=== PATIENT | male | born 1965 | race Caucasian/White ===

== ENCOUNTER → 2017-01-15 | Outpatient (CLI) | payer MEDICARE, OTHER ==
[2017-01-15 13:22] VITALS: BP 134/63; PULSE 65; RESP 16; TEMP 98.2; BMI 39.4
[2017-01-15 14:47] LABS: CH 27.8; CHCM 31.3; HCT 43.5 % (39.0-53.0); HDW 2.38; HGB 13.7 gm/dL (13.0-17.5); Hypochromasia Slight; MCHC 31.4 g/dL (31.0-37.0); MCV 89.2 fL (80.0-100.0); Mean Platelet Volume 8.1; RBC 4.88 m/uL (4.30-5.90); RDW 14.5 % (11.5-15.5); WBC 5.3 k/uL (3.8-10.6)
[2017-01-15 14:54] LABS: INR 1.1 (<1.2); Partial Thromboplastin Time 23.3 sec (22.0-30.0); Prothrombin Time 11.1 sec (9.0-12.0)
[2017-01-15 15:02] LABS: ALT 54 U/L (21-72); AST 47 U/L (17-59); Alkaline Phosphatase 95 U/L (38-126); Anion Gap 8 mmol/L; Blood Urea Nitrogen 29 mg/dL (9-20); Calcium 9.4 mg/dL (8.4-10.2); Carbon Dioxide 28 mmol/L (22-30); Chloride 103 mmol/L (98-107); Cholesterol 137 mg/dL (<200); Glucose 87 mg/dL (74-99); HDL Cholesterol 62 mg/dL (40-60); Iron 46 ug/dL (49-181); Magnesium 1.8 mg/dL (1.6-2.3); Non-African American GFR(MDRD) >60 (>60 ml/min/1.73 sqM); Phosphorous 3.9 mg/dL (2.5-4.5); Potassium 5.2 mmol/L (3.5-5.1); Sodium 139 mmol/L (137-145); Total Bilirubin 0.5 mg/dL (0.2-1.3); Total Protein 7.3 g/dL (6.3-8.2)
[2017-01-15 15:18] LABS: % Iron Saturation 11.8 % (20-50); Prealbumin 25 mg/dL (18-36); Total Iron Binding Capacity 391 ug/dL (261-462)
[2017-01-15 17:45] LABS: Vitamin B12 536 pg/mL (239-931)
[2017-01-15 19:10] LABS: Hemoglobin A1C 5.6 % (4.2-6.1)
[2017-01-17 15:41] LABS: Selenium 127 mcg/L (63-160)
--- NOTE | 2017-01-26 15:21 | P.PN ---
Progress Note - Text DATE OF SERVICE: 01/15/2017 CHIEF COMPLAINT: Followup gastric bypass. HISTORY OF PRESENT ILLNESS: Darion Dickerson is a 51-year-old gentleman who is status post Tj-en-Y gastric bypass from January 2013. He is 4 years out. He reports multiple stressors at home where he is now gained moderate weight. Since his follow-up 1 year ago, he has gained 24 pounds. He now reports new gastroesophageal reflux disease. He is no longer smoking. He is drinking high carbohydrate beverages including Vasiliy-Aid. He also reports developing fatigue. His highest weight for his 5 foot 7 frame was 429 pounds. Today he comes in weighing 251 pounds. He has maintained 178 pound weight loss. Percent excess weight loss is 66 %. His body mass index has been reduced from 67.2 down to 39.5. Total BMI point reduction is 27.9. PAST MEDICAL HISTORY: 1. Morbid obesity. 2. Depression. 3. Osteoarthritis. 4. Hypothyroidism. 5. Gastroesophageal reflux disease, resolved. 6. Cataracts. 7. Carpal tunnel syndrome. 8. Obstructive sleep apnea, resolved. 9. Diabetes type 2, resolved. 10. Anxiety disorder. 11. Dyslipidemia, resolved. PAST SURGICAL HISTORY: 1. Open Tj-en-Y gastric bypass. 2. Bilateral ACL repair. 3. Upper endoscopy. 4. Bilateral carpal tunnel release. 5. Bilateral cataract extraction. 6. Drainage of subcutaneous abdominal abscess. 7. Laparoscopic cholecystectomy. 8. Panniculectomy. MEDICATIONS: 1. Wellbutrin. 2. Vitamin D. 3. Saphris. 4. Vitamin A. 5. Synthroid. 6. Probiotic. 7. Prozac. 8. MiraLax. 9. Multivitamin. ALLERGIES: PENICILLIN. SOCIAL HISTORY: He has discontinued tobacco use. FAMILY HISTORY: Pertinent for morbid obesity including diabetes and obstructive sleep apnea. REVIEW OF SYSTEMS: CONSTITUTIONAL: [place] body weight of 158 pounds. Highest was at 429 pounds. A 178 pound weight loss. A 66% excess weight loss. He is overweight by 93 pounds. ENDOCRINE: Complete resolution of insulin-dependent diabetes. History of hypothyroidism. GASTROINTESTINAL: Resolution of constipation with probiotics. New reports of gastroesophageal reflux disease. HEENT: Wears glasses. No troubles with hearing. PSYCH: History of depression including prior psychosis, now well controlled with medications. CARDIOVASCULAR: No recent heart attack or chest pain. RESPIRATORY: No active sleep apnea. No reports of asthma. MUSCULOSKELETAL: Improvement of osteoarthritis of the joints. NEUROLOGIC: Denies any headache or seizure disorders. HEMATOLOGIC: Denies any easy bruising or bleeding. SKIN: Resolved panniculitis. No skin cancer. PHYSICAL EXAM: VITAL SIGNS: 5 feet 7 inches; 251 pounds. Body mass index 39.5. Vital Signs 01/15/17 13:19 Temperature 98.2 F Pulse Rate 65 Respiratory 16 Rate Blood Pressure 134/63 ABDOMEN: Soft, nontender. Nondistended. GENERAL: Well-developed male in no acute distress. HEENT: No sclera icterus. Extraocular movements grossly intact. Moist buccal mucosa. Head is atraumatic, normocephalic. Hears conversational speech. No nasal drainage. NECK: Supple without lymphadenopathy. No JV distention. CHEST: Non-labored respirations and equal bilateral excursions. CARDIOVASCULAR: Regular rate and rhythm. Palpable 2+ radial pulses. MUSCULOSKELETAL: No clubbing, cyanosis or edema. NEUROLOGIC: No focal or lateralizing signs. Cranial 2 through 12 intact. PSYCH: Appropriate affect. Alert and oriented to person, place and time. SKIN: Well perfused. Good skin turgor. LABS: Laboratory Last Values WBC 5.3 k/uL (3.8-10.6) 01/15/17 14:10 RBC 4.88 m/uL (4.30-5.90) 01/15/17 14:10 Hgb 13.7 gm/dL (13.0-17.5) 01/15/17 14:10 Hct 43.5 % (39.0-53.0) 01/15/17 14:10 MCV 89.2 fL (80.0-100.0) 01/15/17 14:10 MCH 28.0 pg (25.0-35.0) 01/15/17 14:10 MCHC 31.4 g/dL (31.0-37.0) 01/15/17 14:10 RDW 14.5 % (11.5-15.5) 01/15/17 14:10 Plt Count 239 k/uL (150-450) 01/15/17 14:10 Hypochromasia Slight 01/15/17 14:10 PT 11.1 sec (9.0-12.0) 01/15/17 14:10 INR 1.1 (<1.2) 01/15/17 14:10 APTT 23.3 sec (22.0-30.0) 01/15/17 14:10 Sodium 139 mmol/L (137-145) 01/15/17 14:10 Potassium 5.2 mmol/L (3.5-5.1) H 01/15/17 14:10 Chloride 103 mmol/L (98-107) 01/15/17 14:10 Carbon Dioxide 28 mmol/L (22-30) 01/15/17 14:10 Anion Gap 8 mmol/L 01/15/17 14:10 BUN 29 mg/dL (9-20) H 01/15/17 14:10 Creatinine 0.80 mg/dL (0.66-1.25) 01/15/17 14:10 Est GFR (MDRD) Af Amer >60 (>60 ml/min/1.73 sqM) 01/15/17 14:10 Est GFR (MDRD) Non-Af >60 (>60 ml/min/1.73 sqM) 01/15/17 14:10 Glucose 87 mg/dL (74-99) 01/15/17 14:[address] Glu mg/dL 114 mg/dL 01/15/17 14:10 Hemoglobin A1c 5.6 % (4.2-6.1) 01/15/17 14:10 Calcium 9.4 mg/dL (8.4-10.2) 01/15/17 14:10 Phosphorus 3.9 mg/dL (2.5-4.5) 01/15/17 14:10 Magnesium 1.8 mg/dL (1.6-2.3) 01/15/17 14:10 Iron 46 ug/dL (49-181) L 01/15/17 14:10 TIBC 391 ug/dL (261-462) 01/15/17 14:10 % Saturation 11.8 % (20-50) L 01/15/17 14:10 Ferritin 8 ng/mL (18-464) L 01/15/17 14:10 Total Bilirubin 0.5 mg/dL (0.2-1.3) 01/15/17 14:10 AST 47 U/L (17-59) 01/15/17 14:10 ALT 54 U/L (21-72) 01/15/17 14:10 Alkaline Phosphatase 95 U/L (38-126) 01/15/17 14:10 Total Protein 7.3 g/dL (6.3-8.2) 01/15/17 14:10 Albumin 4.4 g/dL (3.5-5.0) 01/15/17 14:10 Prealbumin 25 mg/dL (18-36) 01/15/17 14:10 Triglycerides 90 mg/dL (<150) 01/15/17 14:10 Cholesterol 137 mg/dL (<200) 01/15/17 14:10 LDL Cholesterol, Calc 57 mg/dL (0-99) 01/15/17 14:10 HDL Cholesterol 62 mg/dL (40-60) H 01/15/17 14:10 Vitamin A 52 ug/dL (38-106) 01/15/17 14:10 Vitamin B1 68 ug/L (38-122) 01/15/17 14:10 Vitamin B12 536 pg/mL (239-931) 01/15/17 14:10 Vitamin D 25-Hydroxy 31.8 ng/mL (30.0-100.0) 01/15/17 14:10 Folate 19.70 ng/mL (>2.75) 01/15/17 14:10 TSH 2.100 mIU/L (0.465-4.680) 01/15/17 14:10 PTH Intact 81.1 pg/mL (14.0-72.0) H 01/15/17 14:10 Copper 1058 ug/L (665-1480) 01/15/17 14:10 Selenium 127 mcg/L (63-160) 01/15/17 14:10 Zinc 59 ug/dL (60-130) L 01/15/17 14:10 ASSESSMENT: 1. Morbid obesity due to excess caloric intake 2. Body mass index reduced from 67.2 down to 39.5. 3. Status post massive weight loss, 178 pounds. 4. History of Tj-en-Y gastric bypass. 5. Weight regain following bariatric procedure. 6. Dysphagia to solid foods. 7. Zinc deficiency. 8. Secondary hyperparathyroidism. 9. Iron deficiency anemia. 10. Chronic constipation. PLAN: 1. Recommend upper endoscopy with balloon dilatation. 2. Recommend bariatric metabolic panel. 3. MiraLAX for constipation. 4. Zinc supplement. 5. Iron supplement.
== END | disposition home or self-care (01) ==
LOC: BARWHC3 12:58
PROVIDERS: ATTEND Surgery Plastic and Reconstructive Surgery
DX: Z48.815 Encounter for surgical aftercare following surgery on the digestive system (principal); E60 Dietary zinc deficiency; N25.81 Secondary hyperparathyroidism of renal origin; D50.9 Iron deficiency anemia, unspecified; F32.9 Major depressive disorder, single episode, unspecified; M19.90 Unspecified osteoarthritis, unspecified site; E03.9 Hypothyroidism, unspecified; G56.00 Carpal tunnel syndrome, unspecified upper limb; F41.9 Anxiety disorder, unspecified; E89.1 Postprocedural hypoinsulinemia; D50.8 Other iron deficiency anemias; K90.89 Other intestinal malabsorption; E55.9 Vitamin D deficiency, unspecified; K76.9 Liver disease, unspecified; T56.894A Toxic effect of other metals, undetermined, initial encounter; K50.90 Crohn's disease, unspecified, without complications; E66.01 Morbid (severe) obesity due to excess calories; Z68.39 Body mass index [BMI] 39.0-39.9, adult; Z79.899 Other long term (current) drug therapy; Z88.0 Allergy status to penicillin; Z98.84 Bariatric surgery status
CPT/HCPCS: 84255; 84134; 84425; 80061; 80053; 82607; 82728; 83036; 82525; 82746; 83540; 83550; 83735; 84100; 84443; 84590; 84630; 85027; 85610; 85730; 82306; 83970; G0463; 99211

== ENCOUNTER 2017-01-23 11:11 | Day surgery (SDC) | payer MEDICARE, OTHER ==
[2017-01-22 09:00] VITALS: BMI 39.4
[2017-01-23 11:31] VITALS: RESP 16; TEMP 97.5
[2017-01-23] MEDS: LACTATED RINGERS 1,000 ML IV SCH ×2 (11:40→12:16)
[2017-01-23] MEDS ORDERED: LIDOCAINE 1% 20 ML VIAL (10MG/ML) FOR IV START INTRADERMA ONE (11:41)
[2017-01-23] MEDS ORDERED: LIDOCAINE 1% INJ 10MG/ML (20 ML MDV) ONE (12:19)
[2017-01-23] MEDS ORDERED: PROPOFOL 10 MG/ML 20 ML VIAL IV ONE (12:19)
--- NOTE | 2017-01-23 12:36 | P.GSHP ---
History of Present Illness H&P Date: 01/23/17 CHIEF COMPLAINT: GERD HISTORY OF PRESENT ILLNESS: The patient is a 51-year-old male who presents reports gastroesophageal reflux disease. Upper endoscopy was offered for further evaluation and management. PAST MEDICAL HISTORY: Please see list. PAST SURGICAL HISTORY: Please see list. MEDICATIONS: Please see list. ALLERGIES: Please see list. SOCIAL HISTORY: No illicit drug use FAMILY HISTORY: No reports of Crohn disease or ulcerative colitis. REVIEW OF ORGAN SYSTEMS: CONSTITUTIONAL: No reports of fevers or chills. GI: Denies any blood in stools or constipation. PHYSICAL EXAM: VITAL SIGNS: Stable GENERAL: Well-developed and pleasant in no acute distress. HEENT: No scleral icterus. Extraocular movements grossly intact. Moist buccal mucosa. NECK: Supple without lymphadenopathy. CHEST: Unlabored respirations. Equal bilateral excursions. CARDIOVASCULAR: Regular rate and rhythm. Distal 2+ pulses. ABDOMEN: Soft, nondistended. MUSCULOSKELETAL: No clubbing, cyanosis, or edema. ASSESSMENT: 1. Gastroesophageal reflux disease PLAN: 1. Recommend proceeding with an upper endoscopy Past Medical History Past Medical History: Sleep Apnea/CPAP/BIPAP, Thyroid Disorder Additional Past Medical History / Comment(s): Sinus Problems, Arthritis, Physical limitations, Eating Disorder and fractures. History of Any Multi-Drug Resistant Organisms: None Reported, MRSA Date of last positivie culture/infection: 2012 MDRO Source:: wound Past Surgical History: Bariatric Surgery, Cholecystectomy, Orthopedic Surgery Additional Past Surgical History / Comment(s): Carpal Tunnel,Foot Surgery L Knee ACL,gastric bypass 02/02/2016, elbow surgery bilateral, panniculectomy Past Anesthesia/Blood Transfusion Reactions: Previous Problems w/ Anesthesia, Motion Sickness Additional Past Anesthesia/Blood Transfusion Reaction / Comment(s): Difficult to rouse after administration of anesthesia, motion sickness. Smoking Status: Never smoker - Past Family History Sister(s) Family Medical History: Deep Vein Thrombosis (DVT) Medications and Allergies Home Medications Medication Instructions Recorded Confirmed Type Calcium Citrate/Vitamin D3 3 each PO DAILY 11/10/13 01/23/17 History [Calcium Citrate - Vit D3 Tab] Levothyroxine Sodium [Synthroid] 50 mcg PO DAILY 11/10/13 01/23/17 History FLUoxetine HCL [PROzac] 60 mg PO DAILY 01/19/14 01/23/17 History Asenapine Maleate [Saphris] 15 mg SL HS 10/24/14 01/23/17 History Multivitamin [Men's Multi-Vitamin] 1 each PO DAILY 10/24/14 01/23/17 History Vitamin A 8,000 unit PO DAILY 10/24/14 01/23/17 History Cholecalciferol [Vitamin D3] 1,000 unit PO DAILY 01/12/15 01/23/17 History buPROPion XL [Wellbutrin XL] 450 mg PO DAILY 01/20/15 01/23/17 History L.acidoph,Paracasei, B.lactis 1 each PO DAILY 08/23/15 01/23/17 History [Probiotic] Omeprazole [PriLOSEC] 40 mg PO DAILY 01/15/17 01/23/17 History Allergies Allergy/AdvReac Type Severity Reaction Status Date / Time Penicillins Allergy Rash/Hives Verified 01/23/17 11:19 Surgical - Exam Vital Signs Temp Pulse Resp BP Pulse Ox 97.5 F L 53 L 16 110/67 97 01/23/17 11:30 01/23/17 11:30 01/23/17 11:30 01/23/17 11:30 01/23/17 11:30
--- NOTE | 2017-01-23 12:40 | P.PCN ---
Date of Procedure: 01/23/17 Preoperative Diagnosis: Postoperative Diagnosis: Procedure(s) Performed: Implants: Indications for Procedure: Operative Findings: Description of Procedure: PREOPERATIVE DIAGNOSIS: Dysphagia. s/p Tj-en-y gastric bypass. Gastroesophageal reflux disease. POSTOPERATIVE DIAGNOSIS: Dysphagia. s/p Tj-en-y gastric bypass. Gastric stenosis. Gastroesophageal reflux disease. Gastrointestinal anomaly involving stomach and jejunum. OPERATION: Esophagogastrojejunoscopy with balloon dilatation from 16 to 20 mm. SURGEON: Lisseth Sexton MD ANESTHESIA: MAC. INDICATIONS: The patient is a 51-year-old male who presents with a history of dysphagia, gastric bypass including new-onset nausea and vomiting. Benefits and risks of the procedure were described. Informed consent was obtained. DESCRIPTION: The patient was brought into the endoscopy suite and laid in the left lateral decubitus position. After a timeout was confirmed, the procedure was initiated. An Olympus gastroscope was passed along the posterior oropharynx down to the distal esophagus where the squamocolumnar junction was unremarkable. The gastric pouch was entered. A gastrojejunal stricture of 16 mm was found as the adult gastroscope was 9.5 mm in size. A [employer] balloon dilator was placed through the scope. Final insufflation up to 20 mm was performed with a total of 2 minutes. The scope was advanced up to 50 cm from the incisors into the Tj limb. The mucosa of the gastrojejunal anastomosis was intact. No chronic gastrojejunal marginal ulcer was encountered. No full-thickness injury was encountered. The GI tract was desufflated. The patient tolerated the procedure well. The patient had an unusual gastric anomaly where 3 orifices were identified from his gastric pouch. Each orifice was probed consistent with jejunum. Separately, gastric gastric fistula cannot be excluded. FINDINGS: Stricture of approximately 16 mm encountered. No chronic gastrojejunal ulceration encountered. Successful balloon dilatation to 20 mm. Gastric pouch 3 cm. The patient had an unusual gastric anomaly where 3 orifices were identified from his gastric pouch. Each orifice was probed consistent with jejunum. Separately, gastric gastric fistula cannot be excluded. RECOMMENDATIONS: Recommend upper GI for further assessment Plan - Discharge Summary New Discharge Prescriptions: No Action Calcium Citrate/Vitamin D3 [Calcium Citrate - Vit D3 Tab] 3 each PO DAILY Levothyroxine Sodium [Synthroid] 50 mcg PO DAILY FLUoxetine HCL [PROzac] 60 mg PO DAILY Vitamin A 8,000 unit PO DAILY Asenapine Maleate [Saphris] 15 mg SL HS Multivitamin [Men's Multi-Vitamin] 1 each PO DAILY Cholecalciferol [Vitamin D3] 1,000 unit PO DAILY buPROPion XL [Wellbutrin XL] 450 mg PO DAILY Polyethylene Glycol 3350 [Miralax] 17 gm PO DAILY #765 powder L.acidoph,Paracasei, B.lactis [Probiotic] 1 each PO DAILY Omeprazole [PriLOSEC] 40 mg PO DAILY Discharge Medication List Calcium Citrate/Vitamin D3 [Calcium Citrate - Vit D3 Tab] 3 each PO DAILY [History] Levothyroxine Sodium [Synthroid] 50 mcg PO DAILY 11/10/13 [History] FLUoxetine HCL [PROzac] 60 mg PO DAILY 01/19/14 [History] Asenapine Maleate [Saphris] 15 mg SL HS 10/24/14 [History] Multivitamin [Men's Multi-Vitamin] 1 each PO DAILY 10/24/14 [History] Vitamin A 8,000 unit PO DAILY 10/24/14 [History] Cholecalciferol [Vitamin D3] 1,000 unit PO DAILY 01/12/15 [History] buPROPion XL [Wellbutrin XL] 450 mg PO DAILY 01/20/15 [History] Polyethylene Glycol 3350 [Miralax] 17 gm PO DAILY #765 powder 07/26/15 [Rx] L.acidoph,Paracasei, B.lactis [Probiotic] 1 each PO DAILY 08/23/15 [History] Omeprazole [PriLOSEC] 40 mg PO DAILY 01/15/17 [History]
[2017-01-23 13:02] VITALS: BP 121/70; PULSE 54
--- NOTE | 2017-01-23 14:38 | FL ---
EXAMINATION TYPE: FL esophagus cervic/pharynx DATE OF EXAM: 01/23/2017 HISTORY: History of gastric bypass surgery 3 years ago with significant weight loss. Had EGD today wi dilatation. Abnormal findings during endoscopy today. COMPARISON: CT abdomen and pelvis March 31, 2013 TECHNIQUE: A single contrast esophagram is performed utilizing Gastrografin due to procedure earlier today. A total of 51 seconds of fluoroscopic time was utilized during procedure. FINDINGS: Preprocedure mottler machine feeder image shows cholecystectomy clips. Numerous sutures and clips just below diaphragm are present consistent with patient's surgical history. Patient drank contrast without difficulty. The esophagus shows satisfactory motility and emptying int o the gastric remnant. Along the left lateral margin of remnant There is contained linear outpouching. There is subsequent flow into small bowel anastomosis along ri ght inferior margin into small bowel loops inferior to this. A second area of contained linear extrav asation along the level of anastomosis left lateral margin is also identified. This is slightly more irregular and longer in appearance and slightly more prominent in size. No free extravasation is wisam dent. No communication with the gastric remnant is definitively identified. IMPRESSION: Correlating with EGD note there is primary anastomosis and 2 abnormal tracts or diverticu lum from the remnant stomach as detailed above.
== END 2017-01-23 13:03 | disposition home or self-care (01) ==
LOC: ORWHC2ENDO 11:11
PROVIDERS: ATTEND Surgery Plastic and Reconstructive Surgery
DX: K31.89 Other diseases of stomach and duodenum (principal); Q45.8 Other specified congenital malformations of digestive system; K21.9 Gastro-esophageal reflux disease without esophagitis; Z98.84 Bariatric surgery status; E07.89 Other specified disorders of thyroid; G47.33 Obstructive sleep apnea (adult) (pediatric); Z99.89 Dependence on other enabling machines and devices; Z79.899 Other long term (current) drug therapy; Z88.0 Allergy status to penicillin
CPT/HCPCS: 74210; 43245; Q9967; J2001; J2704; C1726; 43220

== ENCOUNTER → 2017-02-05 | Outpatient (CLI) | payer MEDICARE, OTHER ==
--- NOTE | 2017-03-15 04:57 | P.PN ---
Progress Note - Text DATE OF SERVICE: 02/05/2017 CHIEF COMPLAINT: Followup gastric bypass. HISTORY OF PRESENT ILLNESS: Darion Dickerson is a 51-year-old gentleman who is status post Tj-en-Y gastric bypass from January 2013. He is 4 years out. His highest weight for his 5 foot 7 frame was 429 pounds. Today he comes in weighing 248 pounds. He has maintained 181 pound weight loss. Percent excess weight loss is 67 %. His body mass index has been reduced from 67.2 down to 38.9. He complained of recent increasing abdominal pain of the epigastrium. He had an upper endoscopy with findings of anatomical abnormality of his gastrojejunal bypass. Separately, he complains of malodorous flatulence. With his increased epigastric abdominal pain and findings of anatomical abnormality of his procedure, he presents for surgical evaluation. PAST MEDICAL HISTORY: 1. Morbid obesity. 2. Depression. 3. Osteoarthritis. 4. Hypothyroidism. 5. Gastroesophageal reflux disease, resolved. 6. Cataracts. 7. Carpal tunnel syndrome. 8. Obstructive sleep apnea, resolved. 9. Diabetes type 2, resolved. 10. Anxiety disorder. 11. Dyslipidemia, resolved. PAST SURGICAL HISTORY: 1. Open Tj-en-Y gastric bypass. 2. Bilateral ACL repair. 3. Upper endoscopy. 4. Bilateral carpal tunnel release. 5. Bilateral cataract extraction. 6. Drainage of subcutaneous abdominal abscess. 7. Laparoscopic cholecystectomy. 8. Panniculectomy. MEDICATIONS: 1. Wellbutrin. 2. Vitamin D. 3. Saphris. 4. Vitamin A. 5. Synthroid. 6. Probiotic. 7. Prozac. 8. MiraLax. 9. Multivitamin. ALLERGIES: PENICILLIN. SOCIAL HISTORY: He has discontinued tobacco use. FAMILY HISTORY: Pertinent for morbid obesity including diabetes and obstructive sleep apnea. REVIEW OF SYSTEMS: CONSTITUTIONAL: [place] body weight of 158 pounds. Highest was at 429 pounds. A 181 pound weight loss. A 67% excess weight loss. He is overweight by 90 pounds. ENDOCRINE: Complete resolution of insulin-dependent diabetes. History of hypothyroidism. GASTROINTESTINAL: Resolution of constipation with probiotics. New reports of gastroesophageal reflux disease. HEENT: Wears glasses. No troubles with hearing. PSYCH: History of depression including prior psychosis, now well controlled with medications. CARDIOVASCULAR: No recent heart attack or chest pain. RESPIRATORY: No active sleep apnea. No reports of asthma. MUSCULOSKELETAL: Improvement of osteoarthritis of the joints. NEUROLOGIC: Denies any headache or seizure disorders. HEMATOLOGIC: Denies any easy bruising or bleeding. SKIN: Resolved panniculitis. No skin cancer. PHYSICAL EXAM: VITAL SIGNS: 5 feet 7 inches; 248 pounds. Body mass index 38.9. Vital Signs Temp 98.4 F 02/05/17 14:31 Pulse 64 02/05/17 14:31 Resp 16 02/05/17 14:31 BP 134/67 02/05/17 14:31 Pulse Ox ABDOMEN: Soft. Nondistended. Mild tenderness of the epigastrium. GENERAL: Well-developed male in no acute distress. HEENT: No sclera icterus. Extraocular movements grossly intact. Moist buccal mucosa. Head is atraumatic, normocephalic. Hears conversational speech. No nasal drainage. NECK: Supple without lymphadenopathy. No JV distention. CHEST: Non-labored respirations and equal bilateral excursions. CARDIOVASCULAR: Regular rate and rhythm. Palpable 2+ radial pulses. MUSCULOSKELETAL: No clubbing, cyanosis or edema. NEUROLOGIC: No focal or lateralizing signs. Cranial 2 through 12 intact. PSYCH: Appropriate affect. Alert and oriented to person, place and time. SKIN: Well perfused. Good skin turgor. STUDIES: Upper endoscopy findings and images reviewed with him demonstrating 3 different orifices along his gastrojejunostomy. Upper GI study also reviewed in detail with imaging confirming abnormality of his gastrojejunostomy bypass. LABS: Laboratory Last Values WBC 5.3 k/uL (3.8-10.6) 01/15/17 14:10 RBC 4.88 m/uL (4.30-5.90) 01/15/17 14:10 Hgb 13.7 gm/dL (13.0-17.5) 01/15/17 14:10 Hct 43.5 % (39.0-53.0) 01/15/17 14:10 MCV 89.2 fL (80.0-100.0) 01/15/17 14:10 MCH 28.0 pg (25.0-35.0) 01/15/17 14:10 MCHC 31.4 g/dL (31.0-37.0) 01/15/17 14:10 RDW 14.5 % (11.5-15.5) 01/15/17 14:10 Plt Count 239 k/uL (150-450) 01/15/17 14:10 Hypochromasia Slight 01/15/17 14:10 PT 11.1 sec (9.0-12.0) 01/15/17 14:10 INR 1.1 (<1.2) 01/15/17 14:10 APTT 23.3 sec (22.0-30.0) 01/15/17 14:10 Sodium 139 mmol/L (137-145) 01/15/17 14:10 Potassium 5.2 mmol/L (3.5-5.1) H 01/15/17 14:10 Chloride 103 mmol/L (98-107) 01/15/17 14:10 Carbon Dioxide 28 mmol/L (22-30) 01/15/17 14:10 Anion Gap 8 mmol/L 01/15/17 14:10 BUN 29 mg/dL (9-20) H 01/15/17 14:10 Creatinine 0.80 mg/dL (0.66-1.25) 01/15/17 14:10 Est GFR (MDRD) Af Amer >60 (>60 ml/min/1.73 sqM) 01/15/17 14:10 Est GFR (MDRD) Non-Af >60 (>60 ml/min/1.73 sqM) 01/15/17 14:10 Glucose 87 mg/dL (74-99) 01/15/17 14:[address] Glu mg/dL 114 mg/dL 01/15/17 14:10 Hemoglobin A1c 5.6 % (4.2-6.1) 01/15/17 14:10 Calcium 9.4 mg/dL (8.4-10.2) 01/15/17 14:10 Phosphorus 3.9 mg/dL (2.5-4.5) 01/15/17 14:10 Magnesium 1.8 mg/dL (1.6-2.3) 01/15/17 14:10 Iron 46 ug/dL (49-181) L 01/15/17 14:10 TIBC 391 ug/dL (261-462) 01/15/17 14:10 % Saturation 11.8 % (20-50) L 01/15/17 14:10 Ferritin 8 ng/mL (18-464) L 01/15/17 14:10 Total Bilirubin 0.5 mg/dL (0.2-1.3) 01/15/17 14:10 AST 47 U/L (17-59) 01/15/17 14:10 ALT 54 U/L (21-72) 01/15/17 14:10 Alkaline Phosphatase 95 U/L (38-126) 01/15/17 14:10 Total Protein 7.3 g/dL (6.3-8.2) 01/15/17 14:10 Albumin 4.4 g/dL (3.5-5.0) 01/15/17 14:10 Prealbumin 25 mg/dL (18-36) 01/15/17 14:10 Triglycerides 90 mg/dL (<150) 01/15/17 14:10 Cholesterol 137 mg/dL (<200) 01/15/17 14:10 LDL Cholesterol, Calc 57 mg/dL (0-99) 01/15/17 14:10 HDL Cholesterol 62 mg/dL (40-60) H 01/15/17 14:10 Vitamin A 52 ug/dL (38-106) 01/15/17 14:10 Vitamin B1 68 ug/L (38-122) 01/15/17 14:10 Vitamin B12 536 pg/mL (239-931) 01/15/17 14:10 Vitamin D 25-Hydroxy 31.8 ng/mL (30.0-100.0) 01/15/17 14:10 Folate 19.70 ng/mL (>2.75) 01/15/17 14:10 TSH 2.100 mIU/L (0.465-4.680) 01/15/17 14:10 PTH Intact 81.1 pg/mL (14.0-72.0) H 01/15/17 14:10 Copper 1058 ug/L (665-1480) 01/15/17 14:10 Selenium 127 mcg/L (63-160) 01/15/17 14:10 Zinc 59 ug/dL (60-130) L 01/15/17 14:10 ASSESSMENT: 1. Morbid obesity due to excess caloric intake 2. Body mass index reduced from 67.2 down to 38.9 3. Status post massive weight loss, 181 pounds. 4. History of Tj-en-Y gastric bypass. 5. Weight regain following bariatric procedure. 6. Dysphagia to solid foods. 7. Zinc deficiency. 8. Secondary hyperparathyroidism. 9. Iron deficiency anemia. 10. Chronic constipation. 11. 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 12. Epigastric abdominal pain. 13. Zinc deficiency. PLAN: 1. Recommend iron supplement for iron deficiency anemia symptomatic. He has intolerance to oral supplement hence iron infusion advised. 2. He has a symptomatic abnormality of his gastrojejunal bypass with which will require correction with revision of his gastrojejunostomy. Lysis of adhesions is anticipated including bowel resection. Benefits and risks were described to him in detail including bleeding, infection, leaks, nutritional deficiencies, potential weight loss. 3. Will need inpatient hospitalization at this bit over 2 nights. 4. DVT prophylaxis. 5. Antibiotic prophylaxis recommended. The patient has penicillin ALLERGY and is high risk of infection. Recommend vancomycin preop to decrease risk of surgical site infection. 6. Recommend Zinc supplement 50 mg daily. 7. Recommend 2 week high-protein low caloric diet to address underlying hepatomegaly. 8. Additional prescription of MiraLAX written on his behalf.
== END | disposition home or self-care (01) ==
CPT/HCPCS: 99211

== ENCOUNTER → 2017-05-01 | Outpatient (CLI) | payer MEDICARE, OTHER ==
[2017-05-01 11:40] VITALS: BP 130/80; PULSE 65; RESP 16; TEMP 100; BMI 38.7
[2017-05-01 12:18] LABS: HCT 45.9 % (39.0-53.0); HGB 14.3 gm/dL (13.0-17.5); MCH 28.9 pg (25.0-35.0); MCHC 31.2 g/dL (31.0-37.0); MCV 92.8 fL (80.0-100.0); Mean Platelet Volume 6.8; Platelet Count 246 k/uL (150-450); RBC 4.95 m/uL (4.30-5.90); RDW 15.4 % (11.5-15.5); WBC 5.1 k/uL (3.8-10.6)
[2017-05-01 12:29] LABS: ALT 61 U/L (21-72); AST 37 U/L (17-59); Albumin 4.2 g/dL (3.5-5.0); Alkaline Phosphatase 94 U/L (38-126); Anion Gap 8 mmol/L; Blood Urea Nitrogen 18 mg/dL (9-20); Calcium 9.8 mg/dL (8.4-10.2); Carbon Dioxide 31 mmol/L (22-30); Chloride 104 mmol/L (98-107); Glucose 89 mg/dL (74-99); Potassium 4.4 mmol/L (3.5-5.1); Sodium 143 mmol/L (137-145); Total Bilirubin 0.3 mg/dL (0.2-1.3); Total Protein 7.2 g/dL (6.3-8.2)
--- NOTE | 2017-06-29 14:45 | P.PN ---
Progress Note - Text Progress Note Date: 05/01/17 DATE OF SERVICE: 05/01/2017 CHIEF COMPLAINT: Followup gastric bypass. HISTORY OF PRESENT ILLNESS: Darion Dickerson is a 51-year-old gentleman who is status post Tj-en-Y gastric bypass from January 2013. He is 4 years out. His highest weight for his 5 foot 7 frame was 429 pounds. Today he comes in weighing 247 pounds. He has maintained 182 pound weight loss. Percent excess weight loss is 67 %. His body mass index has been reduced from 67.3 down to 38.7. 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 He had severe intra-abdominal adhesions. Now her presents for follow- up for lysis of adhesions. Reports his abdominal pain has improved. PHYSICAL EXAM: VITAL SIGNS: 5 feet 7 inches; 247 pounds. Body mass index 38.7. Vital Signs Temp 100 F H 05/01/17 11:35 Pulse 65 05/01/17 11:35 Resp 16 05/01/17 11:35 BP 130/80 05/01/17 11:35 Pulse Ox ABDOMEN: Soft. Nondistended. All incisions are clean dry and intact. Mild abdominal bruising. GENERAL: Well-developed male in no acute distress. HEENT: No sclera icterus. Extraocular movements grossly intact. Moist buccal mucosa. Head is atraumatic, normocephalic. Hears conversational speech. No nasal drainage. NECK: Supple without lymphadenopathy. No JV distention. CHEST: Non-labored respirations and equal bilateral excursions. CARDIOVASCULAR: Regular rate and rhythm. Palpable 2+ radial pulses. MUSCULOSKELETAL: No clubbing, cyanosis or edema. NEUROLOGIC: No focal or lateralizing signs. Cranial 2 through 12 intact. PSYCH: Appropriate affect. Alert and oriented to person, place and time. SKIN: Well perfused. Good skin turgor. ASSESSMENT: 1. Morbid obesity due to excess caloric intake 2. Body mass index reduced from 67.2 down to 38.7 3. Status post massive weight loss, 182 pounds. 4. 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 5. Epigastric abdominal pain. 6. Severe intra-abdominal adhesions. PLAN: 1. He has severe intra-abdominal adhesions which curtailed his initial surgery. 2. With his history of gastrojejunal stricture, recommend revision of his gastric bypass. 3. Recommend follow-up in the future.
== END | disposition home or self-care (01) ==
LOC: BARWHC3 10:49
PROVIDERS: ATTEND Surgery Plastic and Reconstructive Surgery
DX: Z09 Encounter for follow-up examination after completed treatment for conditions other than malignant neoplasm (principal); E66.01 Morbid (severe) obesity due to excess calories; K66.0 Peritoneal adhesions (postprocedural) (postinfection); Z68.38 Body mass index [BMI] 38.0-38.9, adult; Z98.84 Bariatric surgery status
CPT/HCPCS: 80053; 85027; G0463; 99211

== ENCOUNTER → 2017-05-07 | Outpatient (CLI) | payer MEDICARE, OTHER ==
[2017-05-07 13:35] VITALS: BP 130/68; PULSE 56; RESP 16; TEMP 98; BMI 39.2
--- NOTE | 2017-05-07 14:15 | P.PN ---
Progress Note - Text Progress Note Date: 05/07/17 To whom it may concern: Darion Dickerson is under my surgical care. He may return to work on May 14, 2017. Regards, Lisseth Sexton MD, FACS
--- NOTE | 2017-06-29 19:05 | P.PN ---
Subjective Progress Note Date: 05/07/17 DATE OF SERVICE: 05/07/2017 CHIEF COMPLAINT: Followup gastric bypass. HISTORY OF PRESENT ILLNESS: Darion Dickerson is a 51-year-old gentleman who is status post Tj-en-Y gastric bypass from January 2013. He is 4 years out. His highest weight for his 5 foot 7 frame was 429 pounds. Today he comes in weighing 250 pounds. He has maintained 179 pound weight loss. Percent excess weight loss is 66%. His body mass index has been reduced from 67.3 down to 39.2. She is feeling tired. No further reports of constipation. Abdominal pain has improved. PHYSICAL EXAM: VITAL SIGNS: 5 feet 7 inches; 250 pounds. Body mass index 39.2. Vital Signs Temp 98.0 F 05/07/17 13:32 Pulse 56 L 05/07/17 13:32 Resp 16 05/07/17 13:32 BP 130/68 05/07/17 13:32 Pulse Ox ABDOMEN: Soft. Nondistended. All incisions granulated. GENERAL: Well-developed male in no acute distress. HEENT: No sclera icterus. Extraocular movements grossly intact. Moist buccal mucosa. Head is atraumatic, normocephalic. Hears conversational speech. No nasal drainage. NECK: Supple without lymphadenopathy. No JV distention. CHEST: Non-labored respirations and equal bilateral excursions. CARDIOVASCULAR: Regular rate and rhythm. Palpable 2+ radial pulses. MUSCULOSKELETAL: No clubbing, cyanosis or edema. NEUROLOGIC: No focal or lateralizing signs. Cranial 2 through 12 intact. PSYCH: Appropriate affect. Alert and oriented to person, place and time. SKIN: Well perfused. Good skin turgor. ASSESSMENT: 1. Morbid obesity due to excess caloric intake 2. Body mass index reduced from 67.2 down to 39.2. 3. Status post massive weight loss, 179 pounds. 4. 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 5. Epigastric abdominal pain. 6. Severe intra-abdominal adhesions. PLAN: 1. He is doing well and may return to work. 2. Recommend follow-up next year. Objective - Vital Signs Vital signs: Vital Signs Temp 98.0 F 05/07/17 13:32 Pulse 56 L 05/07/17 13:32 Resp 16 05/07/17 13:32 BP 130/68 05/07/17 13:32 Pulse Ox Intake & Output 05/06/17 05/07/17 05/07/17 18:59 06:59 18:59 Weight 113.455 kg
== END | disposition home or self-care (01) ==
LOC: BARWHC3 12:44
PROVIDERS: ATTEND Surgery Plastic and Reconstructive Surgery
DX: Z48.815 Encounter for surgical aftercare following surgery on the digestive system (principal); K66.0 Peritoneal adhesions (postprocedural) (postinfection); K95.89 Other complications of other bariatric procedure; E66.01 Morbid (severe) obesity due to excess calories; R10.13 Epigastric pain; Z98.84 Bariatric surgery status; Z68.39 Body mass index [BMI] 39.0-39.9, adult
CPT/HCPCS: 99211

== ENCOUNTER → 2017-08-27 | Outpatient (CLI) | payer MEDICARE, OTHER ==
[2017-08-27 16:38] VITALS: BP 119/83; PULSE 60; TEMP 98.3; BMI 40.4
--- NOTE | 2017-10-10 10:58 | P.PN ---
Subjective Progress Note Date: 08/27/17 DATE OF SERVICE: 08/27/2017 CHIEF COMPLAINT: Followup gastric bypass. HISTORY OF PRESENT ILLNESS: Darion Dickerson is a 51-year-old gentleman who is status post Tj-en-Y gastric bypass from January 2013. He is over 4 years out. His highest weight for his 5 foot 7 frame was 429 pounds. Today he comes in weighing 257 pounds. He has gained 7 pounds in 4 months. He has maintained 172 pound weight loss. Percent excess weight loss is 63%. His body mass index has been reduced from 67.3 down to 40.4. 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 This reports epigastric abdominal pain as a result. From his lowest weight, he has gained 31 pounds in 3 years. He reports eating more carbs. He has history of severe intra-abdominal adhesions requiring lysis from his last operation over 3 months. PAST MEDICAL HISTORY: 1. Morbid obesity, BMI 67.3, initial 2. Depression. 3. Osteoarthritis. 4. Hypothyroidism. 5. Gastroesophageal reflux disease, resolved. 6. Cataracts. 7. Carpal tunnel syndrome. 8. Obstructive sleep apnea, resolved. 9. Diabetes type 2, resolved. 10. Anxiety disorder. 11. Dyslipidemia, resolved. PAST SURGICAL HISTORY: 1. Open Tj-en-Y gastric bypass. 2. Bilateral ACL repair. 3. Upper endoscopy. 4. Bilateral carpal tunnel release. 5. Bilateral cataract extraction. 6. Drainage of subcutaneous abdominal abscess. 7. Laparoscopic cholecystectomy. 8. Panniculectomy. 9. Lysis of adhesions MEDICATIONS: 1. Wellbutrin. 2. Vitamin D. 3. Saphris. 4. Vitamin A. 5. Synthroid. 6. Probiotic. 7. Prozac. 8. MiraLax. 9. Multivitamin. 10. Vitamin E 11. Prilosec 12. Calcium ALLERGIES: PENICILLIN. SOCIAL HISTORY: He has discontinued tobacco use. FAMILY HISTORY: Pertinent for morbid obesity including diabetes and obstructive sleep apnea. REVIEW OF SYSTEMS: CONSTITUTIONAL: His highest weight for his 5 foot 7 frame was 429 pounds. Today he comes in weighing 257 pounds. He has gained 7 pounds in 4 months. He has maintained 172 pound weight loss. Percent excess weight loss is 63%. His body mass index has been reduced from 67.3 down to 40.4. ENDOCRINE: Complete resolution of insulin-dependent diabetes. History of hypothyroidism. GASTROINTESTINAL: Resolution of constipation with probiotics. New reports of gastroesophageal reflux disease. HEENT: Wears glasses. No troubles with hearing. PSYCH: History of depression including prior psychosis, now well controlled with medications. CARDIOVASCULAR: No recent heart attack or chest pain. RESPIRATORY: No active sleep apnea. No reports of asthma. MUSCULOSKELETAL: Improvement of osteoarthritis of the joints. NEUROLOGIC: Denies any headache or seizure disorders. HEMATOLOGIC: Denies any easy bruising or bleeding. SKIN: Resolved panniculitis. No skin cancer. PHYSICAL EXAM: VITAL SIGNS: 5 feet 7 inches; 257 pounds. Body mass index 40.4. Vital Signs Temp 98.3 F 08/27/17 16:36 Pulse 60 08/27/17 16:36 Resp BP 119/83 08/27/17 16:36 Pulse Ox ABDOMEN: Soft. Nondistended. Nontender. GENERAL: Well-developed male in no acute distress. HEENT: No sclera icterus. Extraocular movements grossly intact. Moist buccal mucosa. Head is atraumatic, normocephalic. Hears conversational speech. No nasal drainage. NECK: Supple without lymphadenopathy. No JV distention. CHEST: Non-labored respirations and equal bilateral excursions. CARDIOVASCULAR: Regular rate and rhythm. Palpable 2+ radial pulses. MUSCULOSKELETAL: No clubbing, cyanosis or edema. NEUROLOGIC: No focal or lateralizing signs. Cranial 2 through 12 intact. PSYCH: Appropriate affect. Alert and oriented to person, place and time. SKIN: Well perfused. Good skin turgor. ASSESSMENT: 1. Morbid obesity due to excess caloric intake 2. Body mass index reduced from 67.2 down to 40.4 3. Status post massive weight loss, 172 pounds. 4. Epigastric abdominal pain 5. Complications from bariatric procedure 6. Peritoneal adhesions 7. Bipolar disorder. 8. Dietary surveillance and counseling. PLAN: 1. 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 2. Surgical intervention with robotic-assisted takedown of gastrojejunal anastomosis was described. With his history of adhesions, procedure may need at least 4 hours. 3. Recommend correction of nutritional deficiencies prior to operation. 4. Ketogenic diet 2 weeks prior to procedure. 5. Patient wishes to evaluate for procedure in November or December of this year. 6. DVT prophylaxis. 7. Antibiotic prophylaxis. Objective - Vital Signs Vital signs: Vital Signs Temp 98.3 F 08/27/17 16:36 Pulse 60 08/27/17 16:36 Resp BP 119/83 08/27/17 16:36 Pulse Ox Intake & Output 08/26/17 08/27/17 08/27/17 18:59 06:59 18:59 Weight 116.891 kg
== END | disposition home or self-care (01) ==
LOC: BARWHC3 15:07
PROVIDERS: ATTEND Surgery Plastic and Reconstructive Surgery
DX: Z09 Encounter for follow-up examination after completed treatment for conditions other than malignant neoplasm (principal); E66.01 Morbid (severe) obesity due to excess calories; R10.13 Epigastric pain; K95.89 Other complications of other bariatric procedure; K66.0 Peritoneal adhesions (postprocedural) (postinfection); F31.9 Bipolar disorder, unspecified; Z71.3 Dietary counseling and surveillance; Z68.41 Body mass index [BMI] 40.0-44.9, adult; Z88.0 Allergy status to penicillin; Z79.899 Other long term (current) drug therapy
CPT/HCPCS: 99211

== ENCOUNTER → 2017-12-03 | Outpatient (CLI) | payer MEDICARE, OTHER ==
[2017-12-03 15:22] VITALS: BP 135/61; PULSE 69; RESP 15; TEMP 99.1; BMI 40.4
--- NOTE | 2017-12-03 15:49 | P.PN ---
Subjective Progress Note Date: 12/03/17 DATE OF SERVICE: 12/03/2017 CHIEF COMPLAINT: Followup gastric bypass. HISTORY OF PRESENT ILLNESS: Darion Dickerson is a 52-year-old gentleman who is status post Tj-en-Y gastric bypass from January 2013. He is over 4.5 years out. His highest weight for his 5 foot 7 frame was 429 pounds. Today he comes in weighing 258 pounds from 257 pounds, 3 months ago. He has gained 1 pounds in 3 months. He has maintained 171 pound weight loss. Percent excess weight loss is 63%. His body mass index has been reduced from 67.3 down to 40.5. He reports spasms of the right lower quadrant. He has history of severe intra- abdominal scar tissue. 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 He now presents for further evaluation and management. PAST MEDICAL HISTORY: 1. Morbid obesity, BMI 67.3, initial 2. Depression. 3. Osteoarthritis. 4. Hypothyroidism. 5. Gastroesophageal reflux disease, resolved. 6. Cataracts. 7. Carpal tunnel syndrome. 8. Obstructive sleep apnea, resolved. 9. Diabetes type 2, resolved. 10. Anxiety disorder. 11. Dyslipidemia, resolved. PAST SURGICAL HISTORY: 1. Open Tj-en-Y gastric bypass. 2. Bilateral ACL repair. 3. Upper endoscopy. 4. Bilateral carpal tunnel release. 5. Bilateral cataract extraction. 6. Drainage of subcutaneous abdominal abscess. 7. Laparoscopic cholecystectomy. 8. Panniculectomy. 9. Lysis of adhesions MEDICATIONS: 1. Wellbutrin. 2. Vitamin D. 3. Saphris. 4. Vitamin A. 5. Synthroid. 6. Probiotic. 7. Prozac. 8. MiraLax. 9. Multivitamin. 10. Vitamin E 11. Prilosec 12. Calcium ALLERGIES: PENICILLIN. SOCIAL HISTORY: He has discontinued tobacco use. FAMILY HISTORY: Pertinent for morbid obesity including diabetes and obstructive sleep apnea. REVIEW OF SYSTEMS: CONSTITUTIONAL: His highest weight for his 5 foot 7 frame was 429 pounds. Today he comes in weighing 258 pounds from 257 pounds, 3 months ago. He has gained 1 pounds in 3 months. He has maintained 171 pound weight loss. Percent excess weight loss is 63%. His body mass index has been reduced from 67.3 down to 40.5. ENDOCRINE: Complete resolution of insulin-dependent diabetes. History of hypothyroidism. GASTROINTESTINAL: No blood in stools. Has gastroesophageal reflux disease. HEENT: Wears glasses. No troubles with hearing. PSYCH: History of depression including prior psychosis, now well controlled with medications. CARDIOVASCULAR: No recent heart attack or chest pain. RESPIRATORY: No active sleep apnea. No reports of asthma. MUSCULOSKELETAL: Improvement of osteoarthritis of the joints. NEUROLOGIC: Denies any headache or seizure disorders. HEMATOLOGIC: Denies any easy bruising or bleeding. SKIN: Resolved panniculitis. No skin cancer. PHYSICAL EXAM: VITAL SIGNS: 5 feet 7 inches; 258 pounds. Body mass index 40.5. Vital Signs Temp 99.1 F 12/03/17 15:04 Pulse 69 12/03/17 15:04 Resp 15 12/03/17 15:04 BP 135/61 12/03/17 15:04 Pulse Ox ABDOMEN: Soft. Nondistended. Nontender. GENERAL: Well-developed male in no acute distress. HEENT: No sclera icterus. Extraocular movements grossly intact. Moist buccal mucosa. Head is atraumatic, normocephalic. Hears conversational speech. No nasal drainage. NECK: Supple without lymphadenopathy. No JV distention. CHEST: Non-labored respirations and equal bilateral excursions. CARDIOVASCULAR: Regular rate and rhythm. Palpable 2+ radial pulses. MUSCULOSKELETAL: No clubbing, cyanosis or edema. NEUROLOGIC: No focal or lateralizing signs. Cranial 2 through 12 intact. PSYCH: Appropriate affect. Alert and oriented to person, place and time. SKIN: Well perfused. Good skin turgor. ASSESSMENT: 1. Morbid obesity due to excess caloric intake 2. Body mass index reduced from 67.2 down to 40.5 3. Status post massive weight loss, 171 pounds. 4. Epigastric abdominal pain 5. Complications from bariatric procedure 6. Peritoneal adhesions 7. Bipolar disorder. 8. Dietary surveillance and counseling. PLAN: 1. Will proceed with revision of gastro-jejunostomy. 2. Scar tissue removal of 3-hrs anticipated.. 3. He has known prostatic uropathy post-op 4. Inpatient hospitalization of 2 nights or more described. 5. Two week protein diet advised. 6. Adjustment of thyroid medication to 75 mcg. Will repeat TSH in 1 month. Objective - Vital Signs Vital signs: Vital Signs Temp 99.1 F 12/03/17 15:04 Pulse 69 12/03/17 15:04 Resp 15 12/03/17 15:04 BP 135/61 12/03/17 15:04 Pulse Ox Intake & Output 12/02/17 12/03/17 12/03/17 18:59 06:59 18:59 Weight 117.163 kg
== END | disposition home or self-care (01) ==
LOC: BARWHC3 14:50
PROVIDERS: ATTEND Surgery Plastic and Reconstructive Surgery
DX: E66.01 Morbid (severe) obesity due to excess calories (principal); R10.13 Epigastric pain; F41.9 Anxiety disorder, unspecified; K95.89 Other complications of other bariatric procedure; K66.0 Peritoneal adhesions (postprocedural) (postinfection); R63.4 Abnormal weight loss; Z68.41 Body mass index [BMI] 40.0-44.9, adult; Z71.3 Dietary counseling and surveillance; Z72.0 Tobacco use; Z88.0 Allergy status to penicillin; Z79.899 Other long term (current) drug therapy; F32.9 Major depressive disorder, single episode, unspecified; Z98.84 Bariatric surgery status
CPT/HCPCS: 99211

== ENCOUNTER → 2018-01-21 | Outpatient (CLI) | payer MEDICARE, OTHER ==
[2018-01-21 16:26] LABS: Basophils % (A) 0 %; Eosinophils # (A) 0.1 k/uL (0-0.7); Eosinophils % (A) 1 %; HCT 46.8 % (39.0-53.0); HGB 15.1 gm/dL (13.0-17.5); Lymphocytes # (A) 1.9 k/uL (1.0-4.8); Lymphocytes % (A) 28 %; MCH 29.2 pg (25.0-35.0); MCHC 32.3 g/dL (31.0-37.0); MCV 90.3 fL (80.0-100.0); Monocytes # (A) 0.5 k/uL (0-1.0); Monocytes % (A) 7 %; Neutrophils % (A) 61 %; Platelet Count 209 k/uL (150-450); RBC 5.18 m/uL (4.30-5.90); RDW 14.2 % (11.5-15.5); WBC 6.6 k/uL (3.8-10.6)
[2018-01-21 16:35] LABS: ALT 56 U/L (21-72); AST 58 U/L (17-59); Albumin 4.5 g/dL (3.5-5.0); Alkaline Phosphatase 97 U/L (38-126); Anion Gap 10 mmol/L; Blood Urea Nitrogen 34 mg/dL (9-20); Calcium 9.6 mg/dL (8.4-10.2); Carbon Dioxide 28 mmol/L (22-30); Chloride 101 mmol/L (98-107); Glucose 98 mg/dL (74-99); Potassium 4.2 mmol/L (3.5-5.1); Sodium 139 mmol/L (137-145); Total Bilirubin 0.9 mg/dL (0.2-1.3); Total Protein 7.2 g/dL (6.3-8.2)
== END | disposition home or self-care (01) ==
LOC: LABPAT 15:49
PROVIDERS: ATTEND Surgery Plastic and Reconstructive Surgery
DX: Z01.812 Encounter for preprocedural laboratory examination (principal); K63.89 Other specified diseases of intestine
CPT/HCPCS: 36415; 80053; 85025

== ENCOUNTER → 2018-01-21 | Outpatient (CLI) | payer MEDICARE, OTHER ==
--- NOTE | 2018-01-21 15:05 | P.PN ---
Subjective Progress Note Date: 01/21/18 HPI: He reports occassional upper epigastric pain. He has personal history of gastrojejunal anomaly. ABDOMEN: Has midline hernia PLAN: 1. Revision of gastrojejunal anastomosis. 2. Risks described. 3. Get CT scan of the abdomen and pelvis for pre-surgical planning and concern for abdominal hernia.
[2018-01-21 15:53] VITALS: BP 113/68; PULSE 73; RESP 16; TEMP 98.5; BMI 40.8
--- NOTE | 2018-01-21 15:58 | CT ---
EXAMINATION TYPE: CT abdomen pelvis wo con DATE OF EXAM: 01/21/2018 HISTORY: kidney stones/preop revising stomach pouch CT DLP: 1365.3 mGycm. Automated Exposure Control for Dose Reduction was Utilized. TECHNIQUE: CT scan of the abdomen and pelvis is performed without oral or IV contrast. COMPARISON: CT abdomen and pelvis March 26, 2013 and March 31, 2013. FINDINGS: Within the limitations of a non-contrast study, the following observations are made. LUNG BASES: Bilateral gynecomastia is noted on current study. LIVER/GB: Interval cholecystectomy with new surgical clips gallbladder fossa. PANCREAS: Moderate to severe generalized fat replaced atrophy of pancreas is redemonstrated. SPLEEN: No significant abnormality is seen. ADRENALS: No significant abnormality is seen. KIDNEYS: On current exam there is new 5 mm calculus left kidney upper to mid pole level axial image 5 6. On current exam there is new 6 mm calculus anteriorly lower pole level right kidney axial image 70 . No hydronephrosis or obstructing ureter calculi are seen bilaterally. No intraluminal calculi in th e bladder are seen. Scattered pelvic phleboliths are present. BOWEL: Evaluation bowel is suboptimal secondary to lack of enteric contrast. Surgical changes from ga stric bypass procedure epigastric region are redemonstrated. There is prominent bowel loop near surgi alee sutures in the left midabdomen axial image 70 on current study. Remainder of small and large eduard l shows no suspicious dilatation. Few scattered colonic diverticula are felt present. No acute divert iculitis is seen. GENITAL ORGANS: No gross abnormality seen. LYMPH NODES: No greater than 1cm abdominal or pelvic lymph nodes are appreciated. OSSEOUS STRUCTURES: There is mild to moderate multilevel spurring and disc space narrowing. Multileve l facet arthropathy lower lumbar spine is seen. OTHER: Vertical midline scar over anterior abdominal wall is redemonstrated. IMPRESSION: New bilateral single nonobstructing renal calculi. No hydronephrosis or obstructing urete r calculi identified.
== END | disposition home or self-care (01) ==
LOC: BARWHC3 14:12
PROVIDERS: ATTEND Surgery Plastic and Reconstructive Surgery
DX: N20.0 Calculus of kidney (principal); R10.2 Pelvic and perineal pain; Z87.19 Personal history of other diseases of the digestive system
CPT/HCPCS: 74176; G0463; 99211

== ENCOUNTER 2018-02-02 07:15 | Inpatient (IN) | payer MEDICARE, OTHER ==
[2018-01-20 14:25] VITALS: BMI 41.9
--- NOTE | 2018-02-01 17:13 | P.GSHP ---
History of Present Illness H&P Date: 02/02/18 DATE OF SERVICE: 02/02/2018 CHIEF COMPLAINT: Tongue locations of gastric bypass HISTORY OF PRESENT ILLNESS: Darion Dickerson is a 52-year-old gentleman who is status post Tj-en-Y gastric bypass from January 2013. He is over 5 years out. His highest weight for his 5 foot 7 frame was 429 pounds. Today he comes in weighing 264 pounds. He has gained 6 pounds in 5 months. He has maintained 165 pound weight loss. Percent excess weight loss is 61%. His body mass index has been reduced from 67.3 down to 41.4. 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 He reports epigastric abdominal pain as a result. From his lowest weight, he has gained 37 pounds in 3 years. He reports eating more carbs. He has history of severe intra-abdominal adhesions. PAST MEDICAL HISTORY: 1. Morbid obesity, BMI 67.3, initial 2. Depression. 3. Osteoarthritis. 4. Hypothyroidism. 5. Gastroesophageal reflux disease, resolved. 6. Cataracts. 7. Carpal tunnel syndrome. 8. Obstructive sleep apnea, resolved. 9. Diabetes type 2, resolved. 10. Anxiety disorder. 11. Dyslipidemia, resolved. PAST SURGICAL HISTORY: 1. Open Tj-en-Y gastric bypass. 2. Bilateral ACL repair. 3. Upper endoscopy. 4. Bilateral carpal tunnel release. 5. Bilateral cataract extraction. 6. Drainage of subcutaneous abdominal abscess. 7. Laparoscopic cholecystectomy. 8. Panniculectomy. 9. Lysis of adhesions MEDICATIONS: 1. Wellbutrin. 2. Vitamin D. 3. Saphris. 4. Vitamin A. 5. Synthroid. 6. Probiotic. 7. Prozac. 8. MiraLax. 9. Multivitamin. 10. Vitamin E 11. Prilosec 12. Calcium ALLERGIES: PENICILLIN. SOCIAL HISTORY: He has discontinued tobacco use. FAMILY HISTORY: Pertinent for morbid obesity including diabetes and obstructive sleep apnea. REVIEW OF SYSTEMS: CONSTITUTIONAL: His highest weight for his 5 foot 7 frame was 429 pounds. Today he comes in weighing 263 pounds. He has gained 6 pounds in 5 months. He has maintained 165 pound weight loss. Percent excess weight loss is 61%. His body mass index has been reduced from 67.3 down to 41.4. ENDOCRINE: Complete resolution of insulin-dependent diabetes. History of hypothyroidism. GASTROINTESTINAL: Resolution of constipation with probiotics. New reports of gastroesophageal reflux disease. HEENT: Wears glasses. No troubles with hearing. PSYCH: History of depression including prior psychosis, now well controlled with medications. CARDIOVASCULAR: No recent heart attack or chest pain. RESPIRATORY: No active sleep apnea. No reports of asthma. MUSCULOSKELETAL: Improvement of osteoarthritis of the joints. NEUROLOGIC: Denies any headache or seizure disorders. HEMATOLOGIC: Denies any easy bruising or bleeding. SKIN: Resolved panniculitis. No skin cancer. PHYSICAL EXAM: VITAL SIGNS: 5 feet 7 inches; 263 pounds. Body mass index 41.4 ABDOMEN: Soft. Nondistended. Nontender. GENERAL: Well-developed male in no acute distress. HEENT: No sclera icterus. Extraocular movements grossly intact. Moist buccal mucosa. Head is atraumatic, normocephalic. Hears conversational speech. No nasal drainage. NECK: Supple without lymphadenopathy. No JV distention. CHEST: Non-labored respirations and equal bilateral excursions. CARDIOVASCULAR: Regular rate and rhythm. Palpable 2+ radial pulses. MUSCULOSKELETAL: No clubbing, cyanosis or edema. NEUROLOGIC: No focal or lateralizing signs. Cranial 2 through 12 intact. PSYCH: Appropriate affect. Alert and oriented to person, place and time. SKIN: Well perfused. Good skin turgor. ASSESSMENT: 1. Morbid obesity due to excess caloric intake 2. Body mass index reduced from 67.2 down to 41.4 3. Status post massive weight loss, 165 pounds. 4. Epigastric abdominal pain 5. Complications from bariatric procedure 6. Peritoneal adhesions 7. Bipolar disorder. 8. Dietary surveillance and counseling. PLAN: 1. 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 2. Surgical intervention with robotic-assisted takedown of gastrojejunal anastomosis was described. With his history of adhesions, procedure may need at least 4 hours. 3. DVT prophylaxis. 4. Antibiotic prophylaxis. 5. Inpatient hospitalization anticipated more than 2 nights. Past Medical History Past Medical History: GERD/Reflux, Osteoarthritis (OA), Thyroid Disorder Additional Past Medical History / Comment(s): Sinus Problems. Hx of an Eating Disorder, no current issues. "mild heart attack 3 yrs ago, no problems since." History of Any Multi-Drug Resistant Organisms: MRSA Date of last positivie culture/infection: 2012 MDRO Source:: wound on stomach Past Surgical History: Bariatric Surgery, Cholecystectomy, Orthopedic Surgery Additional Past Surgical History / Comment(s): Bilateral Carpal Tunnel, Left Foot Surgery, Left Knee ACL, gastric bypass 02/02/2016, elbow surgery bilateral, panniculectomy. Past Anesthesia/Blood Transfusion Reactions: Previous Problems w/ Anesthesia, Motion Sickness Additional Past Anesthesia/Blood Transfusion Reaction / Comment(s): Difficult to rouse after administration of anesthesia, difficulty w/urination after having catheter Past Psychological History: Anxiety, Depression, Schizoaffective Disorder Smoking Status: Former smoker Past Alcohol Use History: None Reported Additional Past Alcohol Use History / Comment(s): quit smoking 4 1/2 yrs ago, <1 /2 ppd Past Drug Use History: None Reported - Past Family History Sister(s) Family Medical History: Deep Vein Thrombosis (DVT) Medications and Allergies Home Medications Medication Instructions Recorded Confirmed Type Calcium Citrate/Vitamin D3 3 tab PO DAILY 11/10/13 01/21/18 History [Calcium Citrate - Vit D3 Tab] FLUoxetine HCL [PROzac] 60 mg PO QAM 01/19/14 01/21/18 History Asenapine Maleate [Saphris] 15 mg SL HS 10/24/14 01/21/18 History Multivitamin [Men's Multi-Vitamin] 1 tab PO DAILY 10/24/14 01/21/18 History Vitamin A 8,000 unit PO DAILY 10/24/14 01/21/18 History Cholecalciferol [Vitamin D3] 1,000 unit PO DAILY 01/12/15 01/21/18 History buPROPion XL [Wellbutrin XL] 450 mg PO QAM 01/20/15 01/21/18 History Polyethylene Glycol 3350 [Miralax] 17 gm PO DAILY #548 gm 02/26/17 01/21/18 Rx Vitamin E (Dl,Tocopheryl Acet) 400 unit PO DAILY 04/17/17 01/21/18 History [Vitamin E] Levothyroxine Sodium [Synthroid] 50 mcg PO DAILY 01/20/18 01/21/18 History Allergies Allergy/AdvReac Type Severity Reaction Status Date / Time Penicillins Allergy Rash/Hives Verified 01/21/18 15:56
[~2018-02-02 07:15] MED LIST: CHLORHEXIDINE GLUCONATE 15 ML CUP MUCOUS MEM ONE; DEXAMETHASONE SOD PHOSPHATE 10 MG/ML 1 ML VIAL IV ONE; ENOXAPARIN 40 MG/0.4 ML SYRINGE SQ STA; HYDROmorphone 0.5 MG/0.5 ML SYRINGE IVP PRN; LACTATED RINGERS 1,000 ML IV SCH; ONDANSETRON 4 MG/2 ML VIAL IVP ONE; PANTOPRAZOLE 40 MG/10 ML VIAL IV STA; ceFAZolin IN SWFI 2 GM/20 ML SYRINGE IVP ONE
[2018-02-02] MEDS ORDERED: LIDOCAINE 1% 20 ML VIAL (10MG/ML) FOR IV START INTRADERMA ONE (08:18)
[2018-02-02] MEDS ORDERED: fentaNYL (PF) 50 MCG/ML 2 ML AMP ONE (10:50)
[2018-02-02] MEDS ORDERED: GLYCOPYRROLATE 0.2 MG/ML 2 ML VIAL ONE (10:50)
[2018-02-02] MEDS ORDERED: ROCURONIUM BROMIDE 10 MG/ML 10 ML VIAL IV ONE (10:50)
[2018-02-02] MEDS ORDERED: LIDOCAINE 1% INJ 10MG/ML (20 ML MDV) ONE (10:50)
[2018-02-02] MEDS ORDERED: NEOSTIGMINE 1 MG/ML 10 ML VIAL ONE (10:50)
[2018-02-02] MEDS ORDERED: MIDAZOLAM 2 MG/2 ML VIAL ONE (10:50)
[2018-02-02] MEDS ORDERED: PROPOFOL 10 MG/ML 20 ML VIAL IV ONE (10:50)
[2018-02-02] MEDS ORDERED: SUCCINYLCHOLINE CHLORIDE VIAL 200 MG/10 ML VIAL IV ONE (10:50)
[2018-02-02] MEDS ORDERED: BUPIVACAIN-EPI 0.5%-1:200,000 30 ML VIAL SQ ONE (11:10)
[2018-02-02] MEDS ORDERED: LACTATED RINGERS 1,000 ML IV ONE ×2 (11:49→13:01)
[2018-02-02] MEDS: LACTATED RINGERS 1,000 ML IV ONE ×2 (11:49→16:52)
[2018-02-02 14:21] VITALS: TEMP 97.8
[2018-02-02] MEDS ORDERED: TAMSULOSIN 0.4 MG CAP.ER.24H PO STA (14:36)
--- NOTE | 2018-02-02 15:05 | P.OP ---
Date of Procedure: 02/02/18 Description of Procedure: SURGEON: PHYLICIA BECK MD PREOPERATIVE DIAGNOSES: 1. Morbid obesity due to excess caloric intake 2. Body mass index reduced from 67.2 down to 39.3 3. Status post massive weight loss, 182 pounds. 4. Epigastric abdominal pain 5. Complications from bariatric procedure 6. Peritoneal adhesions 7. Bipolar disorder. 8. Dietary surveillance and counseling. 9. History of gastric gastric fistula POSTOPERATIVE DIAGNOSES: 1. Morbid obesity due to excess calories. 1. Morbid obesity due to excess caloric intake 2. Body mass index reduced from 67.2 down to 39.3 3. Status post massive weight loss, 182 pounds. 4. Epigastric abdominal pain 5. Complications from bariatric procedure 6. Peritoneal adhesions 7. Bipolar disorder. 8. Dietary surveillance and counseling. 9. Severe intra-abdominal and interloop adhesions, greater omentum to the anterior abdominal wall 10. History of gastric gastric fistula OPERATION: 1. Attempted Robotic-assisted da Sandra Xi laparoscopic repair of gastric gastric fistula resolved to extensive lysis of adhesions over 1.5 hrs COMPLICATIONS: None. Anesthesia: GETA, local Estimated Blood Loss (ml): 20 Pathology: none sent Condition: stable Disposition: same day OPERATIVE FINDINGS: 1. Severe peritoneal adhesions including along the epigastrium, midline and left upper quadrant small bowel adhesion to the anterior abdominal wall without enterotomies. INDICATIONS: Darion Dickerson is a 52-year-old gentleman who is status post Tj-en -Y gastric bypass from January 2013. He is over 5 years out. His highest weight for his 5 foot 7 frame was 429 pounds. Today he comes in weighing 246 pounds from 264 pounds, 1 month ago. He has gained lost 20 pounds in 1 month. He has maintained 183 pound weight loss. Percent excess weight loss is over 63%. His body mass index has been reduced from 67.3 down to 39.3. 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 He reports epigastric abdominal pain as a result. Surgical intervention with repair of gastric gastric fistula was described. Informed consent was obtained. Robotic assisted laparoscopic approach was described. Benefits and risks of the procedure including but not limited to bleeding, infection, injury to the small bowel was described. Informed consent was obtained. DESCRIPTION OF PROCEDURE: Patient was brought to the operating room, placed in supine position. After general induction, the abdomen had been prepped and draped in standard sterile fashion. The robotic da Sandra XI system was primed. After a timeout protocol was performed, the patient had been prepped and draped in standard sterile fashion. The robot was docked along the right lateral abdomen. A 5 mm 0 degrees laparoscopic trocar entry was performed along the left upper quadrant. However due to severe adhesions, laparoscopic trocar entry was performed along the right upper abdomen. The abdomen was insufflated to 15 mmHg pressure which he tolerated well. Diagnostic laparoscopy demonstrated severe intra-abdominal adhesions limiting view along the epigastrium, left, and mid- abdomen. The small bowel was entirely adhesed to the midline obstructing view of the liver and stomach. Severe adhesions involved the greater omentum to the anterior abdominal wall to the midline, epigastrium and left upper quadrant was confirmed. No small bowel dilation was found or suggestion of obstruction. No injury to the bowel, viscera or mesentery was identified. Next, three 8 mm robotic ports were placed along the right lateral abdomen. The camera 8-mm port was initially docked along the right upper quadrant where the least amount of adhesions were found. Please note that the ports were placed at least 8 cm away from the target anatomy. Instruments were interchanged using only 3 ports for a grasper, vessel sealer, and scissors with cautery. Instruments were interchanged by the refinery operator assistant including Bovie cautery scissors. I had sat at the console. The camera was initially positioned along the right upper quadrant with one trocar at the right lower abdomen to address adhesions followed by placement of vessel sealer after changing the camera port. Extensive lysis of adhesions of 109 minutes was performed to free the small bowel from the abdominal wall including to address interloop adhesions. Carefully the adhesions were taken down without injury to the small bowel. Given the severity of adhesions for entry alone, moderate adhesions were also identified at the upper abdomen which itself would require over 4-6 hours of surgery. As result of the unexpected finding of the severe adhesions for entry of the abdomen, the rest of the gastric gastric fistula portion of the case was aborted. The robot was undocked. All pneumoperitoneum and instruments were evacuated from the abdominal cavity. The incisions were reapproximated using 4-0 Monocryl in an interrupted subcuticular fashion. Please note along the trocar sites, local anesthetic was placed as a field block prior to insertion of all instruments. Liquid glue was applied to the skin. At the end of the procedure needle, sponge, and instrument count had been verified correct by the surgical supply assistant. The patient was transferred to postanesthesia care unit in stable condition. Intraoperative images including findings were described to the patients family. Console time 109 minutes Plan - Discharge Summary Discharge Rx Participant: Yes New Discharge Prescriptions: No Action Calcium Citrate/Vitamin D3 [Calcium Citrate - Vit D3 Tab] 3 tab PO DAILY FLUoxetine HCL [PROzac] 60 mg PO QAM Vitamin A 8,000 unit PO DAILY Asenapine Maleate [Saphris] 15 mg SL HS Multivitamin [Men's Multi-Vitamin] 1 tab PO DAILY Cholecalciferol [Vitamin D3] 1,000 unit PO DAILY buPROPion XL [Wellbutrin XL] 450 mg PO QAM Polyethylene Glycol 3350 [Miralax] 17 gm PO DAILY #548 gm Vitamin E (Dl,Tocopheryl Acet) [Vitamin E] 400 unit PO DAILY Levothyroxine Sodium [Synthroid] 50 mcg PO DAILY Discharge Medication List Calcium Citrate/Vitamin D3 [Calcium Citrate - Vit D3 Tab] 3 tab PO DAILY [History] FLUoxetine HCL [PROzac] 60 mg PO QAM 01/19/14 [History] Asenapine Maleate [Saphris] 15 mg SL HS 10/24/14 [History] Multivitamin [Men's Multi-Vitamin] 1 tab PO DAILY 10/24/14 [History] Vitamin A 8,000 unit PO DAILY 10/24/14 [History] Cholecalciferol [Vitamin D3] 1,000 unit PO DAILY 01/12/15 [History] buPROPion XL [Wellbutrin XL] 450 mg PO QAM 01/20/15 [History] Polyethylene Glycol 3350 [Miralax] 17 gm PO DAILY #548 gm 02/26/17 [Rx] Vitamin E (Dl,Tocopheryl Acet) [Vitamin E] 400 unit PO DAILY 04/17/17 [History] Levothyroxine Sodium [Synthroid] 50 mcg PO DAILY 01/20/18 [History] Follow up Appointment(s)/Referral(s): [facility],. [NON-STAFF] - 02/04/18 2:00 pm Patient Instructions/Handouts: *[facility] - (Anesthesia) Discharge Instructions Outpatient Surgery, Lysis of Abdominal Adhesions (DC) Activity/Diet/Wound Care/Special Instructions: May shower. No bath soaks. No lifting over 4 pounds in 1 week Discharge Disposition: HOME SELF-CARE
[2018-02-02 15:08] VITALS: RESP 18
[2018-02-02 16:25] VITALS: BP 130/70; PULSE 78
--- NOTE | 2018-02-02 18:11 | P.DS ---
Providers Date of admission: 02/02/18 07:15 Expected date of discharge: 02/02/18 Attending physician: Lisseth Sexton Primary care physician: Yusef Ventura - Discharge Diagnosis(es) (1) Morbid obesity due to excess calories Status: Acute (2) BMI 39.0-39.9,adult Status: Acute (3) Peritoneal adhesions Status: Acute (4) Gastrogastric fistula Status: Acute Hospital Course: POSTOPERATIVE DIAGNOSES: 1. Morbid obesity due to excess calories. 1. Morbid obesity due to excess caloric intake 2. Body mass index reduced from 67.2 down to 39.3 3. Status post massive weight loss, 182 pounds. 4. Epigastric abdominal pain 5. Complications from bariatric procedure 6. Peritoneal adhesions 7. Bipolar disorder. 8. Dietary surveillance and counseling. 9. Severe intra-abdominal and interloop adhesions, greater omentum to the anterior abdominal wall 10. History of gastric gastric fistula The patient is a 52-year-old gentleman who had an attempted gastric fistula repair. Secondary to the severity of peritoneal adhesions, his surgery was curtailed to extensive lysis of adhesions. Prior to discharge, the patient's pain was well-controlled. He was stable for discharge. Procedures: OPERATION: 1. Attempted Robotic-assisted da Sandra Xi laparoscopic repair of gastric gastric fistula resolved to extensive lysis of adhesions over 1.5 hrs COMPLICATIONS: None. Anesthesia: GETA local Estimated Blood Loss (ml): 20 Pathology: none sent Condition: stable Disposition: same day OPERATIVE FINDINGS: 1. Severe peritoneal adhesions including along the epigastrium, Patient Condition at Discharge: Stable Plan - Discharge Summary Discharge Rx Participant: Yes New Discharge Prescriptions: New HYDROcodone/APAP 5-325MG [[place] 5-325] 1 tab PO Q4HR PRN 3 Days #18 tab PRN Reason: Pain No Action Calcium Citrate/Vitamin D3 [Calcium Citrate - Vit D3 Tab] 3 tab PO DAILY FLUoxetine HCL [PROzac] 60 mg PO QAM Vitamin A 8,000 unit PO DAILY Asenapine Maleate [Saphris] 15 mg SL HS Multivitamin [Men's Multi-Vitamin] 1 tab PO DAILY Cholecalciferol [Vitamin D3] 1,000 unit PO DAILY buPROPion XL [Wellbutrin XL] 450 mg PO QAM Polyethylene Glycol 3350 [Miralax] 17 gm PO DAILY #548 gm Vitamin E (Dl,Tocopheryl Acet) [Vitamin E] 400 unit PO DAILY Levothyroxine Sodium [Synthroid] 50 mcg PO DAILY Discharge Medication List Calcium Citrate/Vitamin D3 [Calcium Citrate - Vit D3 Tab] 3 tab PO DAILY [History] FLUoxetine HCL [PROzac] 60 mg PO QAM 01/19/14 [History] Asenapine Maleate [Saphris] 15 mg SL HS 10/24/14 [History] Multivitamin [Men's Multi-Vitamin] 1 tab PO DAILY 10/24/14 [History] Vitamin A 8,000 unit PO DAILY 10/24/14 [History] Cholecalciferol [Vitamin D3] 1,000 unit PO DAILY 01/12/15 [History] buPROPion XL [Wellbutrin XL] 450 mg PO QAM 01/20/15 [History] Polyethylene Glycol 3350 [Miralax] 17 gm PO DAILY #548 gm 02/26/17 [Rx] Vitamin E (Dl,Tocopheryl Acet) [Vitamin E] 400 unit PO DAILY 04/17/17 [History] Levothyroxine Sodium [Synthroid] 50 mcg PO DAILY 01/20/18 [History] HYDROcodone/APAP 5-325MG [[place] 5-325] 1 tab PO Q4HR PRN 3 Days #18 tab [Rx] Follow up Appointment(s)/Referral(s): [facility],. [NON-STAFF] - 02/04/18 2:00 pm Patient Instructions/Handouts: *[facility] - (Anesthesia) Discharge Instructions Outpatient Surgery, Lysis of Abdominal Adhesions (DC) Activity/Diet/Wound Care/Special Instructions: May shower. No bath soaks. No lifting over 4 pounds in 1 week Discharge Disposition: HOME SELF-CARE
== END 2018-02-02 17:02 | disposition home or self-care (01) | DRG 336 ==
LOC: 2ORMAIN 07:15 → 3SUR 13:46 → 2ORMAIN 13:46
PROVIDERS: ADMIT Surgery Plastic and Reconstructive Surgery; ATTEND Surgery Plastic and Reconstructive Surgery
PROC: 8E0W0CZ Robotic Assisted Procedure of Trunk Region, Open Approach (ICD-10-PCS; principal; 2018-02-02 09:25)
PROC: 0DN80ZZ Release Small Intestine, Open Approach (ICD-10-PCS; principal; 2018-02-02 09:25)
PROC: 0DNU0ZZ Release Omentum, Open Approach (ICD-10-PCS; principal; 2018-02-02 09:25)
DX: K95.89 Other complications of other bariatric procedure (principal); K31.6 Fistula of stomach and duodenum; Y83.8 Other surgical procedures as the cause of abnormal reaction of the patient, or of later complication, without mention of misadventure at the time of the procedure; E03.9 Hypothyroidism, unspecified; E66.01 Morbid (severe) obesity due to excess calories; F25.9 Schizoaffective disorder, unspecified; F31.9 Bipolar disorder, unspecified; F41.9 Anxiety disorder, unspecified; I25.2 Old myocardial infarction; K21.9 Gastro-esophageal reflux disease without esophagitis; K66.0 Peritoneal adhesions (postprocedural) (postinfection); Z68.39 Body mass index [BMI] 39.0-39.9, adult; Z79.899 Other long term (current) drug therapy; Z83.3 Family history of diabetes mellitus; Z98.41 Cataract extraction status, right eye; Z98.42 Cataract extraction status, left eye; Z98.84 Bariatric surgery status; Z79.890 Hormone replacement therapy; Z88.0 Allergy status to penicillin; Z71.3 Dietary counseling and surveillance; Z53.09 Procedure and treatment not carried out because of other contraindication
CPT/HCPCS: 86850; 86900; 86901

== ENCOUNTER → 2018-02-04 | Outpatient (CLI) | payer MEDICARE, OTHER ==
[2018-02-04 15:27] VITALS: BP 129/74; PULSE 69; RESP 16; TEMP 98.2; BMI 40.4
--- NOTE | 2018-02-04 15:44 | P.PN ---
Subjective Progress Note Date: 02/04/18 HPI: He is doing well. Details of surgery was decribed. He is urinating well. ABDOMEN: Incisions intact PLAN: 1. Will need 6 hrs+ operation 2. May benefit from Omeprazole Objective - Vital Signs Vital signs: Vital Signs Temp 98.2 F 02/04/18 15:25 Pulse 69 02/04/18 15:25 Resp 16 02/04/18 15:25 BP 129/74 02/04/18 15:25 Pulse Ox Intake & Output 02/03/18 02/04/18 02/04/18 18:59 06:59 18:59 Weight 117.027 kg
[2018-02-04 16:38] LABS: HCT 43.3 % (39.0-53.0); HGB 13.9 gm/dL (13.0-17.5); MCH 29.5 pg (25.0-35.0); MCV 92.3 fL (80.0-100.0); Mean Platelet Volume 8.3; Platelet Count 179 k/uL (150-450); RBC 4.69 m/uL (4.30-5.90); RDW 14.3 % (11.5-15.5); WBC 5.4 k/uL (3.8-10.6)
[2018-02-04 16:45] LABS: INR 1.1 (<1.2)
[2018-02-04 16:46] LABS: Partial Thromboplastin Time 23.5 sec (22.0-30.0); Prothrombin Time 10.7 sec (9.0-12.0)
[2018-02-04 16:51] LABS: ALT 51 U/L (21-72); AST 41 U/L (17-59); Alkaline Phosphatase 92 U/L (38-126); Anion Gap 8 mmol/L; Blood Urea Nitrogen 14 mg/dL (9-20); Calcium 9.2 mg/dL (8.4-10.2); Carbon Dioxide 28 mmol/L (22-30); Chloride 106 mmol/L (98-107); Cholesterol 123 mg/dL (<200); Glucose 92 mg/dL (74-99); HDL Cholesterol 52 mg/dL (40-60); LDL Cholesterol,Calculated 55 mg/dL (0-99); Magnesium 1.8 mg/dL (1.6-2.3); Phosphorus 3.6 mg/dL (2.5-4.5); Potassium 4.3 mmol/L (3.5-5.1); Sodium 142 mmol/L (137-145); Total Bilirubin 0.3 mg/dL (0.2-1.3); Total Protein 6.6 g/dL (6.3-8.2); Triglycerides 78 mg/dL (<150)
[2018-02-05 00:41] LABS: Iron Saturation 17.76 (15.00-50.00)
[2018-02-05 00:47] LABS: Vitamin D 25 Hydroxy 38.2 ng/mL (30.0-100.0)
[2018-02-05 01:05] LABS: Folate, Serum 12.3 ng/mL
[2018-02-05 01:07] LABS: Hemoglobin A1C 5.2 % (4.0-6.0)
[2018-02-05 01:15] LABS: Parathyroid Hormone Intact 110.1 pg/mL (14.0-72.0)
[2018-02-05 13:17] LABS: Zinc, Serum 76 ug/dL (60-130)
[2018-02-06 06:04] LABS: Vitamin B1 75 ug/L (38-122)
[2018-02-06 07:40] LABS: Vitamin A 27 ug/dL (38-106)
[2018-02-06 19:05] LABS: Selenium 108 mcg/L (63-160)
== END | disposition home or self-care (01) ==
LOC: BARWHC3 13:45
PROVIDERS: ATTEND Surgery Plastic and Reconstructive Surgery
DX: E66.01 Morbid (severe) obesity due to excess calories (principal); E22.1 Hyperprolactinemia; D50.8 Other iron deficiency anemias; K90.89 Other intestinal malabsorption; E55.9 Vitamin D deficiency, unspecified; K76.9 Liver disease, unspecified; N19 Unspecified kidney failure; K50.90 Crohn's disease, unspecified, without complications; E89.1 Postprocedural hypoinsulinemia; Z68.41 Body mass index [BMI] 40.0-44.9, adult
CPT/HCPCS: 84255; 84134; 84425; 80061; 80053; 82607; 82728; 82525; 82746; 83540; 83550; 83735; 84100; 84443; 84590; 84630; 85027; 85610; 85730; 82306; 83970; 83036; 36415; G0463; 99211

== ENCOUNTER → 2018-03-25 | Outpatient (CLI) | payer MEDICARE, OTHER ==
--- NOTE | 2018-03-25 15:30 | P.PN ---
Subjective Progress Note Date: 03/25/18 HPI: He had occassional gas pain along the epigastrium that responded to gas-x ABDOMEN: No incision pain PLAN: 1. He wants to defer surgery for the Spring 2018. 2. Monitor thyroid medications.
[2018-03-25 15:32] VITALS: BP 117/78; PULSE 60; RESP 16; TEMP 98.2; BMI 39.9
== END ==
LOC: BARWHC3 14:03
PROVIDERS: ATTEND Surgery Plastic and Reconstructive Surgery
DX: R14.1 Gas pain (principal)
CPT/HCPCS: 99211

== ENCOUNTER → 2018-07-29 | Outpatient (CLI) | payer MEDICARE, OTHER ==
[2018-07-29 17:35] LABS: Basophils % (A) 1 %; Eosinophils # (A) 0.1 k/uL (0-0.7); Eosinophils % (A) 2 %; HCT 46.5 % (39.0-53.0); Lymphocytes # (A) 1.8 k/uL (1.0-4.8); Lymphocytes % (A) 35 %; MCH 30.6 pg (25.0-35.0); MCHC 32.4 g/dL (31.0-37.0); MCV 94.5 fL (80.0-100.0); Mean Platelet Volume 7.3; Monocytes # (A) 0.4 k/uL (0-1.0); Monocytes % (A) 7 %; Neutrophils # (A) 2.7 k/uL (1.3-7.7); Neutrophils % (A) 53 %; Platelet Count 190 k/uL (150-450); RBC 4.92 m/uL (4.30-5.90); RDW 13.9 % (11.5-15.5); WBC 5.1 k/uL (3.8-10.6)
[2018-07-29 17:46] LABS: ALT 40 U/L (21-72); AST 38 U/L (17-59); Albumin 4.2 g/dL (3.5-5.0); Alkaline Phosphatase 95 U/L (38-126); Anion Gap 7 mmol/L; Blood Urea Nitrogen 22 mg/dL (9-20); Calcium 9.5 mg/dL (8.4-10.2); Carbon Dioxide 31 mmol/L (22-30); Chloride 104 mmol/L (98-107); Glucose 95 mg/dL (74-99); Potassium 4.6 mmol/L (3.5-5.1); Sodium 142 mmol/L (137-145); Total Bilirubin 0.5 mg/dL (0.2-1.3); Total Protein 6.8 g/dL (6.3-8.2)
== END ==
LOC: LABPAT 16:36
PROVIDERS: ATTEND Surgery Plastic and Reconstructive Surgery
DX: Z01.818 Encounter for other preprocedural examination (principal); Z01.812 Encounter for preprocedural laboratory examination
CPT/HCPCS: 36415; 80053; 85025; 93005

== ENCOUNTER → 2018-07-29 | Outpatient (CLI) | payer MEDICARE, OTHER ==
[2018-07-29 15:24] VITALS: BP 127/74; PULSE 73; RESP 16; TEMP 97.6; BMI 40.7
--- NOTE | 2018-07-29 16:07 | P.PN ---
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 ABDOMEN: Tender at the epigastrium PLAN: 1. Revision of gastrojejunal anastomosis 2. Inpatient hospitalization described Objective - Vital Signs Vital signs: Vital Signs Temp 97.6 F 07/29/18 15:21 Pulse 73 07/29/18 15:21 Resp 16 07/29/18 15:21 BP 127/74 07/29/18 15:21 Pulse Ox Intake & Output 07/28/18 07/29/18 07/29/18 18:59 06:59 18:59 Weight 117.934 kg
== END ==
LOC: BARWHC3 14:14
PROVIDERS: ATTEND Surgery Plastic and Reconstructive Surgery
DX: R10.13 Epigastric pain (principal); Q45.8 Other specified congenital malformations of digestive system
CPT/HCPCS: 99211

== ENCOUNTER 2018-08-17 11:32 | Inpatient (IN) | payer MEDICARE, OTHER ==
--- NOTE | 2018-08-17 07:59 | P.GSHP ---
History of Present Illness H&P Date: 08/17/18 DATE OF SERVICE: 08/17/2018 CHIEF COMPLAINT: Gastric gastric fistula HISTORY OF PRESENT ILLNESS: Darion Dickerson is a 52-year-old gentleman who is status post Tj-en-Y gastric bypass from January 2013. He is 6 years out. His highest weight for his 5 foot 7 frame was 429 pounds. Today he comes in weighing 259 pounds. He has maintained over 165 pound weight loss. Percent excess weight loss is over 61%. His body mass index has been reduced from 67.3 down to 40.7. 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 He reports epigastric abdominal pain as a result. He has history of severe intra-abdominal adhesions. PAST MEDICAL HISTORY: 1. Morbid obesity, BMI 67.3, initial 2. Depression. 3. Osteoarthritis. 4. Hypothyroidism. 5. Gastroesophageal reflux disease, resolved. 6. Cataracts. 7. Carpal tunnel syndrome. 8. Obstructive sleep apnea, resolved. 9. Diabetes type 2, resolved. 10. Anxiety disorder. 11. Dyslipidemia, resolved. PAST SURGICAL HISTORY: 1. Open Tj-en-Y gastric bypass. 2. Bilateral ACL repair. 3. Upper endoscopy. 4. Bilateral carpal tunnel release. 5. Bilateral cataract extraction. 6. Drainage of subcutaneous abdominal abscess. 7. Laparoscopic cholecystectomy. 8. Panniculectomy. 9. Lysis of adhesions MEDICATIONS: 1. Wellbutrin. 2. Vitamin D. 3. Saphris. 4. Vitamin A. 5. Synthroid. 6. Probiotic. 7. Prozac. 8. MiraLax. 9. Multivitamin. 10. Vitamin E 11. Prilosec 12. Calcium ALLERGIES: PENICILLIN. SOCIAL HISTORY: He has discontinued tobacco use. FAMILY HISTORY: Pertinent for morbid obesity including diabetes and obstructive sleep apnea. REVIEW OF SYSTEMS: CONSTITUTIONAL: His highest weight for his 5 foot 7 frame was 429 pounds. His body mass index was 67.3. ENDOCRINE: Complete resolution of insulin-dependent diabetes. History of hypothyroidism. GASTROINTESTINAL: Resolution of constipation with probiotics. New reports of gastroesophageal reflux disease. HEENT: Wears glasses. No troubles with hearing. PSYCH: History of depression including prior psychosis, now well controlled with medications. CARDIOVASCULAR: No recent heart attack or chest pain. RESPIRATORY: No active sleep apnea. No reports of asthma. MUSCULOSKELETAL: Improvement of osteoarthritis of the joints. NEUROLOGIC: Denies any headache or seizure disorders. HEMATOLOGIC: Denies any easy bruising or bleeding. SKIN: Resolved panniculitis. No skin cancer. PHYSICAL EXAM: VITAL SIGNS: 5 feet 7 inches; 259 pounds. Body mass index 40.7 ABDOMEN: Soft. Nondistended. Nontender. GENERAL: Well-developed male in no acute distress. HEENT: No sclera icterus. Extraocular movements grossly intact. Moist buccal mucosa. Head is atraumatic, normocephalic. Hears conversational speech. No nasal drainage. NECK: Supple without lymphadenopathy. No JV distention. CHEST: Non-labored respirations and equal bilateral excursions. CARDIOVASCULAR: Regular rate and rhythm. Palpable 2+ radial pulses. MUSCULOSKELETAL: No clubbing, cyanosis or edema. NEUROLOGIC: No focal or lateralizing signs. Cranial 2 through 12 intact. PSYCH: Appropriate affect. Alert and oriented to person, place and time. SKIN: Well perfused. Good skin turgor. ASSESSMENT: 1. Morbid obesity due to excess caloric intake 2. Body mass index reduced from 67.2 down to 40.7 3. Status post massive weight loss, 165 pounds. 4. Epigastric abdominal pain 5. Complications from bariatric procedure 6. Peritoneal adhesions 7. Bipolar disorder. 8. Gastric gastric fistula PLAN: 1. He has an anomaly of his gastric bypass with gastric gastric fistula which requires revision of his gastrojejunal anastomosis. 2. Surgical intervention with robotic-assisted takedown of gastrojejunal anastomosis was described. With his history of adhesions, procedure may need at least 4 hours. 3. DVT prophylaxis. 4. Antibiotic prophylaxis. 5. Inpatient hospitalization anticipated more than 2 nights. Past Medical History Past Medical History: GERD/Reflux, Myocardial Infarction ([place]), Osteoarthritis ( OA), Thyroid Disorder Additional Past Medical History / Comment(s): Sinus Problems. Hx of an Eating Disorder, no current issues. "mild heart attack 3 yrs ago, no problems since." Last Myocardial Infarction Date:: 2011 History of Any Multi-Drug Resistant Organisms: MRSA Date of last positivie culture/infection: 2012 MDRO Source:: wound on stomach Past Surgical History: Bariatric Surgery, Cholecystectomy, Orthopedic Surgery Additional Past Surgical History / Comment(s): Bilateral Carpal Tunnel, Left Foot Surgery, Left Knee ACL, gastric bypass 02/02/2016, elbow surgery bilateral, panniculectomy, lysis of abdominal adhesions 01/2018 Past Anesthesia/Blood Transfusion Reactions: Previous Problems w/ Anesthesia, Motion Sickness Additional Past Anesthesia/Blood Transfusion Reaction / Comment(s): Difficult to rouse after administration of anesthesia, difficulty w/urination after having catheter Smoking Status: Former smoker - Past Family History Sister(s) Family Medical History: Deep Vein Thrombosis (DVT) Medications and Allergies Home Medications Medication Instructions Recorded Confirmed Type Calcium Citrate/Vitamin D3 3 tab PO DAILY 11/10/13 08/07/18 History [Calcium Citrate - Vit D3 Tab] FLUoxetine HCL [PROzac] 80 mg PO QAM 01/19/14 08/07/18 History Asenapine Maleate [Saphris] 15 mg SL HS 10/24/14 08/07/18 History Multivitamin [Men's Multi-Vitamin] 1 tab PO DAILY 10/24/14 08/07/18 History Vitamin A 8,000 unit PO DAILY 10/24/14 08/07/18 History Cholecalciferol [Vitamin D3] 1,000 unit PO DAILY 01/12/15 08/07/18 History buPROPion XL [Wellbutrin XL] 450 mg PO QAM 01/20/15 08/07/18 History Vitamin E (Dl,Tocopheryl Acet) 400 unit PO DAILY 04/17/17 08/07/18 History [Vitamin E] Levothyroxine Sodium [Synthroid] 100 mcg PO DAILY #30 tab 02/04/18 08/07/18 Rx Omeprazole 40 mg PO DAILY #90 capsule. 03/25/18 08/07/18 Rx Polyethylene Glycol 3350 [Miralax] 17 gm PO DAILY #765 packet 07/29/18 08/07/18 Rx Ferrous Sulfate [Feosol] 325 mg PO DAILY 08/07/18 08/07/18 History Fluticasone Propionate [Flovent 50 mcg INHALATION BID PRN 08/07/18 08/07/18 History Diskus] Gabapentin [Neurontin] 300 mg PO AC-LUNCH 08/07/18 08/07/18 History Gabapentin [Neurontin] 600 mg PO HS 08/07/18 08/07/18 History Gabapentin [Neurontin] 600 mg PO QAM 08/07/18 08/07/18 History Allergies Allergy/AdvReac Type Severity Reaction Status Date / Time Penicillins Allergy Rash/Hives Verified 08/07/18 12:05
[~2018-08-17 11:32] MED LIST changes: -HYDROmorphone 0.5 MG/0.5 ML SYRINGE IVP PRN; -LACTATED RINGERS 1,000 ML IV SCH; +LIDOCAINE 1% 20 ML VIAL (10MG/ML) FOR IV START INTRADERMA PRN; +MIDAZOLAM (PF) 2 MG/2 ML VIAL IV PRN; -ONDANSETRON 4 MG/2 ML VIAL IVP ONE; +fentaNYL (PF) 50 MCG/ML 2 ML AMP IV PRN
[2018-08-17] MEDS: LACTATED RINGERS 1,000 ML IV SCH (12:08)
[2018-08-17] MEDS ORDERED: SUCCINYLCHOLINE CHLORIDE VIAL 200 MG/10 ML VIAL IV ONE (14:30)
[2018-08-17] MEDS ORDERED: LIDOCAINE 1% INJ 10MG/ML (20 ML MDV) ONE (14:30)
[2018-08-17] MEDS ORDERED: PROPOFOL 10 MG/ML 20 ML VIAL IV ONE (14:30)
[2018-08-17] MEDS ORDERED: NEOSTIGMINE 1 MG/ML 10 ML VIAL ONE (14:30)
[2018-08-17] MEDS ORDERED: GLYCOPYRROLATE 0.2 MG/ML 2 ML VIAL ONE (14:30)
[2018-08-17] MEDS ORDERED: MIDAZOLAM 2 MG/2 ML VIAL ONE (14:30)
[2018-08-17] MEDS ORDERED: ROCURONIUM BROMIDE 10 MG/ML 10 ML VIAL IV ONE (14:30)
[2018-08-17] MEDS ORDERED: fentaNYL (PF) 50 MCG/ML 2 ML AMP ONE (14:30)
[2018-08-17] MEDS ORDERED: BUPIVACAIN-EPI 0.25%-1:200,000 30 ML VIAL SQ ONE (15:11)
[2018-08-17] MEDS ORDERED: LACTATED RINGERS 1,000 ML IV ONE ×2 (16:09)
[2018-08-17] MEDS ORDERED: ACETAMINOPHEN IV (For NPO) 1,000 MG in EMPTY BAG 1 BAG IVPB ONE (16:27)
[2018-08-17] MEDS ORDERED: diphenhydrAMINE 50 MG/ML 1 ML VIAL IVP PRN (16:27)
[2018-08-17] MEDS ORDERED: ONDANSETRON 4 MG/2 ML VIAL IVP PRN (16:27)
[2018-08-17] MEDS ORDERED: NALOXONE 0.4 MG/ML 1 ML VIAL IV PRN (16:27)
[2018-08-17] MEDS ORDERED: HYDROcodone/APAP 15 ML SOLUTION PO PRN (16:27)
[2018-08-17] MEDS ORDERED: HYDROmorphone 1 MG/ML 1 ML SYRINGE IVP PRN (16:27)
[2018-08-17] MEDS ORDERED: FLUTICASONE 44 MCG INHALER INHALATION PRN (16:33)
[2018-08-17] MEDS ORDERED: TAMSULOSIN 0.4 MG CAP.ER.24H PO STA (17:13)
--- NOTE | 2018-08-17 17:13 | P.OP ---
Date of Procedure: 08/17/18 Description of Procedure: SURGEON: PHYLICIA BECK MD PREOPERATIVE DIAGNOSES: 1. Gastrojejunal anomaly 2. Body mass index reduced from 67.2 down to 40.7 3. Status post massive weight loss, 170 pounds. 4. Epigastric abdominal pain 5. Complications from bariatric procedure 6. Peritoneal adhesions 7. Morbid obesity due to excess caloric intake 8. Bipolar disorder. 9. History of gastric bypass POSTOPERATIVE DIAGNOSES: 1. Gastrojejunal anomaly 2. Body mass index reduced from 67.2 down to 40.7 3. Status post massive weight loss, 170 pounds. 4. Epigastric abdominal pain 5. Complications from bariatric procedure 6. Severe malignant peritoneal adhesions 7. Morbid obesity due to excess caloric intake 8. Bipolar disorder. 9. History of gastric bypass OPERATION: 1. Robotic-assisted da Sandra Xi laparoscopic revision of gastrojejunal anastomosis abandoned due to malignant and severe peritoneal adhesions 2. Robotic-assisted da Sandra Xi diagnostic laparoscopy ESTIMATED BLOOD LOSS: 2 mL. SPECIMENS REMOVED: None COMPLICATIONS: None. OPERATIVE FINDINGS: 1. Recurrent severe malignant peritoneal adhesions involving transverse colon and small bowel to abdominal wall prohibiting entry and view of epigastrium and midline INDICATIONS: The patient is a 52-year-old male who presents with epigastric abdominal pain and anomaly of his gastrojejunal anastomosis following 7 years from his gastric bypass. Surgical intervention with robotic assisted laparoscopic approach was described for revision of his gastrojejunal anastomosis. Benefits and risks of the procedure including but not limited to bleeding, infection, incomplete surgery, and injury to the bowel was described. Informed consent was obtained. DESCRIPTION OF PROCEDURE: Patient was brought to the operating room, placed in supine position. After general induction, the abdomen was prepped and draped in standard sterile fashion. Ioban draping was placed along the abdomen. The robotic da Sandra Xi system was prepped and primed. The umbilicus was absent due to previous abdominoplasty. The thoracic cage was tight and short with xiphoid to hips of less than 15 cm, only 13-cm. Incisions were proposed at 13 cm from the xiphoid. Proposed port sites were marked with indelible marker along the anterior axillary line bilaterally, mid clavicular line bilaterally with each port marked 9 cm from each other. The robotic stapler port was marked for the right midclavicular line including along the left midclavicular line. A 5 mm 0 degrees laparoscopic trocar entry was performed along the left upper quadrant. The abdomen was insufflated to 15 mmHg pressure, which he tolerated well. Diagnostic laparoscopy demonstrated no injury to bowel, viscera, or mesentery. The view of the midline and epigastrium was completely obscured by abdominal wall adhesions involving transverse colon including small bowel plastered to the abdominal wall. The lower pelvis was relatively clear from previous adhesional lysis. Next, the camera was carefully navigated from the left abdominal wall to the right abdominal wall for anticipated placement of 8 mm trochars. An 8 mm trochar was placed under direct visualization along the right upper quadrant after placing a separate 8 mm port was placed along the left lateral abdominal wall also under direct visualization. The entire midline and epigastrium was scarred with intestine prohibiting any further placement of trochars or adjustment of camera or instruments into the upper abdomen. With these findings, he is at high risk for bowel perforation including proceeding any further with this case. As a result, I abandoned revision of his gastrojejunal anastomosis due to severe malignant and recurrent peritoneal adhesions which completely obscured the operative field. Additionally, full pneumoperitoneum could not be obtained from his previous abdominoplasty also inhibiting and limiting view of his abdomen. The robot was undocked. All pneumoperitoneum instruments were evacuated from the abdominal cavity. The incisions were reapproximated using 4-0 Monocryl in a subcuticular fashion. Please note along the trocar sites, local anesthetic was placed as a field block prior to insertion of all instruments. Exofin was applied to the skin. At the end of the procedure needle, sponge, and instrument count had been verified correct by the surgical sales representative. The patient was transferred to postanesthesia care unit in stable condition. I discussed the operative findings with the patient's family including the patient. He is at high-risk for any future abdominal surgery secondary to severe and malignant peritoneal adhesions. Any future surgery will have to be done on an emergency basis given his high risks.
[2018-08-17 17:32] VITALS: BMI 38.2
--- NOTE | 2018-08-17 18:06 | P.PN ---
Progress Note - Text Progress Note Date: 08/17/18 Patient seen and evaluated. Patient has pre-existing history of obstructive uropathy following surgery. Flomax started with removal of rosas in the morning. Pain is controlled. Home medications including Saphris for bipolar disorder also started. Intraoperative findings thoroughly discussed and reviewed with patient and family.
[2018-08-17] MEDS: SIMETHICONE 40 MG/0.6 ML DROPS 2,000 MG/30 ML BOTTLE PO SCH ×2 (19:54→23:50)
[2018-08-17] MEDS: GABAPENTIN 300 MG CAP PO SCH (20:17)
[2018-08-17] MEDS ORDERED: ASENAPINE 5 MG TAB SUBLINGUAL SCH (21:00)
[2018-08-17] MEDS: 0.9% NACL WITH KCL 20 MEQ/L 1,000 ML IV SCH (23:50)
[2018-08-18] MEDS: ceFAZolin IN SWFI 2 GM/20 ML SYRINGE IVP SCH ×2 (00:06→08:27)
[2018-08-18] MEDS: 0.9% NACL WITH KCL 20 MEQ/L 1,000 ML IV SCH ×4 (01:42→12:03)
[2018-08-18] MEDS: SIMETHICONE 40 MG/0.6 ML DROPS 2,000 MG/30 ML BOTTLE PO SCH ×3 (05:26→14:40)
[2018-08-18] MEDS ORDERED: LEVOTHYROXINE 100 MCG TAB PO SCH (06:30)
[2018-08-18 08:18] VITALS: RESP 17
[2018-08-18] MEDS: GABAPENTIN 300 MG CAP PO SCH (08:27)
[2018-08-18] MEDS ORDERED: TAMSULOSIN 0.4 MG CAP.ER.24H PO SCH (08:30)
[2018-08-18] MEDS ORDERED: ENOXAPARIN 40 MG/0.4 ML SYRINGE SQ SCH (09:00)
[2018-08-18] MEDS ORDERED: FLUoxetine HCL 20 MG CAP PO SCH (09:00)
[2018-08-18] MEDS ORDERED: buPROPion XL 150 MG TAB.ER.24H PO SCH (09:00)
[2018-08-18] MEDS ORDERED: PANTOPRAZOLE 40 MG/10 ML VIAL IV SCH (09:00)
[2018-08-18] MEDS ORDERED: GABAPENTIN 300 MG CAP PO SCH (12:30)
[2018-08-18] MEDS ORDERED: TAMSULOSIN 0.4 MG CAP.ER.24H PO STA (14:29)
--- NOTE | 2018-08-18 14:37 | P.PN ---
Subjective Progress Note Date: 08/18/18 CHIEF COMPLAINT: abdominal pain HISTORY OF PRESENT ILLNESS: 52-year-old male with history of Tj-en-Y gastric bypass in January 2013. 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 Patient has been experiencing epigastric abdominal pain as a result. Patient presented to the hospital for revision of gastrojejunal anastomosis. He was found to have severe peritoneal adhesions and revision was aborted. Patient has a history of pre-existing obstructive uropathy. Patients rosas was discontinued this morning. Patient was able to void this morning. However PVR has been near 500. He was str aight cath x 1 today. He has been started on Flomax. Patient denies pain at this time. Tolerating diet. Vital signs are stable. PHYSICAL EXAM: VITAL SIGNS: Currently stable. GENERAL: Well-developed in no acute distress. HEENT: No sclera icterus. Extraocular movements grossly intact. Moist buccal mucosa. Head is atraumatic, normocephalic. Hears conversational speech. No nasal pete inage. NECK: Supple without lymphadenopathy. CHEST: Non-labored respirations and equal bilateral excursions. CARDIOVASCULAR: Regular rate with regular rhythm. Palpable 2+ radial pulses. ABDOMEN: Soft. Nondistended. Surgical incision sites are clean dry and without drainage. MUSCULOSKELETAL: No clubbing, cyanosis or edema. NEUROLOGIC: No focal or lateralizing signs. Cranial nerves II through XII grossly intact. PSYCH: Appropriate affect. Alert and oriented to person, place and time. SKIN: Well perfused. Good skin turgor. ASSESSMENT: 1. Gastrojejunal anomaly 2. Body mass index reduced from 67.2 down to 40.7 3. Status post massive weight loss, 170 pounds. 4. Epigastric abdominal pain 5. Complications from bariatric procedure 6. Severe malignant peritoneal adhesions 7. Morbid obesity due to excess caloric intake 8. Bipolar disorder. 9. History of gastric bypass 10. Pre-existing obstructive uropathy PLAN: 1. Give additional dose of Flomax x 1 2. Consult urology for evaluation 3. Patient will require rosas catheter to be re-inserted. Place after urology evaluation. 4. If patient is evaluated this evening by urology and cleared from their standpoint, patient may be discharged home 5. Patient is to follow up with Dr. Sexton on and will have rosas removed at that time. Nurse practitioner note has been reviewed by physician. Signing provider agrees with the documented findings, assessment, and plan of care. Objective - Vital Signs Vital signs: Vital Signs Temp 97.7 F 08/18/18 08:17 Pulse 58 L 08/18/18 08:17 Resp 17 08/18/18 08:17 BP 115/69 08/18/18 08:17 Pulse Ox 99 08/18/18 08:51 Intake & Output 08/17/18 08/18/18 08/18/18 18:59 06:59 18:59 Intake Total 1675 240 Output Total 202 2150 950 Balance 1473 -1910 -950 Intake: IV 1675 Oral 240 Output: Urine 200 2150 950 Straight 550 Estimated Blood Loss 2 Other: Voiding Method Indwelling Catheter Indwelling Catheter Assessment and Plan (1) Gastrojejunal ulcer Current Visit: Yes Status: Acute Code(s): K28.9 - GASTROJEJUNAL ULCER, UNSP ACUTE OR CHR, W/O HEMOR OR PERF SNOMED Code(s): 95277214 (2) BMI 39.0-39.9,adult Current Visit: No Status: Acute Code(s): Z68.39 - BODY MASS INDEX (BMI) 39.0-39.9, ADULT SNOMED Code(s): 483985415 (3) Gastrogastric fistula Current Visit: No Status: Acute Code(s): K31.6 - FISTULA OF STOMACH AND DUODENUM SNOMED Code(s): 928588691 (4) Morbid obesity due to excess calories Current Visit: No Status: Acute Code(s): E66.01 - MORBID (SEVERE) OBESITY DUE TO EXCESS CALORIES SNOMED Code(s): 428158204 (5) Peritoneal adhesions Current Visit: No Status: Acute Code(s): K66.0 - PERITONEAL ADHESIONS (POSTPROCEDURAL) (POSTINFECTION) SNOMED Code(s): 43306923 (6) Status post panniculectomy Current Visit: No Status: Acute Code(s): Z98.89 - OTHER SPECIFIED POSTPROCEDURAL STATES * DO NOT USE * SNOMED Code(s): 858631927 (7) Excessive weight loss Current Visit: No Status: Chronic Code(s): R63.4 - ABNORMAL WEIGHT LOSS SNOMED Code(s): 156021616
[2018-08-18 14:52] VITALS: BP 109/71; PULSE 62; TEMP 98.2
--- NOTE | 2018-08-18 15:42 | P.GSCN ---
History of Present Illness Consult date: 08/18/18 History of present illness: I was asked to see this 52-year-old gentleman for postoperative urinary retention. This patient underwent abdominal exploration with lysis of adhesions. He underwent a Tj-en-Y gastric bypass several years ago and was to have a revision. He has had straight catheterizations postoperatively. He has voided very little. He was just placed on Flomax. He states that he has had problems urinating prior to hospitalization. He is cared for in [facility] his primary care limited is over their up. The doctor has not placed him on any alpha blockers. He had problems with urine retention after his previous surgery several years ago. He has not had a recurrent infections incontinence hematuria. He does not have major bowel problems. Review of Systems All systems: negative Past Medical History Past Medical History: GERD/Reflux, Myocardial Infarction ([place]), Osteoarthritis ( OA), Thyroid Disorder Additional Past Medical History / Comment(s): Sinus Problems. Hx of an Eating Disorder, no current issues. "mild heart attack 3 yrs ago, no problems since." Last Myocardial Infarction Date:: 2011 History of Any Multi-Drug Resistant Organisms: MRSA Year Discovered:: 2013 MDRO Source:: wound on stomach Past Surgical History: Bariatric Surgery, Cholecystectomy, Orthopedic Surgery Additional Past Surgical History / Comment(s): Bilateral Carpal Tunnel, Left Foot Surgery, Left Knee ACL, gastric bypass 02/02/2016, elbow surgery bilateral, panniculectomy, lysis of abdominal adhesions 01/2018 Past Anesthesia/Blood Transfusion Reactions: Previous Problems w/ Anesthesia, Motion Sickness Additional Past Anesthesia/Blood Transfusion Reaction / Comm: Difficult to rouse after administration of anesthesia, difficulty w/urination after having catheter Past Psychological History: Anxiety, Depression, Schizoaffective Disorder Smoking Status: Former smoker Past Alcohol Use History: None Reported Additional Past Alcohol Use History / Comment(s): quit smoking 4 1/2 yrs ago, <1 /2 ppd Past Drug Use History: None Reported - Past Family History Sister(s) Family Medical History: Deep Vein Thrombosis (DVT) Medications and Allergies Home Medications Medication Instructions Recorded Confirmed Type Calcium Citrate/Vitamin D3 3 tab PO DAILY 11/10/13 08/17/18 History [Calcium Citrate - Vit D3 Tab] FLUoxetine HCL [PROzac] 80 mg PO QAM 01/19/14 08/17/18 History Asenapine Maleate [Saphris] 15 mg SL HS 10/24/14 08/17/18 History Multivitamin [Men's Multi-Vitamin] 1 tab PO DAILY 10/24/14 08/17/18 History Vitamin A 8,000 unit PO DAILY 10/24/14 08/17/18 History Cholecalciferol [Vitamin D3] 1,000 unit PO DAILY 01/12/15 08/17/18 History buPROPion XL [Wellbutrin XL] 450 mg PO QAM 01/20/15 08/17/18 History Vitamin E (Dl,Tocopheryl Acet) 400 unit PO DAILY 04/17/17 08/17/18 History [Vitamin E] Levothyroxine Sodium [Synthroid] 100 mcg PO DAILY #30 tab 02/04/18 08/17/18 Rx Omeprazole 40 mg PO DAILY #90 capsule. 03/25/18 08/17/18 Rx Polyethylene Glycol 3350 [Miralax] 17 gm PO DAILY #765 packet 07/29/18 08/17/18 Rx Ferrous Sulfate [Iron (65 MG 325 mg PO DAILY 08/07/18 08/17/18 History Elemental)] Fluticasone Propionate [Flovent 1 puff INHALATION RT-BID PRN 08/07/18 08/17/18 History Diskus] Gabapentin [Neurontin] 300 mg PO AC-LUNCH 08/07/18 08/17/18 History Gabapentin [Neurontin] 600 mg PO BID 08/07/18 08/17/18 History HYDROcodone/APAP [[place] Elixir 15 ml PO Q6HR PRN 3 Days #180 ml 08/18/18 Rx 7.5-325Mg/15Ml] Tamsulosin [Flomax] 0.4 mg PO DAILY #7 cap 08/18/18 Rx Allergies Allergy/AdvReac Type Severity Reaction Status Date / Time Penicillins Allergy Rash/Hives Verified 08/17/18 16:22 Surgical - Exam Vital Signs Temp Pulse Resp BP Pulse Ox 97.7 F 82 16 121/74 95 08/17/18 11:54 08/17/18 11:54 08/17/18 11:54 08/17/18 11:54 08/17/18 11:54 - General well developed, well nourished, no distress - Eyes PERRL - ENT no hearing loss - Neck trachea midline - Respiratory normal expansion, normal respiratory effort - Cardiovascular Rhythm: regular - Abdomen Abdomen: soft, non tender - Genitourinary prostate is 30 g soft and benign normal penis with no external lesions, testicles present - Rectum Rectum: normal sphincter tone - Integumentary no rash, no growths - Neurologic normal coordination, normal sensation - Musculoskeletal normal gait, normal posture - Psychiatric oriented to time, oriented to person, oriented to place, speech is normal, memory intact Assessment and Plan Assessment: impression: Postoperative urinary retention. Preoperative BPH with obstruction. GI problems and other medical problems as outlined in history and physical Recommendations: The patient can go home to [facility] with an indwelling catheter. Apparently is going to return later this week at which time Dr. Irizarry may remove the catheter. He should remain on the Flomax at least until then and my recommendation will be to continue on the Flomax after that. If he continues to have problems he probably should have urologic consultation and [facility].
[2018-08-19] MEDS ORDERED: BISACODYL 5 MG TABLET.DR PO PRN (08:00)
--- NOTE | 2018-08-19 14:46 | P.DS ---
Providers Date of admission: 08/17/18 11:32 Expected date of discharge: 08/18/18 Attending physician: Lisseth Sexton Primary care physician: Stated None Hospital Course: 52-year-old male with history of Tj-en-Y gastric bypass in January 2013. 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 Patient has been experiencing epigastric abdominal pain as a result. Patient presented to the hospital for revision of gastrojejunal anastomosis. He was found to have severe peritoneal adhesions and revision was aborted. Patient has been doing well postoperatively. Tolerating PO intake without nausea or vomiting. Patient has a history of pre- existing obstructive uropathy. He was started on Flomax. His urinary catheter was discontinued POD #1. He was able to void but had continued urinary retention with bladder scans over 500cc. Indwelling urinary catheter was reinserted. Urology was consulted and evaluated the patient. He was deemed stable for discharge home. Patient to follow up with urologist near his home in [place]. He will see Dr. Sexton on 08/20/2018 for removal of his rosas catheter. He is stable for discharge home today. Please see EMR for further hospital course details. Discharge Diagnosis: 1. Gastrojejunal anomaly 2. Body mass index reduced from 67.2 down to 40.7 3. Status post massive weight loss, 170 pounds. 4. Epigastric abdominal pain 5. Complications from bariatric procedure 6. Severe malignant peritoneal adhesions 7. Morbid obesity due to excess caloric intake 8. Bipolar disorder. 9. History of gastric bypass 10. Pre-existing obstructive uropathy Nurse practitioner note has been reviewed by physician. Signing provider agrees with the documented findings, assessment, and plan of care. Plan - Discharge Summary Discharge Rx Participant: No New Discharge Prescriptions: New Tamsulosin [Flomax] 0.4 mg PO DAILY #7 cap HYDROcodone/APAP [[place] Elixir 7.5-325Mg/15Ml] 15 ml PO Q6HR PRN 3 Days #180 ml PRN Reason: Pain Continue Calcium Citrate/Vitamin D3 [Calcium Citrate - Vit D3 Tab] 3 tab PO DAILY FLUoxetine HCL [PROzac] 80 mg PO QAM Vitamin A 8,000 unit PO DAILY Asenapine Maleate [Saphris] 15 mg SL HS Multivitamin [Men's Multi-Vitamin] 1 tab PO DAILY Cholecalciferol [Vitamin D3] 1,000 unit PO DAILY buPROPion XL [Wellbutrin XL] 450 mg PO QAM Vitamin E (Dl,Tocopheryl Acet) [Vitamin E] 400 unit PO DAILY Levothyroxine Sodium [Synthroid] 100 mcg PO DAILY #30 tab Omeprazole 40 mg PO DAILY #90 capsule. Polyethylene Glycol 3350 [Miralax] 17 gm PO DAILY #765 packet Gabapentin [Neurontin] 300 mg PO AC-LUNCH Gabapentin [Neurontin] 600 mg PO BID Ferrous Sulfate [Iron (65 MG Elemental)] 325 mg PO DAILY Fluticasone Propionate [Flovent Diskus] 1 puff INHALATION RT-BID PRN PRN Reason: Dyspnea Discharge Medication List Calcium Citrate/Vitamin D3 [Calcium Citrate - Vit D3 Tab] 3 tab PO DAILY 11/10/13 [History] FLUoxetine HCL [PROzac] 80 mg PO QAM 01/19/14 [History] Asenapine Maleate [Saphris] 15 mg SL HS 10/24/14 [History] Multivitamin [Men's Multi-Vitamin] 1 tab PO DAILY 10/24/14 [History] Vitamin A 8,000 unit PO DAILY 10/24/14 [History] Cholecalciferol [Vitamin D3] 1,000 unit PO DAILY 01/12/15 [History] buPROPion XL [Wellbutrin XL] 450 mg PO QAM 01/20/15 [History] Vitamin E (Dl,Tocopheryl Acet) [Vitamin E] 400 unit PO DAILY 04/17/17 [History] Levothyroxine Sodium [Synthroid] 100 mcg PO DAILY #30 tab 02/04/18 [Rx] Omeprazole 40 mg PO DAILY #90 capsule. 03/25/18 [Rx] Polyethylene Glycol 3350 [Miralax] 17 gm PO DAILY #765 packet 07/29/18 [Rx] Ferrous Sulfate [Iron (65 MG Elemental)] 325 mg PO DAILY 08/07/18 [History] Fluticasone Propionate [Flovent Diskus] 1 puff INHALATION RT-BID PRN 08/07/18 [History] Gabapentin [Neurontin] 300 mg PO AC-LUNCH 08/07/18 [History] Gabapentin [Neurontin] 600 mg PO BID 08/07/18 [History] HYDROcodone/APAP [[place] Elixir 7.5-325Mg/15Ml] 15 ml PO Q6HR PRN 3 Days #180 ml 08/18/18 [Rx] Tamsulosin [Flomax] 0.4 mg PO DAILY #7 cap 08/18/18 [Rx] Follow up Appointment(s)/Referral(s): Lisseth Sexton MD [STAFF PHYSICIAN] - 08/20/18 (At bariatric center at 10am) Patient Instructions/Handouts: Rosas Catheter Placement and Care (DC), Urinary Leg Bag (GEN) Activity/Diet/Wound Care/Special Instructions: No driving while taking [place] No lifting over 10 pounds You may shower. No soaking or tub baths Very light activity until you are reevaluated at your follow up appointment with your surgeon Discharge Disposition: HOME SELF-CARE
== END 2018-08-18 17:48 | disposition home or self-care (01) | DRG 357 ==
LOC: 2ORMAIN 11:32 → 4SSUR 16:05
PROVIDERS: ADMIT Surgery Plastic and Reconstructive Surgery; ATTEND Surgery Plastic and Reconstructive Surgery
PROC: 8E0W4CZ Robotic Assisted Procedure of Trunk Region, Percutaneous Endoscopic Approach (ICD-10-PCS; 2018-08-17)
PROC: 0WJG4ZZ Inspection of Peritoneal Cavity, Percutaneous Endoscopic Approach (ICD-10-PCS; principal; 2018-08-17 14:05)
DX: K95.89 Other complications of other bariatric procedure (principal); K31.6 Fistula of stomach and duodenum; N13.8 Other obstructive and reflux uropathy; Z68.41 Body mass index [BMI] 40.0-44.9, adult; E66.01 Morbid (severe) obesity due to excess calories; F25.9 Schizoaffective disorder, unspecified; E03.9 Hypothyroidism, unspecified; E78.5 Hyperlipidemia, unspecified; I25.2 Old myocardial infarction; K28.9 Gastrojejunal ulcer, unspecified as acute or chronic, without hemorrhage or perforation; K66.0 Peritoneal adhesions (postprocedural) (postinfection); N40.1 Benign prostatic hyperplasia with lower urinary tract symptoms; F32.9 Major depressive disorder, single episode, unspecified; F41.9 Anxiety disorder, unspecified; G56.03 Carpal tunnel syndrome, bilateral upper limbs; M19.90 Unspecified osteoarthritis, unspecified site; Z98.42 Cataract extraction status, left eye; Z98.41 Cataract extraction status, right eye; Z96.1 Presence of intraocular lens; Z79.51 Long term (current) use of inhaled steroids; Z79.890 Hormone replacement therapy; Z79.899 Other long term (current) drug therapy; Z87.891 Personal history of nicotine dependence; Z86.14 Personal history of Methicillin resistant Staphylococcus aureus infection; Z88.0 Allergy status to penicillin; Z83.3 Family history of diabetes mellitus; Z82.49 Family history of ischemic heart disease and other diseases of the circulatory system; Z83.49 Family history of other endocrine, nutritional and metabolic diseases; Z83.6 Family history of other diseases of the respiratory system; Z90.49 Acquired absence of other specified parts of digestive tract; Y83.8 Other surgical procedures as the cause of abnormal reaction of the patient, or of later complication, without mention of misadventure at the time of the procedure
CPT/HCPCS: 86850; 86900; 86901; 94760; 94762

== ENCOUNTER → 2018-08-20 | Outpatient (CLI) | payer MEDICARE, OTHER ==
[2018-08-20 12:34] VITALS: BP 125/72; PULSE 64; TEMP 97.7; BMI 39.1
--- NOTE | 2018-08-21 11:48 | P.PN ---
Subjective Progress Note Date: 08/20/18 DATE OF SERVICE: 08/20/2018 CHIEF COMPLAINT: Epigastric abdominal pain. HISTORY OF PRESENT ILLNESS: Darion Dickerson is a 52-year-old gentleman who is status post lysis of adhesions, POD 3. His highest weight for his 5 foot 7 frame was 429 pounds. He is status post lysis of adhesions. Patient presents with history of postoperative uropathy. No fevers or chills. He is tolerating diet. Today he comes in weighing 249 pounds from 259 pounds, 3 weeks ago. He has lost 10 pounds. He has maintained 180 pound weight loss. Percent excess weight loss is 66%. His body mass index has been reduced from 67.3 down to 39.2. PHYSICAL EXAM: VITAL SIGNS: 5 feet 7 inches; 249 pounds. Body mass index 39.2 Vital Signs Temp 97.7 F 08/20/18 12:30 Pulse 64 08/20/18 12:30 Resp BP 125/72 08/20/18 12:30 Pulse Ox ABDOMEN: Soft. Nondistended. Nontender. Incisions are clean, dry and intact. No signs of infection. GENERAL: Well-developed male in no acute distress. HEENT: No sclera icterus. Extraocular movements grossly intact. Moist buccal mucosa. Head is atraumatic, normocephalic. Hears conversational speech. No nasal drainage. NECK: Supple without lymphadenopathy. No JV distention. CHEST: Non-labored respirations and equal bilateral excursions. CARDIOVASCULAR: Regular rate and rhythm. Palpable 2+ radial pulses. MUSCULOSKELETAL: No clubbing, cyanosis or edema. NEUROLOGIC: No focal or lateralizing signs. Cranial 2 through 12 intact. PSYCH: Appropriate affect. Alert and oriented to person, place and time. SKIN: Well perfused. Good skin turgor. : Pearson catheter discontinued. Urine was clear yellow. ASSESSMENT: 1. Morbid obesity due to excess caloric intake 2. Body mass index reduced from 67.2 down to 39.2 3. Status post massive weight loss, 180 pounds. 4. Peritoneal adhesions 5. Pre-existing obstructive uropathy PLAN: 1. Patient will follow-up locally in [place] with local urologist. 2. Otherwise follow-up in the bariatric center in 2 weeks. 3. Return to work forms also completed. Objective - Vital Signs Vital signs: Vital Signs Temp 97.7 F 08/20/18 12:30 Pulse 64 08/20/18 12:30 Resp BP 125/72 08/20/18 12:30 Pulse Ox Intake & Output 08/20/18 08/21/18 08/21/18 18:59 06:59 18:59 Weight 113.398 kg
== END | disposition home or self-care (01) ==
LOC: BARWHC3 09:41
PROVIDERS: ATTEND Surgery Plastic and Reconstructive Surgery
DX: Z09 Encounter for follow-up examination after completed treatment for conditions other than malignant neoplasm (principal); E66.01 Morbid (severe) obesity due to excess calories; K66.0 Peritoneal adhesions (postprocedural) (postinfection); N13.9 Obstructive and reflux uropathy, unspecified; Z68.39 Body mass index [BMI] 39.0-39.9, adult; Z98.890 Other specified postprocedural states
CPT/HCPCS: 99211

== ENCOUNTER → 2018-09-02 | Outpatient (CLI) | payer MEDICARE, OTHER ==
[2018-09-02 15:20] VITALS: BP 128/76; PULSE 70; RESP 16; TEMP 97.9; BMI 39.7
--- NOTE | 2018-09-02 16:33 | P.PN ---
Subjective Progress Note Date: 09/02/18 HPI: He reports GERD. He reports trouble with his thyroid. No abdominal pain. ABDOMEN: Incisions are granulated. ASSESSMENT: 1. GERD PLAN: 1. Re-check TSH and bariatric labs 2. Refill of GERD Objective - Vital Signs Vital signs: Vital Signs Temp 97.9 F 09/02/18 15:17 Pulse 70 09/02/18 15:17 Resp 16 09/02/18 15:17 BP 128/76 09/02/18 15:17 Pulse Ox Intake & Output 09/01/18 09/02/18 09/02/18 18:59 06:59 18:59 Weight 115.212 kg
[2018-09-02 17:28] LABS: HCT 45.8 % (39.0-53.0); HGB 14.2 gm/dL (13.0-17.5); MCH 29.3 pg (25.0-35.0); MCHC 31.1 g/dL (31.0-37.0); MCV 94.3 fL (80.0-100.0); Mean Platelet Volume 7.2; Platelet Count 213 k/uL (150-450); RBC 4.86 m/uL (4.30-5.90); RDW 13.6 % (11.5-15.5); WBC 5.2 k/uL (3.8-10.6)
[2018-09-02 17:35] LABS: Partial Thromboplastin Time 23.6 sec (22.0-30.0); Prothrombin Time 10.7 sec (9.0-12.0)
[2018-09-03 01:22] LABS: Iron Saturation 20.63 (15.00-50.00)
[2018-09-03 01:30] LABS: Vitamin D 25 Hydroxy 29.4 ng/mL (30.0-100.0)
[2018-09-03 01:42] LABS: Folate, Serum 10.6 ng/mL
[2018-09-03 01:47] LABS: Albumin 4.4 g/dL (3.80-4.90); Albumin/Globulin Ratio 2.1 (1.60-3.17); Anion Gap 6.6 mmol/L (4.00-12.00); Calcium 9.4 mg/dL (8.7-10.3); Carbon Dioxide 28.4 mmol/L (21.6-31.8); Globulin 2.1 g/dL (1.6-3.3); LDL Cholesterol,Calculated 75.2 mg/dL (0.0-131.0); Magnesium 1.9 mg/dL (1.5-2.4); Phosphorus 3.8 mg/dL (2.4-5.1); Potassium 4.3 mmol/L (3.5-5.5); Total Bilirubin 0.3 mg/dL (0.3-1.2); Total Protein 6.5 g/dL (6.2-8.2); VLDL Calculation 15.8 mg/dL (5.00-40.00)
[2018-09-03 02:03] LABS: Parathyroid Hormone Intact 119.2 pg/mL (14.0-72.0)
[2018-09-03 02:38] LABS: Hemoglobin A1C 5.4 % (4.0-6.0)
[2018-09-03 14:55] LABS: Zinc, Serum 58 ug/dL (60-130)
[2018-09-04 06:13] LABS: Vitamin A 45 ug/dL (38-106)
[2018-09-04 10:09] LABS: Vit B1(Thiamine) 92 ug/L (38-122)
[2018-09-05 13:22] LABS: Selenium 102 mcg/L (63-160)
== END | disposition home or self-care (01) ==
LOC: BARWHC3 15:14
PROVIDERS: ATTEND Surgery Plastic and Reconstructive Surgery
DX: K21.9 Gastro-esophageal reflux disease without esophagitis (principal); E66.01 Morbid (severe) obesity due to excess calories; E21.1 Secondary hyperparathyroidism, not elsewhere classified; D50.9 Iron deficiency anemia, unspecified; E89.1 Postprocedural hypoinsulinemia; E44.0 Moderate protein-calorie malnutrition; E55.9 Vitamin D deficiency, unspecified; K74.1 Hepatic sclerosis; N19 Unspecified kidney failure; K50.90 Crohn's disease, unspecified, without complications; Z68.39 Body mass index [BMI] 39.0-39.9, adult
CPT/HCPCS: 84255; 84134; 84425; 80061; 80053; 82607; 82728; 82746; 83540; 83550; 83735; 84100; 84443; 84590; 84630; 85027; 85610; 85730; 82306; 83970; 83036; G0463; 99211

== ENCOUNTER → 2019-03-17 | Outpatient (CLI) | payer MEDICARE, OTHER ==
[2019-03-17 17:57] LABS: HCT 45.2 % (39.0-53.0); HGB 14.8 gm/dL (13.0-17.5); MCHC 32.7 g/dL (31.0-37.0); Mean Platelet Volume 7.2; Platelet Count 199 k/uL (150-450); RBC 4.76 m/uL (4.30-5.90); RDW 14.2 % (11.5-15.5); WBC 5.6 k/uL (3.8-10.6)
[2019-03-17 18:08] LABS: Partial Thromboplastin Time 24.6 sec (22.0-30.0); Prothrombin Time 10.8 sec (9.0-12.0)
--- NOTE | 2019-03-17 21:39 | P.PN ---
Subjective Progress Note Date: 03/17/19 DATE OF SERVICE: 03/17/2019 CHIEF COMPLAINT: Follow up gastric bypass HISTORY OF PRESENT ILLNESS: Darion Dickerson is a 53-year-old gentleman who is status post Tj-en-Y gastric bypass from January 2013. He is 6 years out. His highest weight for his 5 foot 7 frame was 429 pounds. He comes in with weight gain of 10 pounds in 7 months. He is snacking and watching TV. No new abdominal pain. Her reporst rare gastroesophageal reflux disease. He has been taking his thyroid concomittant with all his medications. He is also taking iron with his medications. He was 225 now 260 pounds with medications. His highest weight for his 5 foot 7 frame was 429 pounds. Today he comes in weighing 258 pounds from 253 pounds, 7 months ago. He has gained 5 pounds in 7 months. He has maintained 171 pound weight loss. Percent excess weight loss is 63 %. His body mass index has been reduced from 67.3 down to 40.6. PAST MEDICAL HISTORY: 1. Morbid obesity, BMI 67.3, initial 2. Depression. 3. Osteoarthritis. 4. Hypothyroidism. 5. Gastroesophageal reflux disease, resolved. 6. Cataracts. 7. Carpal tunnel syndrome. 8. Obstructive sleep apnea, resolved. 9. Diabetes type 2, resolved. 10. Anxiety disorder. 11. Dyslipidemia, resolved. PAST SURGICAL HISTORY: 1. Open Tj-en-Y gastric bypass. 2. Bilateral ACL repair. 3. Upper endoscopy. 4. Bilateral carpal tunnel release. 5. Bilateral cataract extraction. 6. Drainage of subcutaneous abdominal abscess. 7. Laparoscopic cholecystectomy. 8. Panniculectomy. 9. Lysis of adhesions MEDICATIONS: Home Medications Medication Instructions Recorded Confirmed Calcium Citrate/Vitamin D3 3 tab PO DAILY 11/10/13 04/28/19 [Calcium Citrate - Vit D3 Tab] FLUoxetine HCL [PROzac] 80 mg PO QAM 01/19/14 04/28/19 Asenapine Maleate [Saphris] 15 mg SL HS 10/24/14 04/28/19 Multivitamin [Men's Multi-Vitamin] 1 tab PO DAILY 10/24/14 04/28/19 Vitamin A 8,000 unit PO DAILY 10/24/14 04/28/19 Cholecalciferol [Vitamin D3 (25 1,000 unit PO DAILY 01/12/15 04/28/19 Mcg = 1000 Iu)] buPROPion XL [Wellbutrin XL] 450 mg PO QAM 01/20/15 04/28/19 Vitamin E (Dl,Tocopheryl Acet) 400 unit PO DAILY 04/17/17 04/28/19 [Vitamin E] Ferrous Sulfate [Iron (65 MG 325 mg PO DAILY 08/07/18 04/28/19 Elemental)] Fluticasone Propionate [Flovent 1 puff INHALATION RT-BID PRN 08/07/18 04/28/19 Diskus] Previous Rx's Medication Instructions Recorded Levothyroxine Sodium [Synthroid] 100 mcg PO DAILY #30 tab 02/04/18 Omeprazole 40 mg PO DAILY #90 capsule. 03/25/18 Polyethylene Glycol 3350 [Miralax] 17 gm PO DAILY #765 packet 07/29/18 Tamsulosin [Flomax] 0.4 mg PO DAILY #7 cap 08/18/18 Omeprazole 40 mg PO DAILY #90 capsule. 09/02/18 ALLERGIES: PENICILLIN. SOCIAL HISTORY: He has discontinued tobacco use. FAMILY HISTORY: Pertinent for morbid obesity including diabetes and obstructive sleep apnea. REVIEW OF SYSTEMS: CONSTITUTIONAL: His highest weight for his 5 foot 7 frame was 429 pounds. His body mass index was 67.3. ENDOCRINE: Complete resolution of insulin-dependent diabetes. History of hypothyroidism. GASTROINTESTINAL: Resolution of constipation with probiotics. New reports of gastroesophageal reflux disease. HEENT: Wears glasses. No troubles with hearing. PSYCH: History of depression including prior psychosis, now well controlled with medications. CARDIOVASCULAR: No recent heart attack or chest pain. RESPIRATORY: No active sleep apnea. No reports of asthma. MUSCULOSKELETAL: Improvement of osteoarthritis of the joints. NEUROLOGIC: Denies any headache or seizure disorders. HEMATOLOGIC: Denies any easy bruising or bleeding. SKIN: Resolved panniculitis. No skin cancer. PHYSICAL EXAM: VITAL SIGNS: 5 feet 7 inches; 258 pounds. Body mass index 40.6 Vital Signs Temp 98.1 F 03/17/19 16:30 Pulse 74 03/17/19 16:30 Resp BP 125/86 03/17/19 16:30 Pulse Ox ABDOMEN: Soft. Nondistended. No peritonitis. GENERAL: Well-developed male in no acute distress. HEENT: No sclera icterus. Extraocular movements grossly intact. Moist buccal mucosa. Head is atraumatic, normocephalic. Hears conversational speech. No nasal drainage. NECK: Supple without lymphadenopathy. No JV distention. CHEST: Non-labored respirations and equal bilateral excursions. CARDIOVASCULAR: Regular rate and rhythm. Palpable 2+ radial pulses. MUSCULOSKELETAL: No clubbing, cyanosis or edema. NEUROLOGIC: No focal or lateralizing signs. Cranial 2 through 12 intact. PSYCH: Appropriate affect. Alert and oriented to person, place and time. SKIN: Well perfused. Good skin turgor.. ASSESSMENT: 1. Morbid obesity due to excess caloric intake 2. Body mass index reduced from 67.2 down to 40.6 3. Status post massive weight loss, 171 pounds. 4. Dietary surveillance and counseling PLAN: 1. Recommend food diary journal 2. Education of taking his thyroid medication separate from his other medications described. 3. Follow up in 2 weeks. 4. Recommend bariatric labs. Laboratory Last Values WBC 5.6 k/uL (3.8-10.6) 03/17/19 17:31 RBC 4.76 m/uL (4.30-5.90) 03/17/19 17:31 Hgb 14.8 gm/dL (13.0-17.5) 03/17/19 17:31 Hct 45.2 % (39.0-53.0) 03/17/19 17:31 MCV 95.0 fL (80.0-100.0) 03/17/19 17:31 MCH 31.0 pg (25.0-35.0) 03/17/19 17:31 MCHC 32.7 g/dL (31.0-37.0) 03/17/19 17:31 RDW 14.2 % (11.5-15.5) 03/17/19 17:31 Plt Count 199 k/uL (150-450) 03/17/19 17:31 PT 10.8 sec (9.0-12.0) 03/17/19 17:31 INR 1.0 (<1.2) 03/17/19 17:31 APTT 24.6 sec (22.0-30.0) 03/17/19 17:31 Sodium 141 mmol/L (135-145) 03/17/19 17:31 Potassium 4.2 mmol/L (3.5-5.5) 03/17/19 17:31 Chloride 104 mmol/L (96-109) 03/17/19 17:31 Carbon Dioxide 30.7 mmol/L (21.6-31.8) 03/17/19 17:31 Anion Gap 6.30 mmol/L (4.00-12.00) 03/17/19 17:31 BUN 17.0 mg/dL (9.0-27.0) 03/17/19 17:31 Creatinine 0.8 mg/dL (0.6-1.5) 03/17/19 17:31 Est GFR (CKD-EPI)AfAm 119.9 (60.0-200.0) 03/17/19 17:31 Est GFR (CKD-EPI)NonAf 103.4 (60.0-200.0) 03/17/19 17:31 BUN/Creatinine Ratio 21.25 Ratio (12.00-20.00) H 03/17/19 17:31 Glucose 92 mg/dL (70-110) 03/17/19 17:[address] Glu mg/dL 111 03/17/19 17:31 Hemoglobin A1c 5.5 % (4.0-6.0) 03/17/19 17:31 Calcium 9.2 mg/dL (8.7-10.3) 03/17/19 17:31 Phosphorus 3.7 mg/dL (2.4-5.1) 03/17/19 17:31 Magnesium 1.7 mg/dL (1.5-2.4) 03/17/19 17:31 Iron 97 ug/dL (65-175) 03/17/19 17:31 TIBC 265 ug/dL (228-460) 03/17/19 17:31 Iron Saturation 36.60 (15.00-50.00) 03/17/19 17:31 Ferritin 83.6 ng/mL (22.0-322.0) 03/17/19 17:31 Total Bilirubin 0.7 mg/dL (0.3-1.2) 03/17/19 17:31 AST 37 U/L (14-35) H 03/17/19 17:31 ALT 45 U/L (10-49) 03/17/19 17:31 Alkaline Phosphatase 116 U/L (41-126) 03/17/19 17:31 Total Protein 6.3 g/dL (6.2-8.2) 03/17/19 17:31 Albumin 4.30 g/dL (3.80-4.90) 03/17/19 17:31 Globulin 2.0 g/dL (1.6-3.3) 03/17/19 17:31 Albumin/Globulin Ratio 2.15 g/dL (1.60-3.17) 03/17/19 17:31 Prealbumin 22.0 mg/dL (18.0-42.0) 03/17/19 17:31 Triglycerides 58.0 mg/dL (0.0-149.0) 03/17/19 17:31 Cholesterol 147 mg/dL (0-200) 03/17/19 17:31 LDL Cholesterol, Calc 67.4 mg/dL (0.0-131.0) 03/17/19 17:31 VLDL Cholesterol, Calc 11.60 mg/dL (5.00-40.00) 03/17/19 17:31 HDL Cholesterol 68.0 mg/dL (40.0-60.0) H 03/17/19 17:31 Cholesterol/HDL Ratio 2.16 03/17/19 17:31 Vitamin A 53 ug/dL (38-106) 03/17/19 17:31 Vitamin B1 96 ug/L (38-122) 03/17/19 17:31 Vitamin B12 1404.0 pg/mL (200.0-944.0) H 03/17/19 17:31 Vitamin D 25-Hydroxy 32.8 ng/mL (30.0-100.0) 03/17/19 17:31 Folate 18.7 ng/mL 03/17/19 17:31 TSH 1.410 uIU/mL (0.350-5.500) 03/17/19 17:31 PTH Intact 69.8 pg/mL (14.0-72.0) 03/17/19 17:31 Copper 680 ug/L (665-1480) 03/17/19 17:31 Selenium 107 mcg/L (63-160) 03/17/19 17:31 Zinc 82 ug/dL (60-130) 03/17/19 17:31 Objective - Labs CBC & Chem 7: 03/17/19 17:31 03/17/19 17:31
[2019-03-18 00:39] LABS: African American GFR (CKD) 119.9 (60.0-200.0); Albumin 4.3 g/dL (3.80-4.90); Albumin/Globulin Ratio 2.15 (1.60-3.17); Anion Gap 6.3 mmol/L (4.00-12.00); BUN/Creat Ratio 21.25 Ratio (12.00-20.00); Calcium 9.2 mg/dL (8.7-10.3); Carbon Dioxide 30.7 mmol/L (21.6-31.8); Chol/HDL Ratio 2.16; LDL Cholesterol,Calculated 67.4 mg/dL (0.0-131.0); Magnesium 1.7 mg/dL (1.5-2.4); Non-African American GFR(CKD) 103.4 (60.0-200.0); Phosphorus 3.7 mg/dL (2.4-5.1); Potassium 4.2 mmol/L (3.5-5.5); Total Bilirubin 0.7 mg/dL (0.3-1.2); Total Protein 6.3 g/dL (6.2-8.2); VLDL Calculation 11.6 mg/dL (5.00-40.00)
[2019-03-18 00:45] LABS: Iron Saturation 36.6 (15.00-50.00)
[2019-03-18 00:55] LABS: Ferritin 83.6 ng/mL (22.0-322.0); Vitamin D 25 Hydroxy 32.8 ng/mL (30.0-100.0)
[2019-03-18 01:06] LABS: Folate, Serum 18.7 ng/mL
[2019-03-18 01:13] LABS: Hemoglobin A1C 5.5 % (4.0-6.0)
[2019-03-18 12:41] LABS: Zinc, Serum 82 ug/dL (60-130)
[2019-03-19 07:24] LABS: Vitamin A 53 ug/dL (38-106)
[2019-03-19 08:36] VITALS: BP 125/86; PULSE 74; TEMP 98.1; BMI 44.4
[2019-03-20 13:48] LABS: Vit B1(Thiamine) 96 ug/L (38-122)
[2019-03-23 18:24] LABS: Selenium 107 mcg/L (63-160)
== END | disposition home or self-care (01) ==
LOC: BARWHC3 15:21
PROVIDERS: ATTEND Surgery Plastic and Reconstructive Surgery
DX: Z48.815 Encounter for surgical aftercare following surgery on the digestive system (principal); E66.01 Morbid (severe) obesity due to excess calories; E03.9 Hypothyroidism, unspecified; M19.90 Unspecified osteoarthritis, unspecified site; Z90.49 Acquired absence of other specified parts of digestive tract; Z68.41 Body mass index [BMI] 40.0-44.9, adult; Z83.49 Family history of other endocrine, nutritional and metabolic diseases; Z87.891 Personal history of nicotine dependence; Z98.84 Bariatric surgery status; Z71.3 Dietary counseling and surveillance; Z79.899 Other long term (current) drug therapy; Z79.51 Long term (current) use of inhaled steroids; Z79.890 Hormone replacement therapy; Z88.0 Allergy status to penicillin; E21.1 Secondary hyperparathyroidism, not elsewhere classified; E89.1 Postprocedural hypoinsulinemia; D50.9 Iron deficiency anemia, unspecified; K90.9 Intestinal malabsorption, unspecified; E55.9 Vitamin D deficiency, unspecified; K76.9 Liver disease, unspecified; N19 Unspecified kidney failure; K50.90 Crohn's disease, unspecified, without complications
CPT/HCPCS: 84255; 84134; 84425; 80061; 80053; 82607; 82728; 82525; 82746; 83540; 83550; 83735; 84100; 84443; 84590; 84630; 85027; 85610; 85730; 82306; 83970; 83036; G0463; 99211

== ENCOUNTER → 2019-03-31 | Outpatient (CLI) | payer MEDICARE, OTHER ==
[2019-03-31 16:36] VITALS: BP 135/78; PULSE 69; TEMP 98; BMI 40.2
--- NOTE | 2019-03-31 16:38 | P.PN ---
Subjective Progress Note Date: 03/31/19 DATE OF SERVICE: 03/31/2019 CHIEF COMPLAINT: Follow up gastric bypass HISTORY OF PRESENT ILLNESS: Darion Dickerson is a 53-year-old gentleman who is status post Tj-en-Y gastric bypass from January 2013. He is 6 years out. He comes in with moderate weight re-gain. He is doing well. He is eating moderate salty foods. His highest weight for his 5 foot 7 frame was 429 pounds. Today he comes in weighing 258 pounds from 253 pounds, 7 months ago. He has gained 5 pounds in 7 months. He has maintained 171 pound weight loss. Percent excess weight loss is 63 %. His body mass index has been reduced from 67.3 down to 40.6. PHYSICAL EXAM: VITAL SIGNS: 5 feet 7 inches; 256 pounds. Body mass index 40.3 Vital Signs Temp 98 F 03/31/19 16:34 Pulse 69 03/31/19 16:34 Resp BP 135/78 03/31/19 16:34 Pulse Ox ABDOMEN: Soft. Nondistended. No peritonitis. GENERAL: Well-developed male in no acute distress. HEENT: No sclera icterus. Extraocular movements grossly intact. Moist buccal mucosa. Head is atraumatic, normocephalic. Hears conversational speech. No nasal drainage. NECK: Supple without lymphadenopathy. No JV distention. CHEST: Non-labored respirations and equal bilateral excursions. CARDIOVASCULAR: Regular rate and rhythm. Palpable 2+ radial pulses. MUSCULOSKELETAL: No clubbing, cyanosis or edema. NEUROLOGIC: No focal or lateralizing signs. Cranial 2 through 12 intact. PSYCH: Appropriate affect. Alert and oriented to person, place and time. SKIN: Well perfused. Good skin turgor. LABS: Reviewed. TSH is normal ASSESSMENT: 1. Morbid obesity due to excess caloric intake 2. Body mass index reduced from 67.2 down to 40.6 3. Status post massive weight loss, 171 pounds. 4. Dietary surveillance and counseling PLAN: 1. Menu options reviewed for low carb, high protein meals 2. Follow up in 1 month for dietary journal. 3. Salt restrictions goal under 2400 mg advised 4. Goal protein intake adjusted to 80 grams daily. 5. Carbs adjusted to 100 to 150 g daily or less. Laboratory Last Values WBC 5.6 k/uL (3.8-10.6) 03/17/19 17:31 RBC 4.76 m/uL (4.30-5.90) 03/17/19 17:31 Hgb 14.8 gm/dL (13.0-17.5) 03/17/19 17:31 Hct 45.2 % (39.0-53.0) 03/17/19 17:31 MCV 95.0 fL (80.0-100.0) 03/17/19 17:31 MCH 31.0 pg (25.0-35.0) 03/17/19 17: MCHC 32.7 g/dL (31.0-37.0) 03/17/19 17:31 RDW 14.2 % (11.5-15.5) 03/17/19 17:31 Plt Count 199 k/uL (150-450) 03/17/19 17:31 PT 10.8 sec (9.0-12.0) 03/17/19 17:31 INR 1.0 (<1.2) 03/17/19 17:31 APTT 24.6 sec (22.0-30.0) 03/17/19 17:31 Sodium 141 mmol/L (135-145) 03/17/19 17:31 Potassium 4.2 mmol/L (3.5-5.5) 03/17/19 17:31 Chloride 104 mmol/L (96-109) 03/17/19 17:31 Carbon Dioxide 30.7 mmol/L (21.6-31.8) 03/17/19 17:31 Anion Gap 6.30 mmol/L (4.00-12.00) 03/17/19 17:31 BUN 17.0 mg/dL (9.0-27.0) 03/17/19 17:31 Creatinine 0.8 mg/dL (0.6-1.5) 03/17/19 17:31 Est GFR (CKD-EPI)AfAm 119.9 (60.0-200.0) 03/17/19 17:31 Est GFR (CKD-EPI)NonAf 103.4 (60.0-200.0) 03/17/19 17:31 BUN/Creatinine Ratio 21.25 Ratio (12.00-20.00) H 03/17/19 17:31 Glucose 92 mg/dL (70-110) 03/17/19 17:[address] Glu mg/dL 111 03/17/19 17:31 Hemoglobin A1c 5.5 % (4.0-6.0) 03/17/19 17:31 Calcium 9.2 mg/dL (8.7-10.3) 03/17/19 17:31 Phosphorus 3.7 mg/dL (2.4-5.1) 03/17/19 17:31 Magnesium 1.7 mg/dL (1.5-2.4) 03/17/19 17:31 Iron 97 ug/dL (65-175) 03/17/19 17:31 TIBC 265 ug/dL (228-460) 03/17/19 17:31 Iron Saturation 36.60 (15.00-50.00) 03/17/19 17:31 Ferritin 83.6 ng/mL (22.0-322.0) 03/17/19 17:31 Total Bilirubin 0.7 mg/dL (0.3-1.2) 03/17/19 17:31 AST 37 U/L (14-35) H 03/17/19 17:31 ALT 45 U/L (10-49) 03/17/19 17:31 Alkaline Phosphatase 116 U/L (41-126) 03/17/19 17:31 Total Protein 6.3 g/dL (6.2-8.2) 03/17/19 17:31 Albumin 4.30 g/dL (3.80-4.90) 03/17/19 17:31 Globulin 2.0 g/dL (1.6-3.3) 03/17/19 17:31 Albumin/Globulin Ratio 2.15 g/dL (1.60-3.17) 03/17/19 17:31 Prealbumin 22.0 mg/dL (18.0-42.0) 03/17/19 17:31 Triglycerides 58.0 mg/dL (0.0-149.0) 03/17/19 17:31 Cholesterol 147 mg/dL (0-200) 03/17/19 17:31 LDL Cholesterol, Calc 67.4 mg/dL (0.0-131.0) 03/17/19 17:31 VLDL Cholesterol, Calc 11.60 mg/dL (5.00-40.00) 03/17/19 17:31 HDL Cholesterol 68.0 mg/dL (40.0-60.0) H 03/17/19 17:31 Cholesterol/HDL Ratio 2.16 03/17/19 17:31 Vitamin A 53 ug/dL (38-106) 03/17/19 17:31 Vitamin B1 96 ug/L (38-122) 03/17/19 17:31 Vitamin B12 1404.0 pg/mL (200.0-944.0) H 03/17/19 17:31 Vitamin D 25-Hydroxy 32.8 ng/mL (30.0-100.0) 03/17/19 17:31 Folate 18.7 ng/mL 03/17/19 17:31 TSH 1.410 uIU/mL (0.350-5.500) 03/17/19 17:31 PTH Intact 69.8 pg/mL (14.0-72.0) 03/17/19 17:31 Copper 680 ug/L (665-1480) 03/17/19 17:31 Selenium 107 mcg/L (63-160) 03/17/19 17:31 Zinc 82 ug/dL (60-130) 03/17/19 17:31 Objective - Vital Signs Vital signs: Intake & Output 03/30/19 03/31/19 03/31/19 18:59 06:59 18:59 Weight 116.573 kg
== END | disposition home or self-care (01) ==
LOC: BARWHC3 15:14
PROVIDERS: ATTEND Surgery Plastic and Reconstructive Surgery
DX: Z48.815 Encounter for surgical aftercare following surgery on the digestive system (principal); E66.01 Morbid (severe) obesity due to excess calories; Z68.41 Body mass index [BMI] 40.0-44.9, adult; Z98.84 Bariatric surgery status; Z71.3 Dietary counseling and surveillance
CPT/HCPCS: 99211

== ENCOUNTER → 2019-04-28 | Outpatient (CLI) | payer MEDICARE, OTHER ==
[2019-04-28 13:27] VITALS: BP 116/70; PULSE 54; TEMP 97.9; BMI 40.2
--- NOTE | 2019-04-28 13:33 | P.PN ---
Subjective Progress Note Date: 04/28/19 DATE OF SERVICE: 04/28/2019 CHIEF COMPLAINT: Follow up gastric bypass HISTORY OF PRESENT ILLNESS: Darion Dickerson is a 53-year-old gentleman who is status post Tj-en-Y gastric bypass from January 2013. He is 6 years out. He is doing well. No further reports of trouble with urinating with Flomax. His weight is stable. No abdominal pain. No gastroesophageal reflux disease. He is skipping meals. His highest weight for his 5 foot 7 frame was 429 pounds. Today he comes in weighing 256 pounds unchanged 1 month ago. He has maintained 173 pound weight loss. Percent excess weight loss is 64 %. His body mass index has been reduced from 67.3 down to 40.3. PHYSICAL EXAM: VITAL SIGNS: 5 feet 7 inches; 256 pounds. Body mass index 40.3 Vital Signs Temp 97.9 F 04/28/19 13:25 Pulse 54 L 04/28/19 13:25 Resp BP 116/70 04/28/19 13:25 Pulse Ox ABDOMEN: Soft. Nondistended. No peritonitis. GENERAL: Well-developed male in no acute distress. HEENT: No sclera icterus. Extraocular movements grossly intact. Moist buccal mucosa. Head is atraumatic, normocephalic. Hears conversational speech. No nasal drainage. NECK: Supple without lymphadenopathy. No JV distention. CHEST: Non-labored respirations and equal bilateral excursions. CARDIOVASCULAR: Regular rate and rhythm. Palpable 2+ radial pulses. MUSCULOSKELETAL: No clubbing, cyanosis or edema. NEUROLOGIC: No focal or lateralizing signs. Cranial 2 through 12 intact. PSYCH: Appropriate affect. Alert and oriented to person, place and time. SKIN: Well perfused. Good skin turgor. LABS: Reviewed. Hgb A1c normal. ASSESSMENT: 1. Morbid obesity due to excess caloric intake 2. Body mass index reduced from 67.2 down to 40.3 3. Status post massive weight loss, 171 pounds. 4. Dietary surveillance and counseling PLAN: 1. Recommend do not skip breakfast. 2. Continue with protein intake of 75 grams daily Objective - Vital Signs Vital signs: Vital Signs Temp 97.9 F 04/28/19 13:25 Pulse 54 L 04/28/19 13:25 Resp BP 116/70 04/28/19 13:25 Pulse Ox Intake & Output 04/27/19 04/28/19 04/28/19 18:59 06:59 18:59 Weight 116.573 kg
== END | disposition home or self-care (01) ==
LOC: BARWHC3 12:33
PROVIDERS: ATTEND Surgery Plastic and Reconstructive Surgery
DX: Z48.815 Encounter for surgical aftercare following surgery on the digestive system (principal); E66.01 Morbid (severe) obesity due to excess calories; Z71.3 Dietary counseling and surveillance; Z98.84 Bariatric surgery status; Z68.41 Body mass index [BMI] 40.0-44.9, adult
CPT/HCPCS: 99211

== ENCOUNTER → 2020-07-26 | Outpatient (CLI) | payer MEDICARE, OTHER ==
[2020-07-26 15:20] VITALS: BP 106/66; PULSE 56; RESP 18; TEMP 98.1; BMI 38.8
--- NOTE | 2020-07-26 15:27 | P.PN ---
Subjective Progress Note Date: 07/26/20 DATE OF SERVICE: 07/26/2020 CHIEF COMPLAINT: Follow up gastric bypass HISTORY OF PRESENT ILLNESS: Darion Dickerson is a 54-year-old gentleman who is status post Tj-en-Y gastric bypass from January 2013. He is over 7 years out. He has lost weight over 4 years down to 247 ponds. He reports risk for low iron as he is no longer taking his iron supplements or multivitamins consistently. He is eating junk food. He presents alongside with his . No reports of abdominal pain. He denies gastroesophageal reflux disease. He presents today for nutritional assessment and management of his morbid obesity. He comes in with worsened dietary intake. His highest weight for his 5 foot 7 frame was 429 pounds. Today he comes in weighing 247 pounds from 256 pounds, over 1 year ago. He has lost 9 pounds in over 1 year. He has maintained 182 pound weight loss. Percent excess weight loss is 67 %. His body mass index has been reduced from 67.3 down to 38.8 PAST MEDICAL HISTORY: 1. Morbid obesity, BMI 67.3, initial 2. Depression. 3. Osteoarthritis. 4. Hypothyroidism. 5. Gastroesophageal reflux disease, resolved. 6. Cataracts. 7. Carpal tunnel syndrome. 8. Obstructive sleep apnea, resolved. 9. Diabetes type 2, resolved. 10. Anxiety disorder. 11. Dyslipidemia, resolved. PAST SURGICAL HISTORY: 1. Open Tj-en-Y gastric bypass. 2. Bilateral ACL repair. 3. Upper endoscopy. 4. Bilateral carpal tunnel release. 5. Bilateral cataract extraction. 6. Drainage of subcutaneous abdominal abscess. 7. Laparoscopic cholecystectomy. 8. Panniculectomy. 9. Lysis of adhesions MEDICATIONS: Home Medications Medication Instructions Recorded Confirmed Calcium Citrate/Vitamin D3 3 tab PO DAILY 11/10/13 07/26/20 [Calcium Citrate - Vit D3 Tab] FLUoxetine HCL [PROzac] 80 mg PO QAM 01/19/14 07/26/20 Asenapine Maleate [Saphris] 15 mg SL HS 10/24/14 07/26/20 Multivitamin [Men's Multi-Vitamin] 1 tab PO DAILY 10/24/14 07/26/20 Vitamin A 8,000 unit PO DAILY 10/24/14 07/26/20 Cholecalciferol [Vitamin D3 (25 1,000 unit PO DAILY 01/12/15 07/26/20 Mcg = 1000 Iu)] buPROPion XL [Wellbutrin XL] 450 mg PO QAM 01/20/15 07/26/20 Vitamin E (Dl,Tocopheryl Acet) 400 unit PO DAILY 04/17/17 07/26/20 [Vitamin E] Fluticasone Propionate [Flovent 1 puff INHALATION RT-BID PRN 08/07/18 07/26/20 Diskus] Previous Rx's Medication Instructions Recorded Levothyroxine Sodium [Synthroid] 100 mcg PO DAILY #30 tab 02/04/18 Omeprazole 40 mg PO DAILY #90 capsule. 03/25/18 polyethylene glycoL 3350 [Miralax] 17 gm PO DAILY #765 packet 07/29/18 Tamsulosin [Flomax] 0.4 mg PO DAILY #7 cap 08/18/18 Omeprazole 40 mg PO DAILY #90 capsule. 09/02/18 ALLERGIES: PENICILLIN. SOCIAL HISTORY: Past tobacco use. FAMILY HISTORY: Pertinent for morbid obesity including diabetes and obstructive sleep apnea. REVIEW OF SYSTEMS: CONSTITUTIONAL: His highest weight for his 5 foot 7 frame was 429 pounds. His body mass index was 67.3. ENDOCRINE: Complete resolution of insulin-dependent diabetes. History of hypothyroidism. GASTROINTESTINAL: No blood in stools. Has gastroesophageal reflux disease. HEENT: Wears glasses. No troubles with hearing. PSYCH: History of depression including prior psychosis, now well controlled with medications. CARDIOVASCULAR: Past chest pain. No myocardial infarction. RESPIRATORY: No active sleep apnea. No reports of asthma. MUSCULOSKELETAL: Improvement of osteoarthritis of the joints. NEUROLOGIC: Denies any headache or seizure disorders. HEMATOLOGIC: Denies any easy bruising or bleeding. SKIN: No skin cancer. No rash. PHYSICAL EXAM: VITAL SIGNS: 5 feet 7 inches; 247 pounds. Body mass index 38.8 Vital Signs Temp 98.1 F 07/26/20 15:16 Pulse 56 L 07/26/20 15:16 Resp 18 07/26/20 15:16 BP 106/66 07/26/20 15:16 Pulse Ox ABDOMEN: Soft. Nondistended. GENERAL: Well-developed male in no acute distress. HEENT: No sclera icterus. Extraocular movements grossly intact. Moist buccal mucosa. Head is atraumatic, normocephalic. Hears conversational speech. No nasal drainage. NECK: No JV distention. CHEST: Non-labored respirations and equal bilateral excursions. CARDIOVASCULAR: Regular rate and rhythm. Palpable 2+ radial pulses. MUSCULOSKELETAL: No clubbing, cyanosis or edema. NEUROLOGIC: No focal or lateralizing signs. Cranial 2 through 12 intact. PSYCH: Appropriate affect. Alert and oriented to person, place and time. SKIN: Well perfused. Good skin turgor. ASSESSMENT: 1. Morbid obesity due to excess caloric intake 2. Body mass index reduced from 67.2 down to 38.8 3. Status post massive weight loss, 182 pounds. 4. Dietary surveillance and counseling 5. Depression. 6. Osteoarthritis. 7. Hypothyroidism. 8. Anxiety disorder. PLAN: 1. Recommend bariatric labs 2. Recommend dietitian assessment 3. Recommend food diary journal Objective - Vital Signs Vital signs: Vital Signs Temp 98.1 F 07/26/20 15:16 Pulse 56 L 07/26/20 15:16 Resp 18 07/26/20 15:16 BP 106/66 07/26/20 15:16 Pulse Ox Intake & Output 07/25/20 07/26/20 07/26/20 18:59 06:59 18:59 Weight 112.491 kg - Labs CBC & Chem 7: 07/26/20 15:47 07/26/20 15:47
[2020-07-26 16:35] LABS: HCT 42.4 % (39.0-53.0); HGB 14.4 gm/dL (13.0-17.5); MCH 31.1 pg (25.0-35.0); MCHC 33.9 g/dL (31.0-37.0); MCV 91.7 fL (80.0-100.0); Platelet Count 185 k/uL (150-450); RBC 4.62 m/uL (4.30-5.90); RDW 13.2 % (11.5-15.5); WBC 3.1 k/uL (3.8-10.6)
[2020-07-26 22:49] LABS: INR 1.02 (0.90-1.11); Partial Thromboplastin Time 27.7 sec (23.5-31.0); Prothrombin Time 11.1 sec (9.9-11.9)
[2020-07-27 00:59] LABS: Hemoglobin A1C 5.5 % (4.0-6.0)
[2020-07-27 01:51] LABS: % Iron Saturation 29.79 (15.00-50.00); African American GFR (CKD) 113.4 (60.0-200.0); Albumin 4.4 g/dL (3.80-4.90); Albumin/Globulin Ratio 2.1 (1.60-3.17); Anion Gap 5.2 mmol/L (4.00-12.00); BUN/Creat Ratio 15.56 Ratio (12.00-20.00); Calcium 8.9 mg/dL (8.7-10.3); Carbon Dioxide 30.8 mmol/L (21.6-31.8); Chol/HDL Ratio 2.31; Globulin 2.1 g/dL (1.6-3.3); LDL Cholesterol,Calculated 53.8 mg/dL (0.0-131.0); Magnesium 2.2 mg/dL (1.5-2.4); Non-African American GFR(CKD) 97.9 (60.0-200.0); Phosphorus 3.1 mg/dL (2.4-5.1); Potassium 4.1 mmol/L (3.5-5.5); Total Bilirubin 0.4 mg/dL (0.3-1.2); Total Protein 6.5 g/dL (6.2-8.2); VLDL Calculation 17.2 mg/dL (5.00-40.00)
[2020-07-27 02:00] LABS: Ferritin 196.6 ng/mL (22.0-322.0)
[2020-07-27 02:47] LABS: Folate, Serum 13.7 ng/mL
[2020-07-27 14:20] LABS: Zinc, Serum 55 ug/dL (60-130)
[2020-07-28 07:41] LABS: Vitamin A 31 ug/dL (38-106)
[2020-07-31 10:44] LABS: Selenium 105 mcg/L (63-160)
[2020-07-31 14:02] LABS: Vit B1(Thiamine) 63 ug/L (38-122)
== END | disposition home or self-care (01) ==
LOC: BARWHC3 14:06
PROVIDERS: ATTEND Surgery Plastic and Reconstructive Surgery
DX: E66.01 Morbid (severe) obesity due to excess calories (principal); F32.9 Major depressive disorder, single episode, unspecified; M19.90 Unspecified osteoarthritis, unspecified site; E03.9 Hypothyroidism, unspecified; F41.9 Anxiety disorder, unspecified; Z68.38 Body mass index [BMI] 38.0-38.9, adult; Z71.3 Dietary counseling and surveillance; Z88.0 Allergy status to penicillin; Z79.890 Hormone replacement therapy; Z79.899 Other long term (current) drug therapy; Z79.891 Long term (current) use of opiate analgesic
CPT/HCPCS: 84255; 84134; 84425; 80061; 80053; 82607; 82728; 82525; 82746; 83540; 83550; 83735; 84100; 84443; 84590; 84630; 85027; 85610; 85730; 82306; 83970; 83036; 36415; G0463; 99211

== ENCOUNTER → 2020-12-20 | Outpatient (CLI) | payer MEDICARE, OTHER ==
[2020-12-20 14:03] LABS: HCT 43.3 % (39.0-53.0); HGB 13.9 gm/dL (13.0-17.5); MCH 29.9 pg (25.0-35.0); MCHC 32.2 g/dL (31.0-37.0); Mean Platelet Volume 7.7; Platelet Count 181 k/uL (150-450); RBC 4.65 m/uL (4.30-5.90); RDW 13.9 % (11.5-15.5); WBC 4.8 k/uL (3.8-10.6)
[2020-12-20 14:12] LABS: Prothrombin Time 10.7 sec (9.0-12.0)
--- NOTE | 2020-12-20 15:03 | P.PN ---
Subjective Progress Note Date: 12/20/20 He has gained 20 pounds from 248 pounds. He reports change in his medications causing weight gain. He reports depression from his and social stressors and causing need for more medications and weight gain. Recommend check labs for vitamins. Lysis of adhesions discussed. He take his synthroid appropriately. Recommend re-check TSH and labs. Recommend 2 week protein diet. Objective - Vital Signs Vital signs: Intake & Output 12/19/20 12/20/20 12/20/20 18:59 06:59 18:59 Weight 121.744 kg - Labs CBC & Chem 7: 12/20/20 13:37
[2020-12-20 15:29] VITALS: BP 114/74; PULSE 61; RESP 18; TEMP 97.9; BMI 42.0
[2020-12-20 20:42] LABS: Hemoglobin A1C 5.5 % (4.0-6.0)
[2020-12-20 22:03] LABS: % Iron Saturation 30.77 (15.00-50.00); African American GFR (CKD) 112.6 (60.0-200.0); Albumin 4.2 g/dL (3.80-4.90); Albumin/Globulin Ratio 1.83 (1.60-3.17); Anion Gap 4.1 mmol/L (4.00-12.00); BUN/Creat Ratio 17.78 Ratio (12.00-20.00); Carbon Dioxide 29.9 mmol/L (21.6-31.8); Chol/HDL Ratio 2.07; Globulin 2.3 g/dL (1.6-3.3); LDL Cholesterol,Calculated 49.6 mg/dL (0.0-131.0); Magnesium 1.8 mg/dL (1.5-2.4); Non-African American GFR(CKD) 97.2 (60.0-200.0); Phosphorus 3.5 mg/dL (2.4-5.1); Potassium 4.5 mmol/L (3.5-5.5); Total Bilirubin 0.5 mg/dL (0.3-1.2); Total Protein 6.5 g/dL (6.2-8.2); VLDL Calculation 12.4 mg/dL (5.00-40.00)
[2020-12-20 22:12] LABS: Ferritin 93.5 ng/mL (22.0-322.0)
[2020-12-20 22:53] LABS: Folate, Serum 15.4 ng/mL
[2020-12-21 13:32] LABS: Vitamin A 37 ug/dL (38-106); Zinc, Serum 63 ug/dL (60-130)
[2020-12-22 08:23] LABS: Vit B1(Thiamine) 73 ug/L (38-122)
== END ==
LOC: BARWHC3 13:29
PROVIDERS: ATTEND Surgery Plastic and Reconstructive Surgery
DX: E66.01 Morbid (severe) obesity due to excess calories (principal); E89.1 Postprocedural hypoinsulinemia; D50.8 Other iron deficiency anemias; E44.0 Moderate protein-calorie malnutrition; E55.9 Vitamin D deficiency, unspecified; K74.1 Hepatic sclerosis; N19 Unspecified kidney failure; K50.90 Crohn's disease, unspecified, without complications; Z68.41 Body mass index [BMI] 40.0-44.9, adult; Z88.0 Allergy status to penicillin; Z87.891 Personal history of nicotine dependence
CPT/HCPCS: 84255; 84134; 84425; 80061; 80053; 82607; 82728; 82525; 82746; 83540; 83550; 83735; 84100; 84443; 84590; 84630; 85027; 85610; 85730; 82306; 83970; 83036; G0463; 99211

== ENCOUNTER → 2021-07-18 | Outpatient (CLI) | payer MEDICARE, OTHER ==
[2021-07-18 13:15] VITALS: BP 118/80; PULSE 61; TEMP 97.7; BMI 43.5
--- NOTE | 2021-07-18 13:40 | P.BASOAP ---
Subjective Progress Note Date: 07/18/21 DATE OF SERVICE: 07/18/2021 CHIEF COMPLAINT: Status post gastric bypass HISTORY OF PRESENT ILLNESS: Darion Dickerson is a 55-year-old gentleman who is status post Tj-en-Y gastric bypass from January 2013. He is 9 years out. He has gained 30 pounds in 1 year. He is not getting enough protein and is less than 75 grams daily. 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 He reports abdominal pain along the epigastrium that is crampy in nature. He was in the hospital in January 2021 with no surgery performed at that time. He is bloated. He has intermittent constipation. He eats 2 meals a day. He comes in with abdominal pain with risk for bowel obstruction. His highest weight for his 5 foot 7 frame was 429 pounds. Today he comes in weighing 277 pounds from 268 pounds, over 7 months ago. He has gained 10 pounds in 7 months. He has maintained 151 pound weight loss lifetime. Lifetime percent excess weight loss is 56%. His body mass index has been reduced from 67.3 down to 43.5. PAST MEDICAL HISTORY: 1. Morbid obesity due to excess calories, BMI 67.3, initial 2. Depression. 3. Osteoarthritis. 4. Hypothyroidism. 5. Gastroesophageal reflux disease, resolved. 6. Cataracts. 7. Carpal tunnel syndrome. 8. Obstructive sleep apnea, resolved. 9. Diabetes type 2, resolved. 10. Anxiety disorder. 11. Dyslipidemia, resolved. PAST SURGICAL HISTORY: 1. Open Tj-en-Y gastric bypass. 2. Bilateral ACL repair. 3. Upper endoscopy. 4. Bilateral carpal tunnel release. 5. Bilateral cataract extraction. 6. Drainage of subcutaneous abdominal abscess. 7. Laparoscopic cholecystectomy. 8. Panniculectomy. 9. Lysis of adhesions MEDICATIONS: Home Medications Medication Instructions Recorded Confirmed Calcium Citrate/Vitamin D3 3 tab PO DAILY 11/10/13 09/12/21 [Calcium Citrate - Vit D3 Tab] FLUoxetine HCL [PROzac] 80 mg PO QAM 01/19/14 09/12/21 Multivitamin [Men's Multi-Vitamin] 1 tab PO DAILY 10/24/14 09/12/21 Vitamin A 8,000 unit PO DAILY 10/24/14 09/12/21 Cholecalciferol [Vitamin D3 (25 1,000 unit PO DAILY 01/12/15 09/12/21 Mcg = 1000 Iu)] buPROPion XL [Wellbutrin XL] 450 mg PO QAM 01/20/15 09/12/21 Vitamin E (Dl,Tocopheryl Acet) 400 unit PO DAILY 04/17/17 09/12/21 [Vitamin E (400 Iu = 180 mg)] Fluticasone Propionate [Flovent 1 puff INHALATION RT-BID PRN 08/07/18 09/12/21 Diskus] Levothyroxine Sodium [Synthroid] 50 mcg PO QAM 08/23/21 09/12/21 Ziprasidone [Geodon] 40 mg PO QAM 08/23/21 09/12/21 Ziprasidone [Geodon] 60 mg PO HS 08/23/21 09/12/21 Previous Rx's Medication Instructions Recorded polyethylene glycoL 3350 [Miralax] 17 gm PO DAILY #765 packet 07/29/18 Tamsulosin [Flomax] 0.4 mg PO DAILY #7 cap 08/18/18 Omeprazole [PriLOSEC] 40 mg PO DAILY #90 cap 12/20/20 ALLERGIES: PENICILLIN. SOCIAL HISTORY: Past tobacco use. FAMILY HISTORY: Pertinent for morbid obesity including diabetes and obstructive sleep apnea. REVIEW OF SYSTEMS: CONSTITUTIONAL: His highest weight for his 5 foot 7 frame was 429 pounds. His body mass index was 67.3. ENDOCRINE: Complete resolution of insulin-dependent diabetes. History of hypothyroidism. GASTROINTESTINAL: No blood in stools. Has gastroesophageal reflux disease. HEENT: Wears glasses. No troubles with hearing. PSYCH: History of depression including prior psychosis, now well controlled with medications. CARDIOVASCULAR: Past chest pain. No myocardial infarction. RESPIRATORY: No active sleep apnea. No reports of asthma. MUSCULOSKELETAL: Improvement of osteoarthritis of the joints. NEUROLOGIC: Denies any headache or seizure disorders. HEMATOLOGIC: Denies any easy bruising or bleeding. SKIN: No skin cancer. No rash. PHYSICAL EXAM: VITAL SIGNS: 5 feet 7 inches; 277 pounds. Body mass index 43.5 Vital Signs Temp 97.7 F 07/18/21 13:13 Pulse 61 07/18/21 13:13 Resp BP 118/80 07/18/21 13:13 Pulse Ox ABDOMEN: Soft. Nondistended. GENERAL: Well-developed male in no acute distress. HEENT: No sclera icterus. Extraocular movements grossly intact. Moist buccal mucosa. Head is atraumatic, normocephalic. Hears conversational speech. No nasal drainage. NECK: No JV distention. CHEST: Non-labored respirations and equal bilateral excursions. CARDIOVASCULAR: Regular rate and rhythm. Palpable 2+ radial pulses. MUSCULOSKELETAL: No clubbing, cyanosis or edema. NEUROLOGIC: No focal or lateralizing signs. Cranial 2 through 12 intact. PSYCH: Appropriate affect. Alert and oriented to person, place and time. SKIN: Well perfused. Good skin turgor. LABS: Reviewed. Hgb normal. Hgb A1c 5.5%. Vitamin A low. PTH elevated ASSESSMENT: 1. Morbid obesity due to excess caloric intake 2. Body mass index reduced from 67.2 down to 42.0 3. Status post massive weight loss, 182 pounds. 4. Dietary surveillance and counseling 5. Depression. 6. Osteoarthritis. 7. Hypothyroidism. 8. Anxiety disorder. 9. Weight regain. 10. Secondary hyperparathyroidism 11. Vitamin A deficiency 12. Epigastric pain PLAN: 1. Recommend CT of the abdomen and pelvis for epigastric pain, gastric bypass, and risk for bowel obstruction. 2. Recommend food diary journal, [employer]. 3. Recommend bariatric labs. Objective - Vital Signs Vital signs: Vital Signs Temp 97.7 F 07/18/21 13:13 Pulse 61 07/18/21 13:13 Resp BP 118/80 07/18/21 13:13 Pulse Ox Intake & Output 07/17/21 07/18/21 07/18/21 18:59 06:59 18:59 Weight 126.099 kg - Labs CBC & Chem 7: 07/18/21 14:27 07/18/21 14:27 Assessment/Plan Plan: Date: 07/18/21 Initial Weight: 172.32 kg Initial BMI: 59.5 Current Weight: 126.099 kg Current BMI: 43.5 Type of Surgery: Total Volume in Band: Previous Volume: Volume Removed: Volume Added: Band Size:
[2021-07-18 15:24] LABS: Partial Thromboplastin Time 24.8 sec (22.0-30.0); Prothrombin Time 11.2 sec (9.0-12.0)
[2021-07-18 19:16] LABS: HCT 42.5 % (39.6-50.0); HGB 13.3 g/dL (13.0-17.0); MCH 29.3 pg (27.0-32.0); MCHC 31.3 g/dL (32.0-37.0); MCV 93.6 fL (80.0-97.0); Mean Platelet Volume 10.7 fL (9.5-12.2); NRBC Per 100 WBC 0 /100 WBCS (0.0-0.0); Platelet Count 202 X 10*3/uL (140-440); RBC 4.54 X 10*6/uL (4.40-5.60); RDW 13.7 % (11.5-14.5); WBC 5.29 X 10*3/uL (4.50-10.00)
[2021-07-18 20:46] LABS: % Iron Saturation 33.25 (15.00-50.00); ALT 29 U/L (10-49); AST 28 U/L (14-35); African American GFR (CKD) 114.4 (60.0-200.0); Albumin 4.1 g/dL (3.8-4.9); Albumin/Globulin Ratio 1.97 (1.60-3.17); Alkaline Phosphatase 107 U/L (41-126); BUN/Creat Ratio 20.88 Ratio (12.00-20.00); Blood Urea Nitrogen 18.1 mg/dL (9.0-27.0); Calcium 9.3 mg/dL (8.7-10.3); Carbon Dioxide 25.5 mmol/L (20.0-27.5); Chloride 103 mmol/L (96-109); Ferritin 87.8 ng/mL (22.0-322.0); Globulin 2.1 g/dL (1.6-3.3); Glucose 94 mg/dL (70-110); Iron 101 ug/dL (65-175); Magnesium 1.9 mg/dL (1.5-2.4); Non-African American GFR(CKD) 98.7 (60.0-200.0); Phosphorus 3.5 mg/dL (2.4-5.1); Potassium 4.5 mmol/L (3.5-5.5); Sodium 140 mmol/L (135-145); Total Iron Binding Capacity 304 ug/dL (228-460); Total Protein 6.2 g/dL (6.2-8.2)
[2021-07-18 22:54] LABS: Chol/HDL Ratio 2.39 Ratio; LDL Cholesterol,Calculated 71.1 mg/dL (0.0-131.0); Prealbumin 20.3 mg/dL (18.0-42.0); VLDL Calculation 14.34 mg/dL (5.00-40.00)
[2021-07-20 12:35] LABS: Zinc, Serum 62 ug/dL (60-130)
[2021-07-23 06:50] LABS: Vitamin A 50 ug/dL (38-106)
[2021-07-23 12:39] LABS: Vit B1(Thiamine) 96 ug/L (38-122)
[2021-07-24 08:29] LABS: Selenium 145 mcg/L (63-160)
== END ==
LOC: BARWHC3 12:32
PROVIDERS: ATTEND Surgery Plastic and Reconstructive Surgery
DX: E66.01 Morbid (severe) obesity due to excess calories (principal); Z68.41 Body mass index [BMI] 40.0-44.9, adult; Z71.3 Dietary counseling and surveillance; F32.A Depression, unspecified; E03.9 Hypothyroidism, unspecified; M19.90 Unspecified osteoarthritis, unspecified site; E21.1 Secondary hyperparathyroidism, not elsewhere classified; E50.9 Vitamin A deficiency, unspecified; R10.13 Epigastric pain; Z98.84 Bariatric surgery status; K21.9 Gastro-esophageal reflux disease without esophagitis; E11.9 Type 2 diabetes mellitus without complications; F41.9 Anxiety disorder, unspecified; Z79.890 Hormone replacement therapy; E78.5 Hyperlipidemia, unspecified; Z88.0 Allergy status to penicillin; Z87.891 Personal history of nicotine dependence
CPT/HCPCS: 84255; 84134; 84425; 80061; 80053; 82607; 82728; 82525; 82746; 83540; 83550; 83735; 84100; 84443; 84590; 84630; 85027; 85610; 85730; 82306; 83970; 83036; 36415; G0463; 99211

== ENCOUNTER → 2021-08-23 | Outpatient (CLI) | payer MEDICARE, OTHER ==
--- NOTE | 2021-08-23 13:26 | CT ---
EXAMINATION TYPE: CT abdomen pelvis w con DATE OF EXAM: 08/23/2021 COMPARISON: CT dated 01/21/2018 HISTORY: Diverticulitis CT DLP: 3891 mGycm Automated exposure control for dose reduction was used. TECHNIQUE: Helical acquisition of images was performed from the lung bases through the pelvis. CONTRAST: Performed with Oral Contrast and with IV Contrast, patient injected with 100 mL of Isovue 300. FINDINGS: LUNG BASES: No significant abnormality is appreciated. LIVER/GB: No definite hepatic focal lesion. Previous cholecystectomy. PANCREAS: Severe fatty infiltration of the pancreas. No definite pancreatic lesion. SPLEEN: No significant abnormality is seen. ADRENALS: No significant abnormality is seen. KIDNEYS: Right lower pole 7 mm nonobstructing stone with 11 mm left midpole nonobstructing renal ston e. Unremarkable kidneys otherwise. No hydroureter or hydronephrosis. FREE AIR: No free air is visualized. RETROPERITONEAL ADENOPATHY: None visualized REPRODUCTIVE ORGANS: No significant abnormality is seen URINARY BLADDER: No significant abnormality is seen. PELVIC ADENOPATHY: None visualized. OSSEOUS STRUCTURES: Degenerative changes of the lower thoracic spine. Severe bilateral L5-S1 facet o steoarthropathy with degenerative changes at L4-5 level. No aggressive bone lesion. BOWEL: Previous gastrojejunostomy. No evidence of bowel obstruction. Scattered colonic diverticulosi s without evidence of acute diverticulitis. OTHER: No sizable ascites. Anterior abdominal wall midline scar. Prominent fat is seen between the la yers of the anterior abdominal wall muscles on both sides. IMPRESSION: 1. Colonic diverticulosis without evidence of acute diverticulitis. 2. Bilateral nonobstructing renal calculi. Other incidental findings as described above.
== END | disposition home or self-care (01) ==
LOC: RADCTMAIN 11:17
PROVIDERS: ATTEND Surgery Plastic and Reconstructive Surgery
DX: K57.30 Diverticulosis of large intestine without perforation or abscess without bleeding (principal); N20.0 Calculus of kidney
CPT/HCPCS: 74177; Q9967

== ENCOUNTER 2021-08-27 06:57 | Day surgery (SDC) | payer MEDICARE, OTHER ==
[~2021-08-27 06:57] MED LIST changes: -CHLORHEXIDINE GLUCONATE 15 ML CUP MUCOUS MEM ONE; -DEXAMETHASONE SOD PHOSPHATE 10 MG/ML 1 ML VIAL IV ONE; -ENOXAPARIN 40 MG/0.4 ML SYRINGE SQ STA; +LACTATED RINGERS 1,000 ML IV SCH; +LIDOCAINE 1% (10MG/ML) FOR IV START INTRADERMA PRN; -LIDOCAINE 1% 20 ML VIAL (10MG/ML) FOR IV START INTRADERMA PRN; -MIDAZOLAM (PF) 2 MG/2 ML VIAL IV PRN; -PANTOPRAZOLE 40 MG/10 ML VIAL IV STA; -ceFAZolin IN SWFI 2 GM/20 ML SYRINGE IVP ONE; -fentaNYL (PF) 50 MCG/ML 2 ML AMP IV PRN
[2021-08-27 07:29] VITALS: RESP 16; TEMP 96.8
[2021-08-27] MEDS ORDERED: LIDOCAINE 1% (10MG/ML) FOR IV START SQ ONE (07:36)
--- NOTE | 2021-08-27 07:41 | P.GSHP ---
History of Present Illness H&P Date: 08/27/21 CHIEF COMPLAINT: GERD HISTORY OF PRESENT ILLNESS: The patient is a 55-year-old male who presents reports gastroesophageal reflux disease. Upper endoscopy was offered for further evaluation and management. PAST MEDICAL HISTORY: Please see list. PAST SURGICAL HISTORY: Please see list. MEDICATIONS: Please see list. ALLERGIES: Please see list. SOCIAL HISTORY: No illicit drug use FAMILY HISTORY: No reports of Crohn disease or ulcerative colitis. REVIEW OF ORGAN SYSTEMS: CONSTITUTIONAL: No reports of fevers or chills. GI: Denies any blood in stools or constipation. PHYSICAL EXAM: VITAL SIGNS: Stable GENERAL: Well-developed and pleasant in no acute distress. HEENT: No scleral icterus. Extraocular movements grossly intact. Moist buccal mucosa. NECK: Supple without lymphadenopathy. CHEST: Unlabored respirations. Equal bilateral excursions. CARDIOVASCULAR: Regular rate and rhythm. Distal 2+ pulses. ABDOMEN: Soft, nondistended. MUSCULOSKELETAL: No clubbing, cyanosis, or edema. ASSESSMENT: 1. Gastroesophageal reflux disease PLAN: 1. Recommend proceeding with an upper endoscopy Past Medical History Past Medical History: GERD/Reflux, Myocardial Infarction (CO), Osteoarthritis (OA), Thyroid Disorder Additional Past Medical History / Comment(s): Sinus Problems. Hx of an Eating Disorder, no current issues. "mild heart attack 3 yrs ago, no problems since." Last Myocardial Infarction Date:: 2011 History of Any Multi-Drug Resistant Organisms: MRSA Date of last positivie culture/infection: 2012 MDRO Source:: wound on stomach Past Surgical History: Bariatric Surgery, Cholecystectomy, Orthopedic Surgery Additional Past Surgical History / Comment(s): Bilateral Carpal Tunnel, Left Foot Surgery, Left Knee ACL, gastric bypass 02/02/2016, elbow surgery bilateral, panniculectomy, lysis of abdominal adhesions 01/2018 repair of jejunostomy 3-4-1 9 Past Anesthesia/Blood Transfusion Reactions: Previous Problems w/ Anesthesia, Motion Sickness Additional Past Anesthesia/Blood Transfusion Reaction / Comment(s): Difficult to rouse after administration of anesthesia, difficulty w/urination after having catheter Past Psychological History: Anxiety, Depression, Schizoaffective Disorder Smoking Status: Former smoker Past Alcohol Use History: None Reported Additional Past Alcohol Use History / Comment(s): quit smoking 4 1/2 yrs ago, <1/2 ppd Past Drug Use History: None Reported - Past Family History Sister(s) Family Medical History: Deep Vein Thrombosis (DVT) Medications and Allergies Home Medications Medication Instructions Recorded Confirmed Type Calcium Citrate/Vitamin D3 3 tab PO DAILY 11/10/13 08/23/21 History [Calcium Citrate - Vit D3 Tab] FLUoxetine HCL [PROzac] 80 mg PO QAM 01/19/14 08/27/21 History Multivitamin [Men's Multi-Vitamin] 1 tab PO DAILY 10/24/14 08/23/21 History Vitamin A 8,000 unit PO DAILY 10/24/14 08/23/21 History Cholecalciferol [Vitamin D3 (25 1,000 unit PO DAILY 01/12/15 08/23/21 History Mcg = 1000 Iu)] buPROPion XL [Wellbutrin XL] 450 mg PO QAM 01/20/15 08/27/21 History Vitamin E (Dl,Tocopheryl Acet) 400 unit PO DAILY 04/17/17 08/23/21 History [Vitamin E (400 Iu = 180 mg)] polyethylene glycoL 3350 [Miralax] 17 gm PO DAILY #765 packet 07/29/18 08/27/21 Rx Fluticasone Propionate [Flovent 1 puff INHALATION RT-BID PRN 08/07/18 08/27/21 History Diskus] Tamsulosin [Flomax] 0.4 mg PO DAILY #7 cap 08/18/18 08/27/21 Rx Omeprazole [PriLOSEC] 40 mg PO DAILY #90 cap 12/20/20 08/27/21 Rx Levothyroxine Sodium [Synthroid] 50 mcg PO QAM 08/23/21 08/27/21 History Ziprasidone [Geodon] 40 mg PO QAM 08/23/21 08/27/21 History Ziprasidone [Geodon] 60 mg PO HS 08/23/21 08/27/21 History Allergies Allergy/AdvReac Type Severity Reaction Status Date / Time Penicillins Allergy Rash/Hives Verified 08/27/21 07:24 Surgical - Exam Vital Signs Temp Pulse Resp BP Pulse Ox 96.8 F L 56 L 16 117/59 95 08/27/21 07:28 08/27/21 07:28 08/27/21 07:28 08/27/21 07:28 08/27/21 07:28
[2021-08-27] MEDS ORDERED: PROPOFOL 10 MG/ML 20 ML VIAL IV ONE (08:06)
[2021-08-27] MEDS ORDERED: LIDOCAINE 1% INJ 10MG/ML (20 ML MDV) ONE (08:06)
--- NOTE | 2021-08-27 08:30 | P.PCN ---
Date of Procedure: 08/27/21 Description of Procedure: PREOPERATIVE DIAGNOSIS: Dysphagia, upper esophageal Gastroesophageal reflux disease Morbid obesity due to excess calories POSTOPERATIVE DIAGNOSIS: Dysphagia, upper esophageal Gastroesophageal reflux disease Morbid obesity due to excess calories OPERATION: Esophagogastrojejunoscopy with rigid dilatation, 54 Fr SURGEON: Lisseth Sexton MD ANESTHESIA: MAC. INDICATIONS: The patient is a 55-year-old male who presents with a history of dysphagia of the throat. Benefits and risks of the procedure were described. Informed consent was obtained. DESCRIPTION: The patient was brought into the endoscopy suite and laid in the left lateral decubitus position. After a timeout was confirmed, the procedure was initiated. An Olympus gastroscope was passed along the posterior oropharynx down to the distal esophagus where the squamocolumnar junction was unremarkable. The gastric pouch was entered. Additional findings below. A guidewire was placed through the scope with insertion of an [place] rigid dilator. Rigid dilator 54-[place] placed for dilation performed for 2 minutes. The guidewire was removed. The scope was reinserted and advanced to 60 cm from the incisors along the Tj limb. No gastrojejunal ulcers were identified. The patient tolerated the procedure well. FINDINGS: Upper esophageal stenosis addressed with rigid dilator, 54-[place] No chronic gastrojejunal ulceration encountered. RECOMMENDATIONS: Upper endoscopy as needed Plan - Discharge Summary Discharge Rx Participant: No New Discharge Prescriptions: Continue Calcium Citrate/Vitamin D3 [Calcium Citrate - Vit D3 Tab] 3 tab PO DAILY FLUoxetine HCL [PROzac] 80 mg PO QAM Vitamin A 8,000 unit PO DAILY Multivitamin [Men's Multi-Vitamin] 1 tab PO DAILY Cholecalciferol [Vitamin D3 (25 Mcg = 1000 Iu)] 1,000 unit PO DAILY buPROPion XL [Wellbutrin XL] 450 mg PO QAM Vitamin E (Dl,Tocopheryl Acet) [Vitamin E (400 Iu = 180 mg)] 400 unit PO DAILY polyethylene glycoL 3350 [Miralax] 17 gm PO DAILY #765 packet Fluticasone Propionate [Flovent Diskus] 1 puff INHALATION RT-BID PRN PRN Reason: Dyspnea Tamsulosin [Flomax] 0.4 mg PO DAILY #7 cap Ziprasidone [Geodon] 60 mg PO HS Ziprasidone [Geodon] 40 mg PO QAM Omeprazole [PriLOSEC] 40 mg PO DAILY #90 cap Levothyroxine Sodium [Synthroid] 50 mcg PO QAM Discharge Medication List Calcium Citrate/Vitamin D3 [Calcium Citrate - Vit D3 Tab] 3 tab PO DAILY 11/10/13 [History] FLUoxetine HCL [PROzac] 80 mg PO QAM 01/19/14 [History] Multivitamin [Men's Multi-Vitamin] 1 tab PO DAILY 10/24/14 [History] Vitamin A 8,000 unit PO DAILY 10/24/14 [History] Cholecalciferol [Vitamin D3 (25 Mcg = 1000 Iu)] 1,000 unit PO DAILY 01/12/15 [History] buPROPion XL [Wellbutrin XL] 450 mg PO QAM 01/20/15 [History] Vitamin E (Dl,Tocopheryl Acet) [Vitamin E (400 Iu = 180 mg)] 400 unit PO DAILY 04/17/17 [History] polyethylene glycoL 3350 [Miralax] 17 gm PO DAILY #765 packet 07/29/18 [Rx] Fluticasone Propionate [Flovent Diskus] 1 puff INHALATION RT-BID PRN 08/07/18 [History] Tamsulosin [Flomax] 0.4 mg PO DAILY #7 cap 08/18/18 [Rx] Omeprazole [PriLOSEC] 40 mg PO DAILY #90 cap 12/20/20 [Rx] Levothyroxine Sodium [Synthroid] 50 mcg PO QAM 08/23/21 [History] Ziprasidone [Geodon] 40 mg PO QAM 08/23/21 [History] Ziprasidone [Geodon] 60 mg PO HS 08/23/21 [History] [facility] [place] [facility] [place] [facility] Patient Instructions/Handouts: Esophageal Dilation (GEN) Activity/Diet/Wound Care/Special Instructions: Diet as tolerated Discharge Disposition: HOME SELF-CARE
[2021-08-27 09:00] VITALS: BP 128/76; PULSE 58
== END 2021-08-27 09:10 | disposition home or self-care (01) ==
LOC: ORWHC2ENDO 06:57
PROVIDERS: ATTEND Surgery Plastic and Reconstructive Surgery
DX: K22.2 Esophageal obstruction (principal); K21.9 Gastro-esophageal reflux disease without esophagitis; M19.90 Unspecified osteoarthritis, unspecified site; E07.9 Disorder of thyroid, unspecified; I25.2 Old myocardial infarction; F50.9 Eating disorder, unspecified; Z86.14 Personal history of Methicillin resistant Staphylococcus aureus infection; Z98.84 Bariatric surgery status; Z90.49 Acquired absence of other specified parts of digestive tract; Z98.890 Other specified postprocedural states; E66.01 Morbid (severe) obesity due to excess calories; Z68.41 Body mass index [BMI] 40.0-44.9, adult; F32.A Depression, unspecified; F25.9 Schizoaffective disorder, unspecified; Z87.891 Personal history of nicotine dependence; Z82.49 Family history of ischemic heart disease and other diseases of the circulatory system; Z79.890 Hormone replacement therapy; Z79.899 Other long term (current) drug therapy; Z88.0 Allergy status to penicillin
CPT/HCPCS: 43248; J2001; J2704; 43249

== ENCOUNTER → 2021-09-12 | Outpatient (CLI) | payer MEDICARE, OTHER ==
[2021-09-12 14:37] VITALS: BP 108/62; PULSE 59; TEMP 98.4; BMI 42.3
--- NOTE | 2021-09-12 17:12 | P.PN ---
Subjective Progress Note Date: 09/12/21 DATE OF SERVICE: 09/12/2021 CHIEF COMPLAINT: Status post gastric bypass HISTORY OF PRESENT ILLNESS: Darion Dickerson is a 55-year-old gentleman who is status post Tj-en-Y gastric bypass from January 2013. He is 9 years out. He reports occasional epigastric pain. No nausea or vomiting. He has more weight gain. He presents on follow up. His highest weight for his 5 foot 7 frame was 429 pounds. Today he comes in weighing 273 pounds from 277 pounds, 1 month ago. He has lost 4 pounds in 1 months. He has maintained 156 pound weight loss lifetime. Lifetime percent excess weight loss is 57%. His body mass index has been reduced from 67.3 down to 42.9. PAST MEDICAL HISTORY: 1. Morbid obesity due to excess calories, BMI 67.3, initial 2. Depression. 3. Osteoarthritis. 4. Hypothyroidism. 5. Gastroesophageal reflux disease 6. Cataracts. 7. Carpal tunnel syndrome. 8. Obstructive sleep apnea 9. Diabetes type 2 10. Anxiety disorder. 11. Dyslipidemia PAST SURGICAL HISTORY: 1. Open Tj-en-Y gastric bypass. 2. Bilateral ACL repair. 3. Upper endoscopy. 4. Bilateral carpal tunnel release. 5. Bilateral cataract extraction. 6. Drainage of subcutaneous abdominal abscess. 7. Laparoscopic cholecystectomy. 8. Panniculectomy. 9. Lysis of adhesions MEDICATIONS: Home Medications Medication Instructions Recorded Confirmed Calcium Citrate/Vitamin D3 3 tab PO DAILY 11/10/13 09/12/21 [Calcium Citrate - Vit D3 Tab] FLUoxetine HCL [PROzac] 80 mg PO QAM 01/19/14 09/12/21 Multivitamin [Men's Multi-Vitamin] 1 tab PO DAILY 10/24/14 09/12/21 Vitamin A 8,000 unit PO DAILY 10/24/14 09/12/21 Cholecalciferol [Vitamin D3 (25 1,000 unit PO DAILY 01/12/15 09/12/21 Mcg = 1000 Iu)] buPROPion XL [Wellbutrin XL] 450 mg PO QAM 01/20/15 09/12/21 Vitamin E (Dl,Tocopheryl Acet) 400 unit PO DAILY 04/17/17 09/12/21 [Vitamin E (400 Iu = 180 mg)] Fluticasone Propionate [Flovent 1 puff INHALATION RT-BID PRN 08/07/18 09/12/21 Diskus] Levothyroxine Sodium [Synthroid] 50 mcg PO QAM 08/23/21 09/12/21 Ziprasidone [Geodon] 40 mg PO QAM 08/23/21 09/12/21 Ziprasidone [Geodon] 60 mg PO HS 08/23/21 09/12/21 Previous Rx's Medication Instructions Recorded polyethylene glycoL 3350 [Miralax] 17 gm PO DAILY #765 packet 07/29/18 Tamsulosin [Flomax] 0.4 mg PO DAILY #7 cap 08/18/18 Omeprazole [PriLOSEC] 40 mg PO DAILY #90 cap 12/20/20 ALLERGIES: PENICILLIN. SOCIAL HISTORY: Past tobacco use. FAMILY HISTORY: Pertinent for morbid obesity including diabetes and obstructive sleep apnea. REVIEW OF SYSTEMS: CONSTITUTIONAL: His highest weight for his 5 foot 7 frame was 429 pounds. His body mass index was 67.3. ENDOCRINE: Complete resolution of insulin-dependent diabetes. History of hypothyroidism. GASTROINTESTINAL: No blood in stools. Has gastroesophageal reflux disease. HEENT: Wears glasses. No troubles with hearing. PSYCH: History of depression including prior psychosis, now well controlled with medications. CARDIOVASCULAR: Past chest pain. No myocardial infarction. RESPIRATORY: No active sleep apnea. No reports of asthma. MUSCULOSKELETAL: Improvement of osteoarthritis of the joints. NEUROLOGIC: Denies any headache or seizure disorders. HEMATOLOGIC: Denies any easy bruising or bleeding. SKIN: No skin cancer. No rash. PHYSICAL EXAM: VITAL SIGNS: 5 feet 7 inches; 273 pounds. Body mass index 42.3 Vital Signs Temp 98.4 F 09/12/21 14:35 Pulse 59 L 09/12/21 14:35 Resp BP 108/62 09/12/21 14:35 Pulse Ox ABDOMEN: Soft. Nondistended. GENERAL: Well-developed male in no acute distress. HEENT: No sclera icterus. Extraocular movements grossly intact. Moist buccal mucosa. Head is atraumatic, normocephalic. Hears conversational speech. No nasal drainage. NECK: No JV distention. CHEST: Non-labored respirations and equal bilateral excursions. CARDIOVASCULAR: Regular rate and rhythm. Palpable 2+ radial pulses. MUSCULOSKELETAL: No clubbing, cyanosis or edema. NEUROLOGIC: No focal or lateralizing signs. Cranial 2 through 12 intact. PSYCH: Appropriate affect. Alert and oriented to person, place and time. SKIN: Well perfused. Good skin turgor. LABS: Reviewed. Vitamin D low STUDIES: CT of the abdomen and pelvis reviewed with sigmoid diverticulosis. Questionable mesenteric swirl of the mid abdomen. No bowel obstruction. This is my independent interpretation. RADIOLOGY: CT of the abdomen and pelvis findings of kidney stones and diverticulosis. EGD FINDINGS: Upper esophageal stenosis addressed with rigid dilator, 54-[place] No chronic gastrojejunal ulceration encountered. ASSESSMENT: 1. Morbid obesity due to excess caloric intake 2. Body mass index reduced from 67.2 down to 42.3 3. Status post massive weight loss, 182 pounds. 4. Dietary surveillance and counseling 5. Depression. 6. Osteoarthritis. 7. Hypothyroidism. 8. Anxiety disorder. 9. Weight regain. 10. Secondary hyperparathyroidism 11. Vitamin A deficiency, resolved 12. Epigastric pain 13. Vitamin D deficiency PLAN: 1. Overall, he has gained moderate weigh from his lowest. Weight lose of 50 pounds reviewed. 2. Signs of bowel obstruction described for immediate follow-up/ 3. Since upper scope, he reports his symptoms have improved. Upper endoscopy as needed. 4. Follow up in 2 months for weight loss management. 5. Vitamin D 50,000 units weekly prescription. Objective - Vital Signs Vital signs: Vital Signs Temp 98.4 F 09/12/21 14:35 Pulse 59 L 09/12/21 14:35 Resp BP 108/62 09/12/21 14:35 Pulse Ox Intake & Output 09/11/21 09/12/21 09/12/21 18:59 06:59 18:59 Weight 124.284 kg
== END ==
LOC: BARWHC3 13:55
PROVIDERS: ATTEND Surgery Plastic and Reconstructive Surgery
DX: E66.01 Morbid (severe) obesity due to excess calories (principal); Z68.41 Body mass index [BMI] 40.0-44.9, adult; Z71.3 Dietary counseling and surveillance; F32.A Depression, unspecified; M19.90 Unspecified osteoarthritis, unspecified site; E03.9 Hypothyroidism, unspecified; F41.9 Anxiety disorder, unspecified; E21.1 Secondary hyperparathyroidism, not elsewhere classified; E55.9 Vitamin D deficiency, unspecified; E11.36 Type 2 diabetes mellitus with diabetic cataract; E78.5 Hyperlipidemia, unspecified; K21.9 Gastro-esophageal reflux disease without esophagitis; Z88.0 Allergy status to penicillin; Z87.891 Personal history of nicotine dependence; Z98.84 Bariatric surgery status
CPT/HCPCS: 99211

== ENCOUNTER 2022-03-04 07:13 | Day surgery (SDC) | payer MEDICARE, OTHER ==
[2022-02-28 11:36] VITALS: BMI 42.9
[2022-03-04 07:32] VITALS: RESP 16; TEMP 96.4
[2022-03-04] MEDS ORDERED: PROPOFOL 10 MG/ML 20 ML VIAL IV ONE (08:16)
[2022-03-04] MEDS ORDERED: LIDOCAINE 2% INJ 20 MG/ML (2 ML VIAL) ONE (08:16)
--- NOTE | 2022-03-04 08:19 | P.GSHP ---
History of Present Illness H&P Date: 03/04/22 CHIEF COMPLAINT: GERD HISTORY OF PRESENT ILLNESS: The patient is a 56-year-old male who presents reports gastroesophageal reflux disease. Upper endoscopy was offered for further evaluation and management. PAST MEDICAL HISTORY: Please see list. PAST SURGICAL HISTORY: Please see list. MEDICATIONS: Please see list. ALLERGIES: Please see list. SOCIAL HISTORY: No illicit drug use FAMILY HISTORY: No reports of Crohn disease or ulcerative colitis. REVIEW OF ORGAN SYSTEMS: CONSTITUTIONAL: No reports of fevers or chills. GI: Denies any blood in stools or constipation. PHYSICAL EXAM: VITAL SIGNS: Stable GENERAL: Well-developed and pleasant in no acute distress. HEENT: No scleral icterus. Extraocular movements grossly intact. Moist buccal mucosa. NECK: Supple without lymphadenopathy. CHEST: Unlabored respirations. Equal bilateral excursions. CARDIOVASCULAR: Regular rate and rhythm. Distal 2+ pulses. ABDOMEN: Soft, nondistended. MUSCULOSKELETAL: No clubbing, cyanosis, or edema. ASSESSMENT: 1. Gastroesophageal reflux disease PLAN: 1. Recommend proceeding with an upper endoscopy Past Medical History Past Medical History: GERD/Reflux, Myocardial Infarction (CT), Osteoarthritis (OA), Thyroid Disorder Additional Past Medical History / Comment(s): Sinus Problems. Hx of an Eating Disorder, no current issues. "Mild heart attack, no problems since." Last Myocardial Infarction Date:: 2011 History of Any Multi-Drug Resistant Organisms: MRSA Date of last positivie culture/infection: 2012 MDRO Source:: wound on stomach Past Surgical History: Bariatric Surgery, Cholecystectomy, Orthopedic Surgery Additional Past Surgical History / Comment(s): Bilateral Carpal Tunnel, Left Foot Surgery, Left Knee ACL, gastric bypass 02/02/2016, elbow surgery bilateral, panniculectomy, lysis of abdominal adhesions 01/2018, repair of jejunostomy 08-17-18. Past Anesthesia/Blood Transfusion Reactions: Previous Problems w/ Anesthesia, Motion Sickness Additional Past Anesthesia/Blood Transfusion Reaction / Comment(s): Difficult to rouse after administration of anesthesia, difficulty w/urination after having catheter. Smoking Status: Former smoker - Past Family History Sister(s) Family Medical History: Deep Vein Thrombosis (DVT) Medications and Allergies Home Medications Medication Instructions Recorded Confirmed Type Calcium Citrate/Vitamin D3 3 tab PO DAILY 11/10/13 02/28/22 History [Calcium Citrate - Vit D3 Tab] FLUoxetine HCL [PROzac] 80 mg PO QAM 01/19/14 03/04/22 History Multivitamin [Men's Multi-Vitamin] 1 tab PO DAILY 10/24/14 02/28/22 History Vitamin A 8,000 unit PO DAILY 10/24/14 02/28/22 History Cholecalciferol [Vitamin D3 (25 1,000 unit PO DAILY 01/12/15 02/28/22 History Mcg = 1000 Iu)] buPROPion XL [Wellbutrin XL] 450 mg PO QAM 01/20/15 03/04/22 History Vitamin E (Dl,Tocopheryl Acet) 400 unit PO DAILY 04/17/17 02/28/22 History [Vitamin E (400 Iu = 180 mg)] Fluticasone Propionate [Flovent 1 puff INHALATION RT-BID PRN 08/07/18 03/04/22 History Diskus] Tamsulosin [Flomax] 0.4 mg PO DAILY #7 cap 08/18/18 03/04/22 Rx Levothyroxine Sodium [Synthroid] 50 mcg PO QAM 08/23/21 03/04/22 History Ziprasidone [Geodon] 40 mg PO QAM 08/23/21 03/04/22 History Ziprasidone [Geodon] 60 mg PO HS 08/23/21 03/04/22 History Omeprazole [PriLOSEC] 40 mg PO BID #60 cap 01/09/22 03/04/22 Rx Gabapentin [Neurontin] 300 mg PO BID 03/04/22 03/04/22 History Allergies Allergy/AdvReac Type Severity Reaction Status Date / Time Penicillins Allergy Rash/Hives Verified 03/04/22 07:22 Surgical - Exam Vital Signs Temp Pulse Resp BP Pulse Ox 96.4 F L 56 L 16 139/73 96 03/04/22 07:30 03/04/22 07:30 03/04/22 07:30 03/04/22 07:30 03/04/22 07:30
--- NOTE | 2022-03-04 08:44 | P.PCN ---
Date of Procedure: 03/04/22 Description of Procedure: PREOPERATIVE DIAGNOSES: 1. Gastroesophageal reflux disease 2. Epigastric abdominal pain. 3. History of gastric bypass. 4. History of gastric ulcers. 5. Dysphagia POSTOPERATIVE DIAGNOSES: 1. Gastroesophageal reflux disease 2. Diaphragmatic hiatal hernia 3. History of gastric bypass. 4. Gastritis 5. Dysphagia PROCEDURE PERFORMED: Esophagogastrojejunoscopy with cold forceps biopsies, gastric pouch SURGEON: Lisseth Sexton MD ANESTHESIA: MAC. INDICATIONS: The patient is a 56-year-old male with prior history of Tj-en-Y gastric bypass comes in with dysphagia and epigastric pain. With his history of Tj-en-Y gastric bypass, upper endoscopy was offered for further evaluation and management. DESCRIPTION: Patient was brought to the endoscopy suite and laid in the left lateral decubitus position. After adequate IV sedation, a bite block was placed. An Olympus gastroscope was passed along the posterior oropharynx down to the distal esophagus where the squamocolumnar junction was unremarkable. Small hiatal hernia was identified. Jejunal limb excess 7 cm identified. The scope was advanced 60 cm from the incisors. No evidence of foreign body was found. No evidence of active gastrojejunal ulcerations were encountered. Biopsies obtained of gastric pouch gastritis. The GI tract was desufflated. The patient tolerated the procedure well. FINDINGS: 1. No acute gastrojejunal ulceration. 2. No foreign body found along the anastomosis. 3. Diaphragmatic hiatal hernia, 1 cm 4. Blind jejunal limb, seventh 5. Gastric pouch, 5 biopsies obtained 6. No gastric fistulas identified PLAN: 1. Recommend upper endoscopy as needed. Plan - Discharge Summary Discharge Rx Participant: Yes New Discharge Prescriptions: Continue Calcium Citrate/Vitamin D3 [Calcium Citrate - Vit D3 Tab] 3 tab PO DAILY FLUoxetine HCL [PROzac] 80 mg PO QAM Vitamin A 8,000 unit PO DAILY Multivitamin [Men's Multi-Vitamin] 1 tab PO DAILY Cholecalciferol [Vitamin D3 (25 Mcg = 1000 Iu)] 1,000 unit PO DAILY buPROPion XL [Wellbutrin XL] 450 mg PO QAM Vitamin E (Dl,Tocopheryl Acet) [Vitamin E (400 Iu = 180 mg)] 400 unit PO DAILY Fluticasone Propionate [Flovent Diskus] 1 puff INHALATION RT-BID PRN PRN Reason: Dyspnea Tamsulosin [Flomax] 0.4 mg PO DAILY #7 cap Ziprasidone [Geodon] 60 mg PO HS Ziprasidone [Geodon] 40 mg PO QAM Omeprazole [PriLOSEC] 40 mg PO BID #60 cap Gabapentin [Neurontin] 300 mg PO BID Levothyroxine Sodium [Synthroid] 50 mcg PO QAM Discharge Medication List Calcium Citrate/Vitamin D3 [Calcium Citrate - Vit D3 Tab] 3 tab PO DAILY 11/10/13 [History] FLUoxetine HCL [PROzac] 80 mg PO QAM 01/19/14 [History] Multivitamin [Men's Multi-Vitamin] 1 tab PO DAILY 10/24/14 [History] Vitamin A 8,000 unit PO DAILY 10/24/14 [History] Cholecalciferol [Vitamin D3 (25 Mcg = 1000 Iu)] 1,000 unit PO DAILY 01/12/15 [History] buPROPion XL [Wellbutrin XL] 450 mg PO QAM 01/20/15 [History] Vitamin E (Dl,Tocopheryl Acet) [Vitamin E (400 Iu = 180 mg)] 400 unit PO DAILY 04/17/17 [History] Fluticasone Propionate [Flovent Diskus] 1 puff INHALATION RT-BID PRN 08/07/18 [History] Tamsulosin [Flomax] 0.4 mg PO DAILY #7 cap 08/18/18 [Rx] Levothyroxine Sodium [Synthroid] 50 mcg PO QAM 08/23/21 [History] Ziprasidone [Geodon] 40 mg PO QAM 08/23/21 [History] Ziprasidone [Geodon] 60 mg PO HS 08/23/21 [History] Omeprazole [PriLOSEC] 40 mg PO BID #60 cap 01/09/22 [Rx] Gabapentin [Neurontin] 300 mg PO BID 03/04/22 [History] [facility] [facility] [place] [place] [facility] [place] [facility] Patient Instructions/Handouts: Gastritis (ED), Gastritis (DC) Discharge Disposition: HOME SELF-CARE
[2022-03-04 08:49] VITALS: BP 130/76; PULSE 58
== END 2022-03-04 09:13 | disposition home or self-care (01) ==
LOC: ORWHC2ENDO 07:13
PROVIDERS: ATTEND Surgery Plastic and Reconstructive Surgery
DX: K29.50 Unspecified chronic gastritis without bleeding (principal); K21.9 Gastro-esophageal reflux disease without esophagitis; K44.9 Diaphragmatic hernia without obstruction or gangrene; I25.2 Old myocardial infarction; M19.90 Unspecified osteoarthritis, unspecified site; E07.9 Disorder of thyroid, unspecified; F50.9 Eating disorder, unspecified; Z98.84 Bariatric surgery status; Z90.89 Acquired absence of other organs; Z98.890 Other specified postprocedural states; Z87.890 Personal history of sex reassignment; Z82.49 Family history of ischemic heart disease and other diseases of the circulatory system; T75.3XXD Motion sickness, subsequent encounter; Z79.890 Hormone replacement therapy; Z79.899 Other long term (current) drug therapy; Z88.0 Allergy status to penicillin; Z87.11 Personal history of peptic ulcer disease
CPT/HCPCS: 88305; 43239; J2704; J2001